=== PATIENT | male | born 1960 | race Caucasian/White ===

== ENCOUNTER 2017-10-20 13:05 | Emergency (ER) | payer OTHER, SELFPAY | END 2017-10-20 14:37 | disposition home or self-care (01) | PROVIDERS: Emergency Provider Nurse Practitioner; Visit Provider Nurse Practitioner | DX: J06.9 Acute upper respiratory infection, unspecified (principal); I10 Essential (primary) hypertension; J44.9 Chronic obstructive pulmonary disease, unspecified; Z87.891 Personal history of nicotine dependence | CPT/HCPCS: 87804; 87880; 99201 ==

== ENCOUNTER → 2017-11-13 15:33 | Outpatient (POV) | payer OTHER, SELFPAY | PROVIDERS: Visit Provider Internal Medicine | DX: Z00.00 Encounter for general adult medical examination without abnormal findings (principal) ==

== ENCOUNTER → 2018-03-08 09:34 | Outpatient (CLI) | payer OTHER, SELFPAY ==
--- NOTE | 2018-03-08 09:46 | XR_ITS ---
XR foot RT min 3V HISTORY: Atraumatic pain ITS.REASON: INJURY OF RT FOOT ORDERING PHYSICIAN: Evelia Jernigan PATIENT AGE: 57 years COMPARISON: None FINDINGS: Osteoarthritic changes are present at the first metatarsophalangeal joint with bony hypertrophic changes of the distal aspect of the first metatarsal. IMPRESSION: No acute fracture. Osteoarthritis first MTP joint
== END ==
PROVIDERS: PCP Nurse Practitioner Family; Visit Provider Nurse Practitioner Family
DX: S99.921A Unspecified injury of right foot, initial encounter (principal)
CPT/HCPCS: 73630

== ENCOUNTER → 2018-05-09 12:48 | Outpatient (CLI) | payer BC, SELFPAY ==
--- NOTE | 2018-05-09 12:50 | CT_ITS ---
EXAM: CT LUNG LOW DOSE WO CONTRAST COMPARISON Previous CT chest 04/09/2017 HISTORY: Smoking 5 years ago. former smoker history of asthma. 25-30 pack-year ===== TECHNIQUE: The exam was performed on a GE Light Speed [address] scanner using 3.0 mGy CTDI. A low dose helical CT CHEST was performed on a multi-detector scanner. All CT scans at this facility use one or more dose reduction techniques, viz.: automated exposure control; ma/kV adjustment per patient size (including targeted exams where dose is matched to indication; i.e. head) or iterative reconstruction technique. The LDCT was performed in a facility that meets the criteria for the screening program. Data regarding this exam was submitted to ACR which is an approved registry. The order for this exam indicates that it came as a result of a lung cancer screening counseling shard decision-making visit that included all the elements required of such a visit including smoking Cessation. The radiologist interpreting this exam meets the CMS criteria for the LDCT lung cancer screening program. The exam is reported using the Lung-RADS classification scale and reported to the ACR registry. NOTE: This study was performed for the specific purposes of lung cancer screening and is not an alternative to diagnostic chest CT. RADIATION DOSE: CTDI vol(CT dose Index-volume) = 2.9mGy DLP (Dose Length Product) = 115.03 mGy-cm FINDINGS: No suspicious lung nodules or masses.q Indeterminate/Non-actionable Nodules(Category2): Right lung axial slice 48 is a small 5.5 mm nodular density. It appears fairly stable since last year March 2017. Can be followed . Small density seen at the periphery of the left lung, some or left lower lobe is less evident today. Only questionable residual density here. On axial slice 46. No significant findings. Concern. Benign nodules(Category1)None 2.5 mm calcified granuloma anterior aspect R UL axial slice 40 LUNG PARENCHYMA Emphysema: Minimal centrilobular emphysematous changes No significant airway disease only slightly generous airway volume . Minimal scattered areas of scarring. No significant interstitial fibrotic changes OTHER ANATOMIC REGIONS Lymph Nodes: No hilar no mediastinal adenopathy. Malou Pleura: Unremarkable Cardiac: Unremarkable OTHER FINDINGS: No significant findings upper abdomen. Distended food filled stomach currently . Degenerative changes spine, most of the lower C-spine Generous volume thyroid bilaterally stable. IMPRESSION: 1. Lung RADS Category: 2 Indeterminate most likely tiny benign findings. No significant change since last year. Follow-up in one year on LD CT adequate 2. Other findings: No other pertinent findings evident RECOMMENDATIONS: 12 monthd LDCT follow-up
== END ==
PROVIDERS: PCP Nurse Practitioner Family; Visit Provider Internal Medicine
DX: Z87.891 Personal history of nicotine dependence (principal); Z12.2 Encounter for screening for malignant neoplasm of respiratory organs

== ENCOUNTER → 2018-05-21 10:04 | Outpatient (POV) | payer BC, SELFPAY | PROVIDERS: PCP Nurse Practitioner Family; Visit Provider Internal Medicine | DX: Z00.00 Encounter for general adult medical examination without abnormal findings (principal) ==

== ENCOUNTER 2018-11-19 09:30 | Outpatient (RCR) | payer BC, SELFPAY | END 2018-11-19 09:35 | disposition home or self-care (01) | LOC: PT 09:30 | PROVIDERS: Visit Provider Orthopaedic Surgery | DX: M51.36 Other intervertebral disc degeneration, lumbar region (principal) | CPT/HCPCS: 97010; 97012; 97014; 97035; 97110; 97163; 97164; G0283 ==

== ENCOUNTER → 2019-05-05 12:38 | Outpatient (CLI) | payer BC, SELFPAY ==
--- NOTE | 2019-05-05 13:12 | CT_ITS ---
CT lung screening EXAM: CT LUNG LOW DOSE WO CONTRAST HISTORY: 35 pack-year smoking history, asymptomatic for lung cancer ITS.REASON: H/O NICOTINE DEPENDENCE ORDERING PHYSICIAN: Frederikc Benitez MD PATIENT AGE: 59 years COMPARISON: 05/09/2018 TECHNIQUE: The exam was performed on a GE Light Speed [address] scanner using 2.90 mGy CTDI. A low dose helical CT CHEST was performed on a multi-detector scanner. All CT scans at the facility use one or more dose reduction, viz: automated exposure control, ma/kV adjustment per patient size (including targeted exams where dose is matched to indication, i.e. head), or iterative reconstruction technique. The LDCT was performed in a facility that meets the criteria for the screening program. Data regarding this exam was submitted to ACR which is an approved registry. The order for this exam indicates that it came as a result of a lung cancer screening counseling shard decision-making visit that included all the elements required of such a visit including smoking cessation. The radiologist interpreting this exam meets the CMS criteria for the LDCT lung cancer screening program. The exam is reported using the Lung-RADS classification scale and reported to the ACR registry. NOTE: This study was performed for the specific purposes of lung cancer screening and is not an alternative to diagnostic chest CT. RADIATION DOSE: CTDI vol(CT dose Index-volume) = 2.90mG DLP (Dose Length Product) = 104.20 mGcm FINDINGS: Mild coronary artery calcification. There is a stable 7 mm nodule in the right middle lobe. No new nodules are evident. Calcified granuloma right upper lobe. Incidental note made of right-sided gynecomastia. IMPRESSION: 1. Lung RADS Category: 2, benign 2. Other findings: Coronary artery calcifications RECOMMENDATIONS: 12 month LDCT follow-up
== END ==
PROVIDERS: PCP Family Medicine; Visit Provider Internal Medicine
DX: Z12.2 Encounter for screening for malignant neoplasm of respiratory organs (principal); Z87.891 Personal history of nicotine dependence

== ENCOUNTER → 2019-05-27 09:46 | Outpatient (POV) | payer BC, SELFPAY | PROVIDERS: Visit Provider Internal Medicine | DX: Z00.00 Encounter for general adult medical examination without abnormal findings (principal) ==

== ENCOUNTER → 2020-03-18 10:58 | Outpatient (CLI) | payer BC, SELFPAY ==
--- NOTE | 2020-03-18 11:06 | XR_ITS ---
PROCEDURE: XR SHOULDER RT MIN 2V CLINICAL INDICATION: RT SHOULDER INJURY,DECREASED ROM Pain with decreased range of motion COMPARISON: CXR CHEST(2 VIEWS-NOT PORTABLE) from 12/13/2015 FINDINGS: There is mild prominence of the acromioclavicular joint space which appears more prominent compared to 12/13/2015. Has the patient had an interval AC osteotomy? There is moderate subacromial stenosis which may be seen with rotator cuff disease/tears and may be confirmed with MRI. No acute fracture or dislocation is evident. Subchondral cystic changes are present along the greater tubercle of the humerus IMPRESSION: Subacromial stenosis which may be seen with rotator cuff disease/tear is. MRI may provide further evaluation. Suspect interval osteotomy at the AC joint. Subchondral cystic changes of the humeral head No acute fracture Dictated by: Onur Meade MD 03/18/2020 13:11 Electronically signed by Onur Meade MD in [place] 03/18/2020 13:11
== END ==
PROVIDERS: PCP Nurse Practitioner Family; Visit Provider Nurse Practitioner Family
DX: S49.91XA Unspecified injury of right shoulder and upper arm, initial encounter (principal); M25.611 Stiffness of right shoulder, not elsewhere classified
CPT/HCPCS: 73030

== ENCOUNTER → 2020-06-17 10:48 | Outpatient (CLI) | payer BC, SELFPAY ==
--- NOTE | 2020-06-17 10:53 | CT_ITS ---
PROCEDURE: CT LUNG SCREENING CLINICAL INDICATION: LDCT screening Former smoker Quit smoking 5 years ago 52.5 pack year smoking history COMPARISON: CT LUNGSCREEN CT lung screening from 05/05/2019 TECHNIQUE: The exam was performed on a GE Light Speed [address] scanner using 2.90 mGy CTDI. A low dose helical CT CHEST was performed on a multi-detector scanner. All CT scans at the facility use one or more dose reduction, viz: automated exposure control, ma/kV adjustment per patient size (including targeted exams where dose is matched to indication, i.e. head), or iterative reconstruction technique. The LDCT was performed in a facility that meets the criteria for the screening program. Data regarding this exam was submitted to ACR which is an approved registry. The order for this exam indicates that it came as a result of a lung cancer screening counseling shard decision-making visit that included all the elements required of such a visit including smoking cessation. The radiologist interpreting this exam meets the CMS criteria for the LDCT lung cancer screening program. The exam is reported using the Lung-RADS classification scale and reported to the ACR registry. NOTE: This study was performed for the specific purposes of lung cancer screening and is not an alternative to diagnostic chest CT. RADIATION DOSE: CTDI vol(CT dose Index-volume) = 2.90mG DLP (Dose Length Product) = 105.51 mGcm FINDINGS: Or changes of COPD. There is a stable 6 mm noncalcified nodule in the right middle lobe just inferior to the minor fissure. A new rounded soft tissue mass is present in the right lower lobe posteriorly measuring 15 mm by 17 mm. There are small satellite nodules around this nodule with some minimal perinodular consolidation. This has developed since the previous exam. A 5 mm noncalcified nodules present in the left lower lobe not significantly changed image 40. No effusions or infiltrates. There are degenerative changes in the thoracic spine. OTHER FINDINGS: Mild coronary artery calcifications. IMPRESSION: Lung-RADS Category 4A, suspicious regarding the new nodule with small satellite nodules in the right lower lobe. This could very well be inflammatory/infectious in nature. Neoplasm is also consideration. This is at the end of a terminal ductal bronchial unit and should be accessible for tissue sampling with bronchoscopy. Follow-up : Suggest diagnostic CT without and with contrast. If this persist and does not enhance as a vascular abnormality then, would recommend pulmonary consult with bronchoscopy with tissue sampling Dictated by: Onur Meade MD 06/28/2020 13:12 Onur Meade MD in [place] 06/28/2020 13:12
== END ==
PROVIDERS: PCP Nurse Practitioner Family; Visit Provider Internal Medicine Pulmonary Disease
DX: Z87.891 Personal history of nicotine dependence (principal)

== ENCOUNTER → 2020-08-30 18:49 | Outpatient (CLI) | payer BC, SELFPAY ==
[2020-08-30 19:41] LABS: Alanine Aminotransferase 37 U/L (12-78); Albumin Level 4.5 g/dl (3.5-5.0); Albumin/Globulin Ratio 1.7 (1.1-1.8); Alkaline Phosphatase 103 U/L (38-126); Anion Gap 16.3 mEq/L (5-15); Aspartate Amino Transferase 32 U/L (17-59); Bilirubin,Total 0.5 mg/dl (0.2-1.3); Blood Urea Nitrogen 18 mg/dl (9-20); Calcium 9.8 mg/dl (8.4-10.2); Carbon Dioxide 26 mmol/L (22.0-30.0); Chloride 103 mmol/L (98-107); Creatine Kinase 246 U/L (55-170); Estimated Glomerular Filt Rate 62 ml/min (>60); GFR (African American) 75 ML/MIN (>60); Globulin 2.7 g/dL (1.3-3.2); Glucose 96 mg/dl (74-100); Potassium 4.3 mmoL/L (3.5-5.1); Sodium 141 mmol/L (136-145); Total Protein,Serum 7.2 g/dl (6.3-8.2)
[2020-08-30 19:46] LABS: C-Reactive Protein 4.8 mg/L (0-4)
[2020-08-30 21:21] LABS: Basophils # 0.1 K/mm3 (0-0.2); Basophils % 0.6 % (0.1-2.0); Eosinophils # 0.1 K/mm3 (0.0-0.4); Eosinophils % 1.3 % (0.1-12.0); Hematocrit 46.5 % (42.0-52.0); Hemoglobin 15.6 g/dL (14.1-18.0); Lymphocytes # 2.2 K/mm3 (0.7-4.5); Lymphocytes % 23.5 % (10-50); Mean Corpuscular HGB Conc 33.6 g/dL (31.8-35.4); Mean Corpuscular Hemoglobin 31.5 pg (27.0-31.2); Mean Corpuscular Volume 93.8 fl (80-94); Mean Platelet Volume 8.1 fl (7.4-10.4); Monocytes # 0.6 K/mm3 (0.1-1.0); Monocytes % 6.3 % (1.7-9.3); Neutrophils # 6.5 K/mm3 (1.8-7.8); Neutrophils % 68.3 % (37.0-80.0); Platelet Count 235 K/mm3 (142-424); Red Blood Count 4.96 M/mm3 (4.60-6.20); Red Cell Distribution Width 13.5 % (11.5-17.5); White Blood Count 9.5 K/mm3 (4.8-10.8)
[2020-08-30 22:00] LABS: Erythrocyte Sedimentation Rate 10 mm/hr (0-20)
== END ==
PROVIDERS: Visit Provider Internal Medicine Infectious Disease
DX: M00.811 Arthritis due to other bacteria, right shoulder (principal); M86.9 Osteomyelitis, unspecified
CPT/HCPCS: 80053; 82550; 85025; 85651; 86140

== ENCOUNTER 2020-10-01 10:00 | Outpatient (RCR) | payer BC, MEDICAID, SELFPAY | END 2020-10-01 10:05 | disposition home or self-care (01) | LOC: PT 10:00 | PROVIDERS: Visit Provider Orthopaedic Surgery | DX: M25.511 Pain in right shoulder (principal) | CPT/HCPCS: 97010; 97014; 97016; 97033; 97035; 97110; 97140; 97163; 97164; G0283 ==

== ENCOUNTER 2020-10-04 09:45 | Emergency (ER) | payer MEDICAID, SELFPAY ==
[2020-10-04 09:54] VITALS: BP 167/100; PULSE 92; RESP 16; TEMP 36.8; O2SAT 94; BMI 26.4
--- NOTE | 2020-10-04 10:11 | XR_ITS ---
PROCEDURE: XR CHEST PORTABLE CLINICAL HISTORY: soa Shortness of air with COMPARISON: CR CXR CHEST(2 VIEWS-NOT PORTABLE) from 08/01/2015 CR CXR CHEST(2 VIEWS-NOT PORTABLE) from 10/27/2015 CR CXR CHEST(2 VIEWS-NOT PORTABLE) from 12/13/[address] [facility] [address] CHEST W/O CONTRAST from 04/09/2017 FINDINGS: The cardiomediastinal silhouette and pulmonary vascularity are within normal limits. The lungs are clear without infiltrates, suspicious nodules, or pleural effusions. No acute bony abnormalities. IMPRESSION: No acute findings. Dictated by: Onur Meade MD 10/04/2020 10:42 Onur Meade MD in [place] 10/04/2020 10:42
[2020-10-04 10:31] LABS: Chloride 102 mmol/L (98-107)
[2020-10-04 10:32] LABS: Potassium 4.4 mmoL/L (3.5-5.1); Sodium 139 mmol/L (136-145)
[2020-10-04 10:34] LABS: Blood Urea Nitrogen 15 mg/dl (9-20); Creatinine Clearance Estimated 89 mL/min (50-200); Estimated Glomerular Filt Rate 69 ml/min (>60); GFR (African American) 83 ML/MIN (>60)
[2020-10-04 10:35] LABS: Anion Gap 12.4 mEq/L (5-15); Calcium 9.9 mg/dl (8.4-10.2); Carbon Dioxide 29 mmol/L (22.0-30.0); Glucose 116 mg/dl (74-100)
--- NOTE | 2020-10-04 10:44 | ECG_ITS ---
APPROVED REPORT Exam: Resting ECG HR:93 bpm ECG Measurements Heart Rate 93 AXES OK 140 P 62 QRSd 76 QRS 45 QT 364 T 80 QTc 452 Conclusion Normal sinus rhythm Normal ECG Electronically signed by : Dev Crockett, 10/04/2020 19:08:42
--- NOTE | 2020-10-04 10:45 | HMH.EDGENADL ---
ED Disposition Clinical Impression: Bronchitis Disposition: Home, Self-Care Condition on Discharge: Good Instructions: DI for Chronic Bronchitis Prescriptions: predniSONE [Deltasone 20mg tablet] 40 mg PO DAILY 5 Days #10 tab Prescription Printed Fluticasone/Umeclidin/Vilanter [Trelegy Ellipta 100-62.5-25] 1 each IH DAILY #1 blst.w.dev Prescription Printed Azithromycin [Z-Mook 250mg Tab*] 250 mg PO UD DOSE PK #6 tab Prescription Printed Referrals: Dev Moseley MD [Primary Care Provider] - - Critical Care Critical Care Time: No Attestation: On 10/04/20, the high probability of a clinically significant, sudden or life threatening deterioration of the following system(s) required my full and direct attention, intervention and personal management. The time I documented below is in addition to time spent performing reported procedures but includes the following listed in this critical care notation. Medical Decision Making - Bruno Inquiry Pt receiving controlled substance: No Vital Signs: 10/04/20 09:54 10/04/20 11:16 10/04/20 12:25 Temperature 98.3 F 98.2 F Temperature Source Oral Oral Pulse Rate 91 H Pulse Rate [Right] 92 H 99 H Respiratory Rate 16 20 16 Blood Pressure 136/86 Blood Pressure [Right Arm] 167/100 H 146/102 H Blood Pressure Mean [Right Arm] 122 116 Blood Pressure Source Automatic Cuff Blood Pressure Source [Right Arm] Automatic Cuff Automatic Cuff Blood Pressure Position Sitting Blood Pressure Position [Right Arm] Sitting Sitting 02 Sat by Pulse Oximetry 94 L 93 L Oxygen Delivery Method Room Air Room Air - Lab Data Lab Results 10/04/20 09:59: WBC 10.2, RBC 5.21, Hgb 16.7, Hct 48.0, MCV 92.0, MCH 32.0 H, MCHC 34.8, RDW 13.7, Plt Count 209, MPV 7.3 L, Neut % (Auto) 70.7, Lymph % (Auto) 15.1, [place] % (Auto) 4.6, Eos % (Auto) 8.6, Baso % (Auto) 1.1, Neut # (Auto) 7.2, Lymph # (Auto) 1.5, [place] # (Auto) 0.5, Eos # (Auto) 0.9 H, Baso # (Auto) 0.1 12/14/20 09:59: Sodium 139, Potassium 4.4, Chloride 102, Carbon Dioxide 29, Anion Gap 12.4, BUN 15, Creatinine 1.10, Estimated Creat Clear 89, Estimated GFR 69, Est GFR ( Amer) 83, Glucose 116 H, Calcium 9.9, Troponin I < 0.01 Result diagrams: 10/04/20 09:59 10/04/20 09:59 Orders (Tests/Meds): ED MEDICATIONS Discontinued Medications Generic Name Dose Route Start Last Admin Trade Name Freq PRN Reason Stop Dose Admin Albuterol Sulfate 8 puffs 10/04/20 10:12 10/04/20 10:55 Albuterol-Hfa 90mcg/Puff Inhaler 8gm IH 10/04/20 10:13 8 puffs ONCE ONE Administration Methylprednisolone Sodium Succinate 125 mg 10/04/20 10:12 10/04/20 10:44 Methylprednisolone Sod Succ 125mg Vial IV 10/04/20 10:13 125 mg ONCE ONE Administration Miscellaneous 1 unit 10/04/20 10:12 10/04/20 10:55 Aerochamber/Optihaler MC 10/04/20 10:13 1 unit ONCE ONE Administration ORDERS Category Date Time Status ECG Request by /Iker Stat Y 10/04/20 10:11 Stop Req Medical Decision Narrative: The patient is a 60 year old male who presents with shortness of breath. On arrival he is hemodyanmically stable, tachycardic to the 110s and hypertensive to the 160s. Lungs are clear. Labs including CBC, BMP, troponins were obtained as well as CXR. EKG is nonischemic and intervals are WNL. Low risk for PE by Well's criteria. No concern for ACS. likely COPD exacerbation. Given albuterol MDI and solumedrol 125 mg IV. On reevaluation patient feels somewhat better. Will treat for bronchitis with prednsione, azithromycin and refill his inhalers. Will give return precautions. General Adult HPI - General Chief complaint: Shortness of Breath/Dyspnea Stated complaint: soa Time Seen by Provider: 10/04/20 09:55 Mode of Arrival: Ambulatory Limitations: No Limitations Description of Symptoms (Recalled from ER Triage Doc. by RN): Pt c/o SOA over the past couple of days with productive cough. Advises he has history of resp illness
[2020-10-04 10:49] LABS: Troponin I < 0.01 ng/ml (0.00-0.034)
[2020-10-04 10:57] LABS: Basophils # 0.1 K/mm3 (0-0.2); Basophils % 1.1 % (0.1-2.0); Eosinophils # 0.9 K/mm3 (0.0-0.4); Eosinophils % 8.6 % (0.1-12.0); Hemoglobin 16.7 g/dL (14.1-18.0); Lymphocytes # 1.5 K/mm3 (0.7-4.5); Lymphocytes % 15.1 % (10-50); Mean Corpuscular HGB Conc 34.8 g/dL (31.8-35.4); Mean Platelet Volume 7.3 fl (7.4-10.4); Monocytes # 0.5 K/mm3 (0.1-1.0); Monocytes % 4.6 % (1.7-9.3); Neutrophils # 7.2 K/mm3 (1.8-7.8); Neutrophils % 70.7 % (37.0-80.0); Platelet Count 209 K/mm3 (142-424); Red Blood Count 5.21 M/mm3 (4.60-6.20); Red Cell Distribution Width 13.7 % (11.5-17.5); White Blood Count 10.2 K/mm3 (4.8-10.8)
[2020-10-04 11:16] VITALS: BP 146/102; PULSE 99; RESP 20; O2SAT 93
[2020-10-04 12:25] VITALS: BP 136/86; PULSE 91; RESP 16; TEMP 36.8; O2SAT 94
== END 2020-10-04 12:28 | disposition home or self-care (01) ==
PROVIDERS: Emergency Provider Emergency Medicine; PCP Family Medicine
DX: J20.9 Acute bronchitis, unspecified (principal); J45.909 Unspecified asthma, uncomplicated; Z87.891 Personal history of nicotine dependence
CPT/HCPCS: 71045; 80048; 84484; 85025; 93005; 96374; 99283

== ENCOUNTER → 2020-10-29 10:41 | Outpatient (CLI) | payer OTHER, SELFPAY ==
--- NOTE | 2020-10-29 10:45 | US_ITS ---
PROCEDURE: US EXTREMITY RT LIMITED CLINICAL INDICATION: MASS OF RT AXILLA COMPARISON: No exams were available for comparison FINDINGS: No sonographic abnormalities evident. No cystic lesions or solid mass is apparent. Small nodes are present in the right axilla less than 2 cm. IMPRESSION: No cystic or solid mass is apparent Dictated by: Onur Meade MD 10/30/2020 07:38 Onur Meade MD in [place] 10/30/2020 07:38
== END ==
PROVIDERS: PCP Nurse Practitioner Family; Visit Provider Nurse Practitioner Family
DX: R22.31 Localized swelling, mass and lump, right upper limb (principal)
CPT/HCPCS: 76882

== ENCOUNTER → 2020-12-20 12:40 | Outpatient (CLI) | payer OTHER, SELFPAY ==
[2020-12-20 13:25] VITALS: PULSE 75; PULSE 82
--- NOTE | 2020-12-20 14:11 | CT_ITS ---
PROCEDURE: CT CHEST WO CON CLINICAL INDICATION: Nodule followup Asthma soa Right sided ln COMPARISON: CT LUNGSCREEN CT lung screening from 05/05/[address] LUNG SCREENING from 06/17/2020 TECHNIQUE: Axial images obtained with sagittal and coronal reformats. All CT scans at the facility use one or more dose reduction, viz: automated exposure control, ma/kV adjustment per patient size (including targeted exams where dose is matched to indication, i.e. head), or iterative reconstruction technique. FINDINGS: Coronary artery calcifications are present. There is normal heart size. There are few scattered small mediastinal lymph nodes. No mediastinal or hilar mass or adenopathy. There is a stable 6 mm nodular opacity along the right minor fissure anteriorly. There is a persistent lesion in the right lower lobe which appears slightly more prominent. The lesion measures 2 cm AP and 1.7 cm transverse with adjacent satellite nodules the largest of which is lateral and measures 6 mm . This lesion is contiguous with the posterior basilar segmental bronchus and could be infectious or neoplastic. No effusions are evident. No new nodules are apparent. Degenerative changes are present in the thoracic spine. IMPRESSION: Persistent right lower lobe mass macrolobular in nature with a few small satellite nodules. The lesion appears slightly more voluminous compared to the previous exam. Neoplasm is considered. Dictated by: Onur Meade MD 12/21/2020 13:20 Onur Meade MD in [place] 12/21/2020 13:20
== END ==
PROVIDERS: PCP Family Medicine; Visit Provider Internal Medicine Pulmonary Disease
DX: R91.8 Other nonspecific abnormal finding of lung field (principal)
CPT/HCPCS: 71250; 94060; 94618; 94640; 94726; 94729

== ENCOUNTER 2021-01-06 13:00 | Outpatient (RCR) | payer OTHER, SELFPAY | END 2021-01-06 13:05 | disposition home or self-care (01) | LOC: PT 13:00 | PROVIDERS: Visit Provider Orthopaedic Surgery | DX: M25.511 Pain in right shoulder (principal); M75.101 Unspecified rotator cuff tear or rupture of right shoulder, not specified as traumatic | CPT/HCPCS: 97010; 97014; 97033; 97110; 97163; G0283 ==

== ENCOUNTER → 2021-01-14 07:23 | Outpatient (CLI) | payer OTHER, SELFPAY | PROVIDERS: PCP Family Medicine; Visit Provider Obstetrics & Gynecology Gynecology | DX: Z01.818 Encounter for other preprocedural examination (principal); Z11.52 Encounter for screening for COVID-19 | CPT/HCPCS: U0003 ==

== ENCOUNTER → 2021-01-27 13:56 | Outpatient (CLI) | payer OTHER, SELFPAY ==
--- NOTE | 2021-01-27 14:05 | XR_ITS ---
PROCEDURE: XR KNEE LT 3V CLINICAL INDICATION: SWELLING OF LT KNEE JOINT, PRIMARY OSTEOARTHRITIS OF LT KNEE COMPARISON: No exams were available for comparison FINDINGS: No fracture or dislocation. No lytic or blastic change. There is normal mineralization. 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 There are minimal osteoarthritic changes of the medial compartment and patellofemoral joint with suspected small suprapatellar effusion. Minimal chondrocalcinosis noted of the lateral compartment. Other findings:None. IMPRESSION: 1. Minimal osteoarthritic change with chondrocalcinosis and bipartite patella with small knee joint effusion Dictated by: Onur Meade MD 01/27/2021 14:23 Onur Meade MD in [facility] 01/27/2021 14:23
== END ==
PROVIDERS: PCP Nurse Practitioner Family; Visit Provider Nurse Practitioner Family
DX: M25.462 Effusion, left knee (principal); M17.12 Unilateral primary osteoarthritis, left knee
CPT/HCPCS: 73562

== ENCOUNTER → 2021-06-07 12:01 | Outpatient (CLI) | payer OTHER, SELFPAY ==
--- NOTE | 2021-06-07 12:10 | XR_ITS ---
PROCEDURE: XR HIP RT 2-3V W/PELVIS CLINICAL INDICATION: LUMBAGO WITH SCIATICA, LEFT AND RIGHT HIP PAIN COMPARISON: CR XR HIP LT 2-3V W/PELVIS from 06/07/2021 FINDINGS: There are mild osteoarthritic changes of the both hips with concentric with slight loss of joint space and acetabular osteophyte formation. No fracture or dislocation. No lytic changes. There is a 12 mm sclerotic focus along the left ilium medially. This may represent a bone island. Follow-up may confirm stability. IMPRESSION: Mild osteoarthritic change of both hips. Sclerotic lesion of the left ilium medially which may be due to a bone island. Stability may be confirmed with follow-up Dictated by: Onur Meade MD 06/07/2021 13:36 Onur Meade MD in [facility] 06/07/2021 13:36
--- NOTE | 2021-06-07 12:10 | XR_ITS ---
PROCEDURE: XR LUMBAR SPINE MIN 4V CLINICAL INDICATION: LUMBAGO WITH SCIATICA, LEFT AND RIGHT HIP PAIN COMPARISON: CT SPLUMBWO CT lumbar spine wo con from 09/15/2018 FINDINGS: There is normal alignment. There has been prior posterior fusion at L4 and L5 with inter pedicular screws in place. Disc spacer device is present at that level. There is degenerative disc disease at L4-5 with decrease in the disc space and anterior osteophytes. Small anterior osteophytes are also present at L2 and L3. Degenerative disc disease is also present in the lower thoracic spine. No acute fracture. Other findings:None. IMPRESSION: Postsurgical and degenerative changes, no acute finding. Dictated by: Onur Meade MD 06/07/2021 13:31 Onur Meade MD in [facility] 06/07/2021 13:31
== END ==
PROVIDERS: PCP Family Medicine; Visit Provider Nurse Practitioner Family
DX: M25.552 Pain in left hip (principal); M25.551 Pain in right hip; M54.42 Lumbago with sciatica, left side; M54.41 Lumbago with sciatica, right side
CPT/HCPCS: 72110; 73502

== ENCOUNTER → 2021-06-30 14:42 | Outpatient (CLI) | payer OTHER, SELFPAY ==
--- NOTE | 2021-06-30 14:42 | CT_ITS ---
PROCEDURE INFORMATION: Exam: CT Chest Without Contrast; Diagnostic Exam date and time: 06/30/2021 2:42 PM Age: 61 years old Clinical indication: Abnormal findings; Abnormal radiologic exam of lung or chest; Patient HX: F/u from prior abnormal CT; Additional info: 6 month f/u TECHNIQUE: Imaging protocol: Diagnostic computed tomography of the chest without contrast. Radiation optimization: All CT scans at this facility use at least one of these dose optimization techniques: automated exposure control; mA and/or kV adjustment per patient size (includes targeted exams where dose is matched to clinical indication); or iterative reconstruction. COMPARISON: CT CHEST WO CON 12/20/2020 2:38 PM FINDINGS: Lungs: Attention is directed to the right lower lobe. There is a somewhat triangular macrolobular noncalcified mass present within the right lower lobe. Again, it measures 2.0 x 1.7 cm in size. It is stable. There is a small calcified granuloma noted within the anterior aspect of the right mid lung field. It measures 3 mm in diameter and is stable when compared with prior examination. Series number 3, image 36. Pleural spaces: Unremarkable. No pneumothorax. No pleural effusion. Heart: Unremarkable. No cardiomegaly. No pericardial effusion. Coronary arteries: There is minimal calcification noted along the course of the left coronary artery. Mediastinal space: No evidence of mediastinal or hilar mass. Aorta: Unremarkable. No aortic aneurysm. Lymph nodes: There are visible unenlarged station 4 and station 7 lymph nodes identified. Bones/joints: Unremarkable. No acute fracture. Mild degenerative changes of the thoracic spine. Soft tissues: Unremarkable. IMPRESSION: Taking into account differences in technique no real interval change in the appearance of the chest since prior examination of 12/20/2020. For both low risk and high risk patients, consider CT Chest at 3 months, PET/CT, or biopsy. (Reference: [place]) References: Samrahorivas Johnson, et al. Guidelines for Management of Incidental Pulmonary Nodules Detected on CT Images: From the Fleischner Society 2017. Radiology. 2017;284(1):228-243.
== END ==
PROVIDERS: PCP Family Medicine; Visit Provider Internal Medicine Pulmonary Disease
DX: R91.8 Other nonspecific abnormal finding of lung field (principal)
CPT/HCPCS: 71250

== ENCOUNTER 2021-07-04 09:24 | Emergency (ER) | payer OTHER, SELFPAY ==
[2021-07-04 09:24] VITALS: BP 126/79; PULSE 107; RESP 22; TEMP 37; O2SAT 96; BMI 26.4
--- NOTE | 2021-07-04 10:07 | HMH.EDUTC ---
[facility] [place] Clinical Impression: Exposure to COVID-19 virus URI (upper respiratory infection) Qualifiers: URI type: unspecified URI Qualified Code(s): J06.9 - Acute upper respiratory infection, unspecified Disposition: Home, Self-Care Condition on Discharge: Good Instructions: DI for COVID-19 (Suspected or Confirmed ), Coronavirus Disease 2019, Preventing the Spread of Coronavirus Discharge Instructions Additional Instructions: *Monitor Temp, Over the counter Motrin or Tylenol as directed/as needed Tylenol every 4 hours and Motrin every 6 hours (as long as your family doctor has told you that you can take it) for fever or pain. and straight to ER if unable to lower temp less than 101.0 after medication given *Warm salt water gargles may help to soothe the throat *Throat Lozenges *Warm fluids like tea with honey may help to soothe the throat *Sleep elevated *Humidifier/Vaporizer *Flonase 2 sprays in each nostril daily but be aware that it may take 2-3 days before you notice improvement *Bromfed may cause drowsiness. Know how it effects you (your child) before driving, caring for small child, or sending your child to school. Not other antihistamines/allergy medications while taking bromfed Your throat swab was sent for culture. Those results are typically sent to your primary care. Be sure to follow up in 2-3 days with your family doctor/primary care physician if no improvement so they can review those result and treat if necessary. If you don?t have a primary care doctor, I recommend you get one but in the mean time, you will have to return to a walk in clinic Follow up IMMEDIATELY for new or worsening symptoms or no Noticeable improvement over the next 48-72 hours. 911 for difficulty breathing or swallowing You were tested for today for COVID19 your test result should be back in the next 24-48 hours, you was given handout on how to check for your results on [facility] if you have issues or no internet access you may call the [facility] You was given a handout with instructions for Self Quarantine and Self isolation for while you wait on test results and what to do if they are positive If you are positive the Health Dept will be contacting you also Make sure to take your Vitamins Vit. C Vit D and Zinc if you can take them Prescriptions: methylPREDNISolone [Medrol 4mg tab] 4 mg PO DIRECTED #21 tab Transmission Status: Pending to [id number] Azithromycin [Z-Mook 250mg Tab] 250 mg PO DIRECTED #6 tab Transmission Status: Pending to [id number] Referrals: Dev Moseley MD [Primary Care Provider] - As needed Forms: Work/School Release Time of Disposition: 10:20 Medical Decision Making - Bruno Inquiry Pt receiving controlled substance: No Bruno was queried for this patient: No Vital Signs: 07/04/21 09:24 Temperature 98.6 F Temperature Source Oral Pulse Rate [Left Radial] 107 H Respiratory Rate 22 Blood Pressure [Left Arm] 126/79 Blood Pressure Mean [Left Arm] 94 Blood Pressure Source [Left Arm] Automatic Cuff Blood Pressure Position [Left Arm] Sitting 02 Sat by Pulse Oximetry 96 Oxygen Delivery Method Room Air Orders (Tests/Meds): ORDERS Category Date Time Status Covid-19 Nasal PCR ([facility]) Routine Lab 07/04/21 09:48 Ordered Medical Decision Narrative: Patient states that he has taken both azithromycin and Medrol in the past without complications or reactions [facility] [place] - General Stated complaint: covid exposure and symptoms Time Seen by Provider: 07/04/21 10:07 Mode of Arrival: Ambulatory Source of Information: Patient Limitations: No Limitations Description of Symptoms (Recalled from Triage Doc. by RN): Pt c/o COVID symptoms since Sunday HEENT Symptoms (Recalled from RN notes): No Resp Symptoms (Recalled from RN notes): No Skin Symptoms (Recalled from RN notes): No MS Symptoms (Recalled from RN notes): No Functional Status (Recalled from RN notes): n/a - His
[2021-07-04 10:23] VITALS: BP 126/79; PULSE 107; RESP 22; TEMP 37; O2SAT 96
== END 2021-07-04 10:26 | disposition home or self-care (01) ==
PROVIDERS: Emergency Provider Nurse Practitioner; PCP Family Medicine
DX: U07.1 COVID-19 (principal); J06.9 Acute upper respiratory infection, unspecified
CPT/HCPCS: 99202; C9803; G0463; U0003; U0005

== ENCOUNTER 2021-07-10 10:02 | Inpatient (IN) | payer OTHER, SELFPAY ==
[2021-07-10] VITALS (12 sets, daily range): BP systolic 124–149; BP diastolic 74–89; PULSE 84–97; RESP 16–32; TEMP 36.8–37.4; O2SAT 78–100; BMI 26.4; BMI 23.7
--- NOTE | 2021-07-10 10:10 | ECG_ITS ---
APPROVED REPORT Exam: Resting ECG HR:86 bpm ECG Measurements Heart Rate 86 AXES OR 124 P 41 QRSd 82 QRS 10 QT 368 T 86 QTc 440 Conclusion Normal sinus rhythm Nonspecific ST and T wave abnormality Abnormal ECG Electronically signed by : Dev Crockett MD 07/12/2021 17:40:06
--- NOTE | 2021-07-10 10:15 | XR_ITS ---
PROCEDURE INFORMATION: Exam: XR Chest Exam date and time: 07/10/2021 10:15 AM Age: 61 years old Clinical indication: Pain; On breathing; Additional info: Covid TECHNIQUE: Imaging protocol: XR of the chest. Views: 1 view. COMPARISON: CT CHEST WO CON 06/30/2021 2:57 PM FINDINGS: Tubes, catheters and devices: Overlying EKG wires Lungs: Patchy bilateral opacities may represent multifocal pneumonia including COVID-19.. Pleural spaces: Unremarkable. No pleural effusion. No pneumothorax. Heart/Mediastinum: Unremarkable. No cardiomegaly. Bones/joints: Unremarkable. IMPRESSION: Patchy bilateral opacities may represent multifocal pneumonia including COVID-19..
--- NOTE | 2021-07-10 10:27 | HMH.EDGENADL ---
ED Disposition Clinical Impression: COVID-19, Hypoxia COPD (chronic obstructive pulmonary disease) Qualifiers: COPD type: unspecified COPD Qualified Code(s): J44.9 - Chronic obstructive pulmonary disease, unspecified Disposition: Admitted As Inpatient Condition on Discharge: Fair Referrals: Dev Moseley MD [Primary Care Provider] - - Critical Care Critical Care Time: Yes Attestation: On 07/10/21, the high probability of a clinically significant, sudden or life threatening deterioration of the following system(s) required my full and direct attention, intervention and personal management. The time I documented below is in addition to time spent performing reported procedures but includes the following listed in this critical care notation. Total Critical Care Time: 30 (respiratory failure requiring HFNC after escalation and breahting treatments) Vital system(s) involved:: Respiratory Failure My critical care processes included: Assessment & monitoring of V/S, Initial and Re-exams, Data Review/Interpretation, Medication Orders and management, Documentation Medical Decision Making - Medical Records Medical records reviewed: Yes: I reviewed the patient's medical records. - Bruno Inquiry Pt receiving controlled substance: No Vital Signs: 07/10/21 10:03 07/10/21 10:30 Temperature 98.2 F Temperature Source Oral Pulse Rate 97 H Pulse Rate [Right Radial] 93 H Respiratory Rate 32 H 21 Blood Pressure 142/89 H Blood Pressure [Right Arm] 141/86 H Blood Pressure Mean [Right Arm] 104 Blood Pressure Source [Right Arm] Manual Cuff/ Doppler Blood Pressure Position [Right Arm] Sitting 02 Sat by Pulse Oximetry 78 L 89 L Oxygen Delivery Method Room Air Nasal Cannula Oxygen Flow Rate (LPM) 6 - Lab Data Lab Results 07/10/21 10:15: WBC 10.2, RBC 4.60, Hgb 14.5, Hct 42.9, MCV 93.2, MCH 31.5 H, MCHC 33.8, RDW 12.2, Plt Count 259, MPV 7.4, Neut % (Auto) 87.8 H, Lymph % (Auto) 7.2 L, Gulf % (Auto) 3.4, Eos % (Auto) 0.5, Baso % (Auto) 1.0, Neut # (Auto) 9.0 H, Lymph # (Auto) 0.7, [place] # (Auto) 0.4, Eos # (Auto) 0.1, Baso # (Auto) 0.1, Total Counted 100, Neutrophils % (Manual) 84 H, Lymphocytes % (Manual) 12, Monocytes % (Manual) 4, Platelet Estimate Normal, Macrocytosis 1+ 07/10/21 10:15: Sodium 130 L, Potassium 3.2 L, Chloride 87 L, Carbon Dioxide 31 H, Anion Gap 15.2 H, BUN 17, Creatinine 0.90, Estimated Creat Clear 108, Estimated GFR 86, Est GFR ( Amer) 105, Glucose 172 H, Calcium 9.0, Total Bilirubin 0.8, AST 217 H, ALT 190 H, Alkaline Phosphatase 87, Total Protein 7.3, Albumin 4.0, Globulin 3.3 H, Albumin/Globulin Ratio 1.2 07/10/21 10:15: Lactate 1.7 Result diagrams: 07/10/21 10:15 07/10/21 10:15 Orders (Tests/Meds): ED MEDICATIONS Generic Name Dose Route Start Last Admin Trade Name Freq PRN Reason Stop Dose Admin Lactated Ringer's 1,000 mls @ 999 mls/hr 07/10/21 10:45 07/10/21 10:47 Lactated Ringer's 1000 Ml Bag IV 07/10/21 11:45 999 mls/hr .Q1H1M [place] Administration Discontinued Medications Generic Name Dose Route Start Last Admin Trade Name Freq PRN Reason Stop Dose Admin Albuterol/Ipratropium 3 ml 07/10/21 10:36 Ipratropium/Albuterol 3 Ml Neb 07/10/21 10:37 ONCE ONE Albuterol/Ipratropium 6 puff 07/10/21 10:42 Combivent 20mcg/100mcg Respimat Inhaler 07/10/21 10:43 ONCE ONE Dexamethasone Sodium Phosphate 10 mg 07/10/21 10:36 07/10/21 10:46 Dexamethasone 4mg/Ml 5ml Mdv IV 07/10/21 10:37 10 mg ONCE ONE Administration Miscellaneous 1 unit 07/10/21 10:42 Aerochamber/Optihaler 07/10/21 10:43 ONCE ONE Ondansetron HCl 4 mg 07/10/21 10:36 07/10/21 10:46 Ondansetron 4mg/2ml Vial IV 07/10/21 10:37 4 mg ONCE ONE Administration Potassium Chloride 30 meq 07/10/21 10:59 Potassium Chloride 10meq Capsule.Er PO 07/10/21 11:00 ONCE ONE ORDERS Category Date Time Status XR chest portable Stat Exams
[2021-07-10 10:32] LABS: Basophils # 0.1 K/mm3 (0-0.2); Eosinophils # 0.1 K/mm3 (0.0-0.4); Eosinophils % 0.5 % (0.1-12.0); Hematocrit 42.9 % (42.0-52.0); Hemoglobin 14.5 g/dL (14.1-18.0); Lymphocytes # 0.7 K/mm3 (0.7-4.5); Lymphocytes % 7.2 % (10-50); Mean Corpuscular HGB Conc 33.8 g/dL (31.8-35.4); Mean Corpuscular Hemoglobin 31.5 pg (27.0-31.2); Mean Corpuscular Volume 93.2 fl (80-94); Mean Platelet Volume 7.4 fl (7.4-10.4); Monocytes # 0.4 K/mm3 (0.1-1.0); Monocytes % 3.4 % (1.7-9.3); Neutrophils % 87.8 % (37.0-80.0); Platelet Count 259 K/mm3 (142-424); Red Cell Distribution Width 12.2 % (11.5-17.5); White Blood Count 10.2 K/mm3 (4.8-10.8)
[2021-07-10 10:34] LABS: MANUAL DIFFERENTIAL MANUAL DIFFERENTIAL (MANUAL DIFF)
[2021-07-10 10:39] LABS: Alanine Aminotransferase 190 U/L (12-78); Albumin/Globulin Ratio 1.2 (1.1-1.8); Alkaline Phosphatase 87 U/L (38-126); Anion Gap 15.2 mEq/L (5-15); Aspartate Amino Transferase 217 U/L (17-59); Bilirubin,Total 0.8 mg/dl (0.2-1.3); Blood Urea Nitrogen 17 mg/dl (9-20); Carbon Dioxide 31 mmol/L (22.0-30.0); Chloride 87 mmol/L (98-107); Creatinine Clearance Estimated 108 mL/min (50-200); Estimated Glomerular Filt Rate 86 ml/min (>60); GFR (African American) 105 ML/MIN (>60); Globulin 3.3 g/dL (1.3-3.2); Glucose 172 mg/dl (74-100); Lactic Acid 1.7 mmol/L (0.7-2.1); Potassium 3.2 mmoL/L (3.5-5.1); Sodium 130 mmol/L (136-145); Total Protein,Serum 7.3 g/dl (6.3-8.2)
[2021-07-10 10:51] LABS: Lymphocytes % 12 % (10-50); Monocytes % 4 % (2-9); Neutrophils % 84 % (42-76); Platelet Estimate Normal; Total Cells Counted 100
[2021-07-10 10:52] LABS: Macrocytosis 1+
--- NOTE | 2021-07-10 11:02 | PC.NURSE ---
J LUIS MCCARTHY spoke with Dr. Dale is site acquisition manager for Dr. Moseley for admission
--- NOTE | 2021-07-10 11:04 | PC.NURSE ---
notified house mover of admission
--- NOTE | 2021-07-10 11:14 | PC.NURSE ---
RT at BS
--- NOTE | 2021-07-10 11:25 | PC.NURSE ---
1104 bed assignment requested room 204, all staff notified
[2021-07-10 11:35] LABS: ABG Base Excess 4.7 mmol/L (-2.4-2.3); ABG HCO3 26.2 mmhg (22.0-26.0); ABG Oxygen Saturation 86 % (90-100); ABG PCO2 26.9 mmhg (35.0-45.0)
[2021-07-10 11:47] LABS: Allen's Test Acceptable; Oxygen 6L NC %; Source Left Radial
[2021-07-10 11:48] LABS: ABG PH 7.61 mmol/L (7.35-7.45); ABG PO2 44.3 mmhg (80-100)
--- NOTE | 2021-07-10 11:50 | PC.NURSE ---
RT called with abg results results relayed to ER requesting RT place pt on vapotherm
--- NOTE | 2021-07-10 11:58 | PC.NURSE ---
RT at BS placing pt on vapotherm per ER request
--- NOTE | 2021-07-10 12:02 | PC.NURSE ---
pt on vaportherm at 30L and 70% SaO2 98% at this time notified ER MD and warehouseman of vapotherm settings.
--- NOTE | 2021-07-10 12:35 | PC.NURSE ---
attempted to call report to second floor, staff states receiving nurse in d/c another pt and will call back.
--- NOTE | 2021-07-10 13:00 | PC.NURSE ---
report called home ramirez on second floor, states she will send staff down to transport pt.
--- NOTE | 2021-07-10 16:06 | P.CONPHA_ITS ---
[facility] VTE Monitoring - Patient Demographics Admission date: 07/10/21 Report Date: 07/10/21 Time: 16:06 Allergies/Adverse Reactions: Patient Allergies No Known Allergies Allergy (Verified 02/01/21 13:36) Height: 1.8 m Weight: 77.111 kg Patient Problems: Current Active Problems COPD (chronic obstructive pulmonary disease) (Acute) COVID-19 (Acute) Hypoxia (Acute) Transaminitis (Acute) - VTE Risk Labs: VTE Related Lab Results Hgb 14.5 g/dL (14.1-18.0) 07/10/21 10:15 Hct 42.9 % (42.0-52.0) 07/10/21 10:15 Plt Count 259 K/mm3 (142-424) 07/10/21 10:15 BUN 17 mg/dl (9-20) 07/10/21 10:15 Creatinine 0.90 mg/dl (0.66-1.25) 07/10/21 10:15 Estimated Creat Clear 108 mL/min (50-200) 07/10/21 10:15 VTE Score: 5 VTE Risk Level: Low Risk - Prophylaxis VTE Prophylaxis Ordered?: Yes Types of VTE Prophylaxis: TEDS Knee High, Pharmacological Location of Applied Device: Bilateral Lower Extremeties Pharmacologic Type: Enoxaparin
[2021-07-11] VITALS (7 sets, daily range): BP systolic 112–140; BP diastolic 68–87; PULSE 68–74; RESP 18; TEMP 36.7–36.9; O2SAT 91–97
--- NOTE | 2021-07-11 05:16 | PC.NURSE ---
pt is AxOx4, has rested some t/o shift, vapotherm was increased this shift to 40L, 85%, sats 90-93%, has not complained of SOA or pain, states that he has tried to lay prone some
--- NOTE | 2021-07-11 07:16 | HMH.HP ---
*Admission Date: 07/10/21 *Chief complaint: Shortness of breath *History of present illness: 61-year-old male presented to the emergency department with dyspnea on exertion. Patient had a positive Covid test on July 04 and reports his initial symptoms began on July 01. Patient had been seen as an outpatient and prescribed azithromycin and steroids. He has underlying COPD and is already using both controller inhalers and rescue inhalers. Yesterday morning he became so short of breath with exertion he had difficulty fixing his breakfast. Patient came to the emergency department and was found to be hypoxic with O2 sat in the 70s on room air. Patient's work-up with consistent with viral pneumonia from COVID-19 with acute respiratory failure. Patient initially was able to sat in the low 90s on 6 L but had to be transitioned to high flow nasal cannula in the emergency department. Patient has been admitted and placed on dexamethasone, Remdesivir, nutritional supplements. This morning the patient reports feeling better and denies dyspnea with the high flow nasal cannula. [facility] History I have reviewed the patient's past medical history: Yes Medical History: Reports:: Chronic Obstructive Pulmonary Disease (COPD), Hyperlipidemia, Hypertension Denies:: Cancer, Diabetes Mellitus Type 1, Diabetes Mellitus Type 2, MRSA *Have you ever received a pneumonia vaccine?: Yes *Have you received a flu vaccine this season?: Yes Other Medical History: Reports: Cataracts, Sinus Problems, Other (Fungal infection of right lower lobe of lung, osteomyelitis of right should) Amputation: No - *Social History Smoking Status: Former smoker #Yrs smoked (if former smoker): 35 Alcohol Intake: never *Occupational Status:: disabled *Travel in the last 8 weeks: None Family Hx:: Cancer, Diabetes, Heart Attack Review of Systems - Constitutional Reports fatigue, Denies anorexia, Denies body ache(s), Denies chills - Eyes Denies blurry vision - ENT Denies bleeding gums, Denies dizziness - *Cardiovascular Denies chest pain at rest - *Respiratory Reports chest congestion, Reports cough, Reports shortness of breath, Reports shortness of breath with activity, Denies change in phlegm color, Denies coughing up blood - *Gastrointestinal Denies abdominal pain, Denies belching - *Genitourinary Denies difficulty urinating - *Musculoskeletal Denies joint pain, Denies joint swelling - Integumentary/Breasts Denies bleeding lesions, Denies changing lesions - *Neurologic Denies abnormal hearing Meds Home Medications Medication Instructions Recorded Confirmed Type Montelukast Sodium [Montelukast 10 mg PO HS 09/15/18 07/10/21 History 10mg Tab] hydrOXYzine pamoate [Hydroxyzine 25 mg PO DAILYP PRN 09/15/18 07/10/21 History Pamoate] ibuprofen 800 mg tablet 800 mg PO Q8H 06/10/20 07/10/21 History albuterol sulfate 90 mcg/actuation 1 inh INHALATION QID PRN #8.5 g 12/20/20 07/10/21 Rx aerosol inhaler duloxetine 30 mg capsule,delayed 30 mg PO DAILY 12/20/20 07/10/21 History release famotidine 20 mg tablet 20 mg PO NEEDED PRN 12/20/20 07/10/21 History losartan 50 mg-hydrochlorothiazide 1 tab PO DAILY tab 12/20/20 07/10/21 History 12.5 mg tablet azelastine 137 mcg (0.1 %) nasal 2 spray INTRANASAL BID PRN #30 ml 02/01/21 07/10/21 Rx spray aerosol ipratropium 0.5 mg-albuterol 3 mg 3 ml INHALATION QID PRN #90 ml 02/01/21 07/10/21 Rx (2.5 mg base)/3 mL nebulization soln Budesonide/Formoterol Fumarate 2 puff INHALATION BID 07/10/21 07/10/21 History [Budesonide-Formoterol 160-4.5] Glucosa Garza 2Kcl/Chondroitin Garza 1 each PO DAILY 07/10/21 07/10/21 History [Glucosamine & Chondroitin Cap] [place]-3 Fatty Acids/Fish Oil [Fish 1 each PO DAILY 07/10/21 07/10/21 History Oil 1,000 mg Capsule] Tiotropium [place] [Spiriva with 1 cap INHALATION DAILY 07/10/21 07/10/21 History HandiHaler] Allergies Allergy/AdvReac Type Severity
[2021-07-11 07:55] LABS: Basophils # 0.1 K/mm3 (0-0.2); Basophils % 0.9 % (0.1-2.0); Eosinophils % 0.1 % (0.1-12.0); Hematocrit 40.8 % (42.0-52.0); Hemoglobin 13.9 g/dL (14.1-18.0); Mean Corpuscular Hemoglobin 32.3 pg (27.0-31.2); Mean Corpuscular Volume 95.1 fl (80-94); Mean Platelet Volume 7.5 fl (7.4-10.4); Monocytes # 0.4 K/mm3 (0.1-1.0); Monocytes % 4.9 % (1.7-9.3); Neutrophils # 7.3 K/mm3 (1.8-7.8); Neutrophils % 83.1 % (37.0-80.0); Platelet Count 291 K/mm3 (142-424); Red Blood Count 4.29 M/mm3 (4.60-6.20); Red Cell Distribution Width 12.2 % (11.5-17.5); White Blood Count 8.7 K/mm3 (4.8-10.8)
[2021-07-11 08:05] LABS: Alanine Aminotransferase 132 U/L (12-78); Albumin Level 3.2 g/dl (3.5-5.0); Albumin/Globulin Ratio 1.1 (1.1-1.8); Alkaline Phosphatase 73 U/L (38-126); Anion Gap 9.2 mEq/L (5-15); Aspartate Amino Transferase 110 U/L (17-59); Bilirubin,Total 0.5 mg/dl (0.2-1.3); Blood Urea Nitrogen 18 mg/dl (9-20); Calcium 8.6 mg/dl (8.4-10.2); Carbon Dioxide 33 mmol/L (22.0-30.0); Chloride 94 mmol/L (98-107); Creatinine Clearance Estimated 108 mL/min (50-200); Estimated Glomerular Filt Rate 99 ml/min (>60); GFR (African American) 120 ML/MIN (>60); Globulin 2.9 g/dL (1.3-3.2); Glucose 149 mg/dl (74-100); Potassium 4.2 mmoL/L (3.5-5.1); Sodium 132 mmol/L (136-145); Total Protein,Serum 6.1 g/dl (6.3-8.2)
[2021-07-11 08:10] LABS: C-Reactive Protein 97.6 mg/L (0-4)
--- NOTE | 2021-07-11 09:50 | PC.NURSE ---
Sputum sample sent to lab.
--- NOTE | 2021-07-11 10:50 | HMH.PULMCON ---
*Admission Date: 07/10/21 *Reason for consult:: Acute hypoxic respiratory failure, COVID-19 pneumonia *History of present illness: Mr. Munroe is a 61-year-old female greater than 51-oeax-admp smoking history prior smoker patient in pulmonary clinic following for asthma COPD overlap syndrome and right lower lobe pulmonary nodule status post biopsy negative for malignancy and fungal infection admitted to the hospital worsening respiratory and found to be COVID-19 positive And hypoxic respiratory failure needing high flow oxygen requirements and pulmonary was called for further management. [facility] History Medical History: Reports:: Chronic Obstructive Pulmonary Disease (COPD), Hyperlipidemia, Hypertension Denies:: Cancer, Diabetes Mellitus Type 1, Diabetes Mellitus Type 2, MRSA *Have you ever received a pneumonia vaccine?: Yes *Have you received a flu vaccine this season?: Yes Other Medical History: Reports: Cataracts, Sinus Problems, Other (Fungal infection of right lower lobe of lung, osteomyelitis of right should) Amputation: No - *Social History Smoking Status: Former smoker #Yrs smoked (if former smoker): 35 Alcohol Intake: never *Occupational Status:: disabled *Travel in the last 8 weeks: None Family Hx:: Cancer, Diabetes, Heart Attack ROS - Cons Reports anorexia, Reports body ache(s) - ENT Denies abnormal hearing, Denies bleeding gums - Card Reports shortness of breath, Reports shortness of breath with activity - Resp Respiratory: Reports shortness of breath, Reports chest congestion, Reports cough, Reports dyspnea on exertion - GI Gastrointestingal: Denies: abdominal pain - Psych Reports abnormal sleep pattern Meds Home Medications Medication Instructions Recorded Confirmed Type Montelukast Sodium [Montelukast 10 mg PO HS 09/15/18 07/10/21 History 10mg Tab] hydrOXYzine pamoate [Hydroxyzine 25 mg PO DAILYP PRN 09/15/18 07/10/21 History Pamoate] ibuprofen 800 mg tablet 800 mg PO TIDP PRN 06/10/20 07/11/21 History albuterol sulfate 90 mcg/actuation 1 inh INHALATION QID PRN #8.5 g 12/20/20 07/10/21 Rx aerosol inhaler duloxetine 30 mg capsule,delayed 30 mg PO DAILY 12/20/20 07/10/21 History release famotidine 20 mg tablet 20 mg PO DAILYP PRN 12/20/20 07/11/21 History losartan 50 mg-hydrochlorothiazide 1 tab PO DAILY tab 12/20/20 07/10/21 History 12.5 mg tablet ipratropium 0.5 mg-albuterol 3 mg 3 ml INHALATION QID PRN #90 ml 02/01/21 07/10/21 Rx (2.5 mg base)/3 mL nebulization soln Budesonide/Formoterol Fumarate 2 puff IH BID 07/10/21 07/11/21 History [Budesonide-Formoterol 160-4.5] Glucosa Garza 2Kcl/Chondroitin Garza 1 each PO DAILY 07/10/21 07/10/21 History [Glucosamine & Chondroitin Cap] [place]-3 Fatty Acids/Fish Oil [Fish 1 each PO DAILY 07/10/21 07/10/21 History Oil 1,000 mg Capsule] Tiotropium [place] [Spiriva with 1 cap IH DAILY 07/10/21 07/11/21 History HandiHaler] Allergies Allergy/AdvReac Type Severity Reaction Status Date / Time No Known Allergies Allergy Verified 02/01/21 13:36 Exam - Constitutional Constitutional:: Present: comfortable. Absent: no acute distress - HENMT Exam HENMT: Present: normocephalic, atraumatic - Eye Exam Eyes:: Present: normal appearance both eyes and related structures - Neck Exam Neck:: Present: normal visual inspection - Respiratory Exam Respiratory:: Present: able to speak in complete sentences, respiratory distress, crackles - Cardiovascular Exam Cardiac:: Present: S1, S2 - GI Exam GI:: Present: soft, no tenderness - Skin Exam Skin: Present: warm, no rash - Neurological Exam Neurological: Present: alert, awake, normal cognition - Extremities Exam Extremities: Present: no cyanosis, no clubbing, no edema Internal Medicine - CN: Reslt - Labs CBC & Chem 7: 07/11/21 06:50 07/11/21 06:50 Labs: Short CBC 07/11/21 Range/Units 06:50 WBC 8.7 (4.8-10.8) K/mm3 Hgb 13.9 L (14.1-18.0) g/dL
--- NOTE | 2021-07-11 10:54 | CA_ITS ---
APPROVED REPORT Bilateral Lower Extremity Venous Study for DVT. [employer] Laborer: LANA Indications Hypoxia Vein Imaging CFV (R): compressive, spontaneous, phasic, augmentation SFJ (R): compressive, spontaneous, phasic, augmentation FEM (R): compressive, spontaneous, phasic, augmentation POP (R): compressive, spontaneous, phasic, augmentation DFV (R): compressive, spontaneous, phasic, augmentation PTV (R): compressive, spontaneous, phasic, augmentation GSV (R): compressive, spontaneous, phasic, augmentation SSV (R): compressive, spontaneous, phasic, augmentation Peroneals (R):compressive, spontaneous, phasic, augmentation GAS (R): compressive, spontaneous, phasic, augmentation CFV (L): compressive, spontaneous, phasic, augmentation SFJ (L): compressive, spontaneous, phasic, augmentation FEM (L): compressive, spontaneous, phasic, augmentation POP (L): compressive, spontaneous, phasic, augmentation DFV (L): compressive, spontaneous, phasic, augmentation PTV (L): compressive, spontaneous, phasic, augmentation GSV (L): compressive, spontaneous, phasic, augmentation SSV (L): compressive, spontaneous, phasic, augmentation Peroneals (L):compressive, spontaneous, phasic, augmentation GAS (L): compressive, spontaneous, phasic, augmentation Findings Color flow duplex demonstrates no evidence of DVT of the following bilateral lower extremity Veins:Common Femoral Vein, Femoral Vein, Popliteal Vein, Posterior Tibial Veins, Peroneal Veins, Deep Femoral Vein. Negative for DVT at this time. Conclusion Negative for DVT at this time. Electronically signed by : Onur Meade MD 07/11/2021 16:28:45
--- NOTE | 2021-07-11 10:54 | HMH.PHAINT ---
MEDICATION RECONCILIATION COMPLETED ON PATIENT USING EXTERNAL FILL HISTORY FROM PHARMACY. -JARROD VICTOR, OSVALDOD
[2021-07-11 12:08] LABS: D-Dimer 0.85 ug/mL (0.0-0.5)
[2021-07-11 14:15] LABS: Ferritin 1790 ng/ml (17.9-464)
--- NOTE | 2021-07-11 19:43 | PC.NURSE ---
aox4, no acute changes this shift, vapotherm remains in place.
[2021-07-12] VITALS (7 sets, daily range): BP systolic 105–130; BP diastolic 67–75; PULSE 64–92; RESP 17–22; TEMP 36.8–37; O2SAT 87–98; BMI 25.7
--- NOTE | 2021-07-12 03:35 | PC.NURSE ---
No acute changes t/o shift. Pt remains on vapotherm 40L/min 85%. Pt has tolerated well and O2 stat have remained >90%. Pt denies pain. Pt uses the urinal to void independently. VSS, call light within reach will continue to monitor.
[2021-07-12 07:05] LABS: Basophils # 0.1 K/mm3 (0-0.2); Eosinophils % 0.2 % (0.1-12.0); Hematocrit 38.8 % (42.0-52.0); Hemoglobin 13.3 g/dL (14.1-18.0); Lymphocytes # 2.1 K/mm3 (0.7-4.5); Mean Corpuscular HGB Conc 34.4 g/dL (31.8-35.4); Mean Corpuscular Hemoglobin 32.5 pg (27.0-31.2); Mean Corpuscular Volume 94.5 fl (80-94); Mean Platelet Volume 8.4 fl (7.4-10.4); Monocytes # 0.3 K/mm3 (0.1-1.0); Monocytes % 2.7 % (1.7-9.3); Neutrophils # 9.7 K/mm3 (1.8-7.8); Neutrophils % 79.2 % (37.0-80.0); Platelet Count 357 K/mm3 (142-424); Red Cell Distribution Width 12.9 % (11.5-17.5); White Blood Count 12.2 K/mm3 (4.8-10.8)
[2021-07-12 07:07] LABS: Alanine Aminotransferase 95 U/L (12-78); Albumin/Globulin Ratio 1.1 (1.1-1.8); Alkaline Phosphatase 72 U/L (38-126); Anion Gap 10.2 mEq/L (5-15); Aspartate Amino Transferase 72 U/L (17-59); Bilirubin,Total 0.5 mg/dl (0.2-1.3); Blood Urea Nitrogen 21 mg/dl (9-20); Calcium 8.5 mg/dl (8.4-10.2); Carbon Dioxide 32 mmol/L (22.0-30.0); Chloride 96 mmol/L (98-107); Creatinine Clearance Estimated 104 mL/min (50-200); Estimated Glomerular Filt Rate 86 ml/min (>60); GFR (African American) 105 ML/MIN (>60); Globulin 2.8 g/dL (1.3-3.2); Glucose 94 mg/dl (74-100); Potassium 4.2 mmoL/L (3.5-5.1); Sodium 134 mmol/L (136-145); Total Protein,Serum 5.8 g/dl (6.3-8.2)
--- NOTE | 2021-07-12 07:24 | HMH.ACPN2 ---
Internal Medicine - PN: Subj *Date: 07/12/21 *Time: 07:24 Interval history: Patient has no complaints this morning. No acute events over the last 24 hours. He does note his cough seems to have increased Exam Vital signs and Labs for Last 24 Hours: Temp Pulse Resp BP Pulse Ox 98.2 F 72 17 125/68 96 07/12/21 04:00 07/12/21 04:00 07/12/21 04:00 07/12/21 04:00 07/12/21 06:11 Laboratory Results - last 24 hr 07/11/21 06:50: WBC 8.7, RBC 4.29 L, Hgb 13.9 L, Hct 40.8 L, MCV 95.1 H, MCH 32.3 H, MCHC 34.0, RDW 12.2, Plt Count 291, MPV 7.5, Neut % (Auto) 83.1 H, Lymph % (Auto) 11.0, [place] % (Auto) 4.9, Eos % (Auto) 0.1, Baso % (Auto) 0.9, Neut # (Auto) 7.3, Lymph # (Auto) 1.0, [place] # (Auto) 0.4, Eos # (Auto) 0.0, Baso # (Auto) 0.1 07/11/21 06:50: Sodium 132 L, Potassium 4.2 D, Chloride 94 L, Carbon Dioxide 33 H, Anion Gap 9.2, BUN 18, Creatinine 0.80, Estimated Creat Clear 108, Estimated GFR 99, Est GFR ( Amer) 120, Glucose 149 H, Calcium 8.6, Total Bilirubin 0.5, AST 110 H D, ALT 132 H D, Alkaline Phosphatase 73, C-Reactive Protein 97.6 H, Total Protein 6.1 L, Albumin 3.2 L D, Globulin 2.9, Albumin/Globulin Ratio 1.1 07/11/21 11:19: D-Dimer 0.85 H 07/11/21 11:19: Ferritin 1790 H 07/12/21 06:38: WBC 12.2 H D, RBC 4.10 L, Hgb 13.3 L, Hct 38.8 L, MCV 94.5 H, MCH 32.5 H, MCHC 34.4, RDW 12.9, Plt Count 357, MPV 8.4, Neut % (Auto) 79.2, Lymph % (Auto) 17.0, [place] % (Auto) 2.7, Eos % (Auto) 0.2, Baso % (Auto) 1.0, Neut # (Auto) 9.7 H, Lymph # (Auto) 2.1, [place] # (Auto) 0.3, Eos # (Auto) 0.0, Baso # (Auto) 0.1 07/12/21 06:38: Sodium 134 L, Potassium 4.2, Chloride 96 L, Carbon Dioxide 32 H, Anion Gap 10.2, BUN 21 H, Creatinine 0.90, Estimated Creat Clear 104, Estimated GFR 86, Est GFR ( Amer) 105, Glucose 94 D, Calcium 8.5, Total Bilirubin 0.5, AST 72 H D, ALT 95 H D, Alkaline Phosphatase 72, Total Protein 5.8 L, Albumin 3.0 L, Globulin 2.8, Albumin/Globulin Ratio 1.1 I & O for Last 24 hours: Intake & Output 07/09/21 07/10/21 07/11/21 07/12/21 11:59 11:59 11:59 11:59 Intake Total 720 / 720 600 / 600 Output Total 1050 / 1050 1550 / 1550 Balance -330 / -330 -950 / -950 Weight 190 lb 170 lb 184 lb Microbiology Reports for the Last 24 Hours: Microbiology 07/11/21 09:40 Sputum - Expectorated Sputum Gram Stain - Final - Constitutional no acute distress - *Routine Respiratory Exam Present: rales (Bilateral) - *Routine Cardiovascular Exam Present: RRR Assessment and Plan (1) Acute respiratory failure Status: Acute Category: Medical Code(s): J96.00 - Acute respiratory failure, unspecified whether with hypoxia or hypercapnia (2) Viral pneumonia Status: Acute Category: Medical Code(s): J12.9 - Viral pneumonia, unspecified (3) Severe chronic obstructive pulmonary disease Status: Acute Category: Medical Code(s): J44.9 - Chronic obstructive pulmonary disease, unspecified (4) COVID-19 Status: Acute Category: Medical Code(s): U07.1 - COVID-19 (5) Transaminitis Status: Acute Category: Medical Code(s): R74.01 - Elevation of levels of liver transaminase levels - Assessment and plan all Dx Assessment and Plan for all problems:: 1. Continue Remdesivir, dexamethasone, nutritional supplementation for COVID-19 viral pneumonia 2. Continue Vapotherm. Wean to keep sats greater than 90%
--- NOTE | 2021-07-12 09:26 | HMH.PULMPN ---
Internal Medicine - PN: Subj *Date: 07/12/21 *Time: 11:42 Interval history: No acute respiratory events overnight. Continue to remain on high flow. Much improvement in his symptoms. Exam - Constitutional Constitutional:: Present: no acute distress, comfortable - HENMT Exam HENMT: Present: normocephalic, atraumatic - Eye Exam Eyes:: Present: normal appearance both eyes and related structures - Neck Exam Neck:: Present: normal visual inspection - Respiratory Exam Respiratory:: Present: able to speak in complete sentences, respiratory distress. Absent: crackles, wheezing - Cardiovascular Exam Cardiac:: Present: S1, S2 - GI Exam GI:: Present: soft - Skin Exam Skin: Present: warm, no rash - Neurological Exam Neurological: Present: alert, awake, normal cognition - Extremities Exam Extremities: Present: no cyanosis, no clubbing, no edema Assessment and Plan (1) Acute respiratory failure Status: Acute Category: Medical Code(s): J96.00 - Acute respiratory failure, unspecified whether with hypoxia or hypercapnia (2) Viral pneumonia Status: Acute Category: Medical Code(s): J12.9 - Viral pneumonia, unspecified (3) Severe chronic obstructive pulmonary disease Status: Acute Category: Medical Code(s): J44.9 - Chronic obstructive pulmonary disease, unspecified (4) COVID-19 Status: Acute Category: Medical Code(s): U07.1 - COVID-19 (5) Transaminitis Status: Acute Category: Medical Code(s): R74.01 - Elevation of levels of liver transaminase levels - Assessment and plan all Dx Assessment and Plan for all problems:: #Acute hypoxic respiratory failure: #COVID-19 pneumonia: 61-year-old prior smoker following in pulmonary clinic for asthma COPD overlap syndrome with symptoms started on July 01 with a positive COVID-19 PCR testing on July 04 present with progressively worsening respiratory distress. CRP elevated at 97.6 ferritin elevated at 1790. D-dimer at 0.84. Chest x-ray admission showed bilateral pulmonary lower lobe patchy airspace disease with no effusion. Lower extremity Doppler negative for DVT. No CTA performed. We will closely monitor. Overall this patient's respiratory status continued to improve with decreasing oxygen requirements. We will continue current therapy and will closely monitor. Plan: -Collect Nasal MRSA PCR -Continue high flow nasal cannula and supplementation to maintain O2 saturation goal of 88 to 92%, respiratory status improved from yesterday. Oxygen equipments weaned to 35 L 65%. Will wean aggressively as tolerated. --Ceftriaxone azithromycin for community-acquired pneumonia. Follow with blood and sputum cultures, sputum mixed anupama with gram-negative rods gram-positive cocci in pairs and clusters. Blood cultures pending. -Continue Advair 250 and Spiriva inhalers along with DuoNebs every 6 hours as needed -Remdesivir abd dexamethasone r COVID-19 pneumonia. Transaminases improving .Initiate Barcitinib
[2021-07-13] VITALS (10 sets, daily range): BP systolic 119–132; BP diastolic 72–85; PULSE 65–81; RESP 18–21; TEMP 36.5–36.9; O2SAT 86–94; BMI 25.4
--- NOTE | 2021-07-13 03:57 | PC.NURSE ---
No acute changes, VSS, will continue to monitor. Patient remains on Vapotherm at 35L/65%
--- NOTE | 2021-07-13 07:12 | P.PN_ITS ---
Internal Medicine - PN: Subj *Date: 07/13/21 *Time: 07:12 Interval history: No acute events. HFNC had been weaned during the day but overnight patient sats dropped down to 84% and FiO2 was increased back to 80%. Patient states he is feeling well. He has been laying prone early this morning. Exam Vital signs and Labs for Last 24 Hours: Temp Pulse Resp BP Pulse Ox 98.0 F 65 20 132/78 94 L 07/13/21 04:00 07/13/21 04:00 07/13/21 04:00 07/13/21 04:00 07/13/21 06:39 Laboratory Results - last 24 hr 07/12/21 06:38: Sodium 134 L, Potassium 4.2, Chloride 96 L, Carbon Dioxide 32 H, Anion Gap 10.2, BUN 21 H, Creatinine 0.90, Estimated Creat Clear 104, Estimated GFR 86, Est GFR ( Amer) 105, Glucose 94 D, Calcium 8.5, Total Bilirubin 0.5, AST 72 H D, ALT 95 H D, Alkaline Phosphatase 72, Total Protein 5.8 L, Albumin 3.0 L, Globulin 2.8, Albumin/Globulin Ratio 1.1 I & O for Last 24 hours: Intake & Output 07/10/21 07/11/21 07/12/21 07/13/21 11:59 11:59 11:59 11:59 Intake Total 720 / 720 840 / 840 360 / 360 Output Total 1050 / 1050 1550 / 1550 1500 / 1500 Balance -330 / -330 -710 / -710 -1140 / -1140 Weight 190 lb 170 lb 184 lb 181 lb 9 oz Microbiology Reports for the Last 24 Hours: Microbiology 07/11/21 09:40 Sputum - Expectorated Sputum Gram Stain - Final 07/11/21 09:40 Sputum - Expectorated Sputum Sputum Culture - Preliminary 07/10/21 10:15 Blood Blood Culture - Preliminary NO GROWTH AFTER 48 HOURS 07/10/21 10:15 Blood Blood Culture - Preliminary NO GROWTH AFTER 48 HOURS Narrative: Patient looks comfortable and shows no increased work of breathing or re spiratory distress. Lungs have some faint rhonchi but good aeration. Heart has a regular rate and rhythm. Extremities have no edema Assessment and Plan (1) Acute respiratory failure Status: Acute Category: Medical Code(s): J96.00 - Acute respiratory failure, unspecified whether with hypoxia or hypercapnia (2) Viral pneumonia Status: Acute Category: Medical Code(s): J12.9 - Viral pneumonia, unsp ecified (3) Severe chronic obstructive pulmonary disease Status: Acute Category: Medical Code(s): J44.9 - Chronic obstructive pulmonary disease, unspecified (4) COVID-19 Status: Acute Category: Medical Code(s): U07.1 - COVID-19 (5) Transaminitis Status: Acute Category: Medical Code(s): R74.01 - Elevation of levels of liver transaminase levels - Assessment and plan all Dx Assessment and Plan for all problems:: 1. Continue Remdesivir and dexamethasone 2. Continue HFNC with goal to wean to keep O2 sats above 90% 3. Patient to continue prone breathing as tolerated
--- NOTE | 2021-07-13 07:17 | PC.NURSE ---
Assignment was taken under duress at 7pm. Roma Melgoza RN manager was aware.
[2021-07-13 08:14] LABS: Basophils # 0.1 K/mm3 (0-0.2); Basophils % 0.7 % (0.1-2.0); Eosinophils % 0.2 % (0.1-12.0); Hematocrit 39.2 % (42.0-52.0); Hemoglobin 13.2 g/dL (14.1-18.0); Lymphocytes # 1.4 K/mm3 (0.7-4.5); Lymphocytes % 9.9 % (10-50); Mean Corpuscular HGB Conc 33.7 g/dL (31.8-35.4); Mean Corpuscular Volume 94.8 fl (80-94); Mean Platelet Volume 8.4 fl (7.4-10.4); Monocytes # 0.3 K/mm3 (0.1-1.0); Monocytes % 2.3 % (1.7-9.3); Neutrophils # 12.1 K/mm3 (1.8-7.8); Neutrophils % 86.9 % (37.0-80.0); Platelet Count 383 K/mm3 (142-424); Red Blood Count 4.14 M/mm3 (4.60-6.20); Red Cell Distribution Width 12.8 % (11.5-17.5)
[2021-07-13 08:24] LABS: MANUAL DIFFERENTIAL MANUAL DIFFERENTIAL (MANUAL DIFF)
[2021-07-13 08:37] LABS: Alanine Aminotransferase 82 U/L (12-78); Albumin Level 3.2 g/dl (3.5-5.0); Albumin/Globulin Ratio 1.1 (1.1-1.8); Alkaline Phosphatase 74 U/L (38-126); Anion Gap 11.6 mEq/L (5-15); Aspartate Amino Transferase 52 U/L (17-59); Bilirubin,Total 0.6 mg/dl (0.2-1.3); Blood Urea Nitrogen 20 mg/dl (9-20); Calcium 8.4 mg/dl (8.4-10.2); Carbon Dioxide 30 mmol/L (22.0-30.0); Chloride 94 mmol/L (98-107); Creatinine Clearance Estimated 116 mL/min (50-200); Estimated Glomerular Filt Rate 99 ml/min (>60); GFR (African American) 120 ML/MIN (>60); Globulin 2.9 g/dL (1.3-3.2); Glucose 134 mg/dl (74-100); Potassium 3.6 mmoL/L (3.5-5.1); Sodium 132 mmol/L (136-145); Total Protein,Serum 6.1 g/dl (6.3-8.2)
[2021-07-13 08:55] LABS: Lymphocytes % 6 % (10-50); Monocytes % 6 % (2-9); Neutrophils % 88 % (42-76); Nucleated Red Blood Cells 2; Total Cells Counted 100
[2021-07-13 08:56] LABS: Hypochromasia 3+; Platelet Estimate Normal
--- NOTE | 2021-07-13 09:20 | P.PN_ITS ---
Internal Medicine - PN: Subj *Date: 07/13/21 *Time: 13:13 Interval history: No acute respiratory vents overnight. Exam - Constitutional Constitutional:: Present: no acute distress, comfortable - HENMT Exam HENMT: Present: normocephalic, atraumatic - Eye Exam Eyes:: Present: normal appearance both eyes and related structures - Neck Exam Neck:: Present: normal visual inspection - Respiratory Exam Respiratory:: Present: able to speak in complete sentences, respiratory dis tress, rales. Absent: wheezing - Cardiovascular Exam Cardiac:: Present: S1, S2 - GI Exam GI:: Present: soft - Skin Exam Skin: Present: warm, no rash, dry - Neurological Exam Neurological: Present: alert, normal cognition - Extremities Exam Extremities: Present: no cyanosis, no clubbing, no edema Assessment and Plan (1) Acute respiratory failure Status: Acute Category: Medical Code(s): J96.00 - Acute respiratory failure, unspecified whether with hypoxia or hypercapnia (2) Viral pneumonia Status: Acute Category: Medical Code(s): J12.9 - Viral pneumonia, unspecified (3) Severe chronic obstructive pulmonary disease Status: Acute Category: Medical Code(s): J44.9 - Chronic obstructive pulmonary disease, unspecified (4) COVID-19 Status: Acute Category: Medical Code(s): U07.1 - COVID-19 (5) Transaminitis Status: Acute Category: Medical Code(s): R74.01 - Elevation of levels of liver transaminase levels - Assessment and plan all Dx Assessment and Plan for all problems:: #Acute hypoxic respiratory failure: #COVID-19 pneumonia: 61-year-old prior smoker following in pulmonary clinic for asthma COPD overlap syndrome with symptoms started on July 01 with a positive COVID-19 PCR testing on July 04 present with progressively worsening respiratory distress. CRP elevated at 97.6 ferritin elevated at 1790. D-dimer at 0.84. Chest x-ray admission showed bilateral pulmonary lower lobe patchy airspace disease with no effusion. Lower extremity Doppler negative for DVT. No CTA performed. We will closely monitor. Patient respiratory status remained stable since yesterday. He this morning and 35 L 65% saturating 90 to 91% while supine. Plan: -Continue awake proning protocol -Collect Nasal MRSA PCR -Continue high flow nasal cannula and supplementation to maintain O2 saturation goal of 88 to 92%-currently on 35 L 60%. Wean as tolerated. --Ceftriaxone azithromycin for community-acquired pneumonia. Follow with blood and sputum cultures, sputum mixed anupama with gram-negative rods gram-positive cocci in pairs and clusters. Blood cultures pending. -Continue Advair 250 and Spiriva inhalers along with DuoNebs every 6 hours as needed -Remdesivir abd dexamethasone r COVID-19 pneumonia. Transaminases improving. Continue baricitinib
--- NOTE | 2021-07-13 11:56 | HMH.ACPN2 ---
Internal Medicine - PN: Subj *Date: 07/13/21 *Time: 11:56 Exam Vital signs and Labs for Last 24 Hours: Temp Pulse Resp BP Pulse Ox 98.3 F 79 18 127/85 91 L 07/13/21 10:50 07/13/21 11:30 07/13/21 10:50 07/13/21 10:50 07/13/21 10:50 Laboratory Results - last 24 hr 07/13/21 07:44: WBC 14.0 H, RBC 4.14 L, Hgb 13.2 L, Hct 39.2 L, MCV 94.8 H, MCH 32.0 H, MCHC 33.7, RDW 12.8, Plt Count 383, MPV 8.4, Neut % (Auto) 86.9 H, Lymph % (Auto) 9.9 L, [place] % (Auto) 2.3, Eos % (Auto) 0.2, Baso % (Auto) 0.7, Neut # (Auto) 12.1 H, Lymph # (Auto) 1.4, [place] # (Auto) 0.3, Eos # (Auto) 0.0, Baso # (Auto) 0.1, Total Counted 100, Neutrophils % (Manual) 88 H, Lymphocytes % (Manual) 6 L, Monocytes % (Manual) 6, Nucleated RBCs 2, Platelet Estimate Normal, Hypochromasia 3+ 07/13/21 07:44: Sodium 132 L, Potassium 3.6, Chloride 94 L, Carbon Dioxide 30, Anion Gap 11.6, BUN 20, Creatinine 0.80, Estimated Creat Clear 116, Estimated GFR 99, Est GFR ( Amer) 120, Glucose 134 H, Calcium 8.4, Total Bilirubin 0.6, AST 52 D, ALT 82 H, Alkaline Phosphatase 74, Total Protein 6.1 L, Albumin 3.2 L, Globulin 2.9, Albumin/Globulin Ratio 1.1 I & O for Last 24 hours: Intake & Output 07/10/21 07/11/21 07/12/21 07/13/21 23:59 23:59 23:59 23:59 Intake Total 480 / 480 840 / 840 600 / 600 240 / 240 Output Total 800 / 1050 1000 / 1800 2300 / 2300 Balance -320 / -570 -160 / -960 -1700 / -1700 240 / 240 Weight 77.111 kg 83.461 kg 82.355 kg Microbiology Reports for the Last 24 Hours: Microbiology 07/11/21 09:40 Sputum - Expectorated Sputum Gram Stain - Final 07/11/21 09:40 Sputum - Expectorated Sputum Sputum Culture - Preliminary 07/10/21 10:15 Blood Blood Culture - Preliminary NO GROWTH AFTER 48 HOURS 07/10/21 10:15 Blood Blood Culture - Preliminary NO GROWTH AFTER 48 HOURS Assessment and Plan (1) Acute respiratory failure Status: Acute Category: Medical Code(s): J96.00 - Acute respiratory failure, unspecified whether with hypoxia or hypercapnia (2) Viral pneumonia Status: Acute Category: Medical Code(s): J12.9 - Viral pneumonia, unspecified (3) Severe chronic obstructive pulmonary disease Status: Acute Category: Medical Code(s): J44.9 - Chronic obstructive pulmonary disease, unspecified (4) COVID-19 Status: Acute Category: Medical Code(s): U07.1 - COVID-19 (5) Transaminitis Status: Acute Category: Medical Code(s): R74.01 - Elevation of levels of liver transaminase levels The patient's infection will respond to the chosen ABx?: Yes (CAP) Is the patient receiving the right drug, dose, and route?: Yes Could a more targeted ABx be ordered?: No
--- NOTE | 2021-07-13 19:00 | PC.NURSE ---
attempted to titrate down on fio2 for high flow nasal cannula; patient experienced decrease in spo2; titrated percentage to original amount. will continue to monitor
[2021-07-14] VITALS (8 sets, daily range): BP systolic 109–141; BP diastolic 72–86; PULSE 66–92; RESP 18–28; TEMP 36.6–37; O2SAT 90–95; BMI 25.7
--- NOTE | 2021-07-14 04:20 | PC.NURSE ---
Patient is alert and oriented x4. Patient has remained on vapotherm at 35L/80%. Patient had complaints of nerve pruritus and states that he gets it from time to time. Rhonchi noted throughout bilateral lungs. Vital signs are stable, call light within reach, will continue to monitor.
[2021-07-14 07:08] LABS: Basophils # 0.1 K/mm3 (0-0.2); Basophils % 0.5 % (0.1-2.0); Eosinophils % 0.1 % (0.1-12.0); Hematocrit 40.6 % (42.0-52.0); Hemoglobin 13.7 g/dL (14.1-18.0); Lymphocytes # 1.3 K/mm3 (0.7-4.5); Lymphocytes % 8.4 % (10-50); Mean Corpuscular HGB Conc 33.8 g/dL (31.8-35.4); Mean Corpuscular Hemoglobin 32.2 pg (27.0-31.2); Mean Corpuscular Volume 95.3 fl (80-94); Mean Platelet Volume 8.4 fl (7.4-10.4); Monocytes # 0.5 K/mm3 (0.1-1.0); Monocytes % 3.2 % (1.7-9.3); Neutrophils # 13.3 K/mm3 (1.8-7.8); Neutrophils % 87.7 % (37.0-80.0); Platelet Count 413 K/mm3 (142-424); Red Blood Count 4.26 M/mm3 (4.60-6.20); White Blood Count 15.1 K/mm3 (4.8-10.8)
[2021-07-14 07:17] LABS: Alanine Aminotransferase 97 U/L (12-78); Albumin Level 3.3 g/dl (3.5-5.0); Albumin/Globulin Ratio 1.1 (1.1-1.8); Alkaline Phosphatase 85 U/L (38-126); Anion Gap 14.8 mEq/L (5-15); Aspartate Amino Transferase 62 U/L (17-59); Bilirubin,Total 0.7 mg/dl (0.2-1.3); Blood Urea Nitrogen 17 mg/dl (9-20); Calcium 8.8 mg/dl (8.4-10.2); Carbon Dioxide 27 mmol/L (22.0-30.0); Chloride 95 mmol/L (98-107); Creatinine Clearance Estimated 117 mL/min (50-200); Estimated Glomerular Filt Rate 99 ml/min (>60); GFR (African American) 120 ML/MIN (>60); Glucose 116 mg/dl (74-100); Potassium 3.8 mmoL/L (3.5-5.1); Sodium 133 mmol/L (136-145); Total Protein,Serum 6.3 g/dl (6.3-8.2)
[2021-07-14 07:26] LABS: MANUAL DIFFERENTIAL MANUAL DIFFERENTIAL (MANUAL DIFF)
--- NOTE | 2021-07-14 07:32 | HMH.ACPN2 ---
Internal Medicine - PN: Subj *Date: 07/14/21 *Time: 07:32 Interval history: Patient had minimal change in respiratory status over the last 24 hours. He complains of bilateral sciatica causing a pruritic sensation in the thighs as well as inability to have a bowel movement since admission. Exam Vital signs and Labs for Last 24 Hours: Temp Pulse Resp BP Pulse Ox 97.9 F 66 20 111/77 93 L 07/14/21 04:00 07/14/21 06:47 07/14/21 04:00 07/14/21 04:00 07/14/21 06:47 Laboratory Results - last 24 hr 07/13/21 07:44: WBC 14.0 H, RBC 4.14 L, Hgb 13.2 L, Hct 39.2 L, MCV 94.8 H, MCH 32.0 H, MCHC 33.7, RDW 12.8, Plt Count 383, MPV 8.4, Neut % (Auto) 86.9 H, Lymph % (Auto) 9.9 L, [place] % (Auto) 2.3, Eos % (Auto) 0.2, Baso % (Auto) 0.7, Neut # (Auto) 12.1 H, Lymph # (Auto) 1.4, [place] # (Auto) 0.3, Eos # (Auto) 0.0, Baso # (Auto) 0.1, Total Counted 100, Neutrophils % (Manual) 88 H, Lymphocytes % (Manual) 6 L, Monocytes % (Manual) 6, Nucleated RBCs 2, Platelet Estimate Normal, Hypochromasia 3+ 07/13/21 07:44: Sodium 132 L, Potassium 3.6, Chloride 94 L, Carbon Dioxide 30, Anion Gap 11.6, BUN 20, Creatinine 0.80, Estimated Creat Clear 116, Estimated GFR 99, Est GFR ( Amer) 120, Glucose 134 H, Calcium 8.4, Total Bilirubin 0.6, AST 52 D, ALT 82 H, Alkaline Phosphatase 74, Total Protein 6.1 L, Albumin 3.2 L, Globulin 2.9, Albumin/Globulin Ratio 1.1 07/14/21 06:49: WBC 15.1 H, RBC 4.26 L, Hgb 13.7 L, Hct 40.6 L, MCV 95.3 H, MCH 32.2 H, MCHC 33.8, RDW 13.0, Plt Count 413, MPV 8.4, Neut % (Auto) 87.7 H, Lymph % (Auto) 8.4 L, [place] % (Auto) 3.2, Eos % (Auto) 0.1, Baso % (Auto) 0.5, Neut # (Auto) 13.3 H, Lymph # (Auto) 1.3, [place] # (Auto) 0.5, Eos # (Auto) 0.0, Baso # (Auto) 0.1 I & O for Last 24 hours: Intake & Output 07/11/21 07/12/21 07/13/21 07/14/21 11:59 11:59 11:59 11:59 Intake Total 720 / 720 840 / 840 600 / 600 600 / 600 Output Total 1050 / 1050 1550 / 1550 1500 / 1500 1850 / 1850 Balance -330 / -330 -710 / -710 -900 / -900 -1250 / -1250 Weight 170 lb 184 lb 181 lb 9 oz 183 lb 8 oz Microbiology Reports for the Last 24 Hours: Microbiology 07/11/21 09:40 Sputum - Expectorated Sputum Gram Stain - Final 07/11/21 09:40 Sputum - Expectorated Sputum Sputum Culture - Preliminary Gram Negative Rods - Constitutional no acute distress - *Routine Respiratory Exam Present: rhonchi - *Routine Cardiovascular Exam Present: RRR - *Routine Abdominal Exam Present: soft, normoactive bowel sounds. Absent: tenderness Assessment and Plan (1) Acute respiratory failure Status: Acute Category: Medical Code(s): J96.00 - Acute respiratory failure, unspecified whether with hypoxia or hypercapnia (2) Viral pneumonia Status: Acute Category: Medical Code(s): J12.9 - Viral pneumonia, unspecified (3) Severe chronic obstructive pulmonary disease Status: Acute Category: Medical Code(s): J44.9 - Chronic obstructive pulmonary disease, unspecified (4) COVID-19 Status: Acute Category: Medical Code(s): U07.1 - COVID-19 (5) Transaminitis Status: Acute Category: Medical Code(s): R74.01 - Elevation of levels of liver transaminase levels - Assessment and plan all Dx Assessment and Plan for all problems:: 1. Continue attempts to wean Vapotherm 2. Patient will get out of bed to chair today 3. Restart patient's duloxetine 30 mg 4. Start MiraLAX daily with milk of magnesia as needed for constipation
[2021-07-14 08:02] LABS: Lymphocytes % 9 % (10-50); Monocytes % 5 % (2-9); Neutrophils % 86 % (42-76); Total Cells Counted 100
[2021-07-14 08:03] LABS: Platelet Estimate Normal
--- NOTE | 2021-07-14 09:31 | P.PN_ITS ---
Internal Medicine - PN: Subj *Date: 07/14/21 *Time: 14:16 Interval history: No acute respiratory events overnight. Exam - Constitutional Constitutional:: Present: no acute distress, comfortable - HENMT Exam HENMT: Present: normocephalic, atraumatic - Eye Exam Eyes:: Present: normal appearance both eyes and related structures - Neck Exam Neck:: Present: normal visual inspection - Respiratory Exam Respiratory:: Present: able to speak in complete sentences, respiratory di stress. Absent: wheezing - Cardiovascular Exam Cardiac:: Present: S1, S2 - GI Exam GI:: Present: soft - Skin Exam Skin: Present: warm, no rash - Neurological Exam Neurological: Present: alert, awake, normal cognition - Extremities Exam Extremities: Present: no cyanosis, no clubbing, no edema Assessment and Plan (1) Acute respiratory failure Status: Acute Category: Medical Code(s): J96.00 - Acute respiratory failure, unspecified whether with hypoxia or hypercapnia (2) Viral pneumonia Status: Acute Category: Medical Code(s): J12.9 - Viral pneumonia, unspecified (3) Severe chronic obstructive pulmonary disease Status: Acute Category: Medical Code(s): J44.9 - Chronic obstructive pulmonary disease, unspecified (4) COVID-19 Status: Acute Category: Medical Code(s): U07.1 - COVID-19 (5) Transaminitis Status: Acute Category: Medical Code(s): R74.01 - Elevation of levels of liver transaminase levels - Assessment and plan all Dx Assessment and Plan for all problems:: #Acute hypoxic respiratory failure: #COVID-19 pneumonia: 61-year-old prior smoker following in pulmonary clinic for asthma COPD overlap syndrome with symptoms started on July 01 with a positive COVID-19 PCR testing on July 04 present with progressively worsening respiratory distress. CRP elevated at 97.6 ferritin elevated at 1790. D-dimer at 0.84. Chest x-ray admission showed bilateral pulmonary lower lobe patchy airspace disease with no effusion. Lower extremity Doppler negative for DVT. No CTA performed. We will closely monitor. Patient respiratory status remained stable since yesterday he admits improvement in his breathing with nebulization therapies. Patient complains of constipation and primary team ordered MiraLAX today. He denies any other new complaints. Plan: -Adequate oral intake, recommend discontinuing maintenance fluids. -Change antibiotics to levofloxacin 750 IV daily -Continue awake proning protocol -F/U Nasal MRSA PCR -Continue high flow nasal cannula and supplementation to maintain O2 saturation goal of 88 to 92% -Continue Advair 250 and Spiriva inhalers along with DuoNebs every 6 hours as needed -Remdesivir abd dexamethasone r COVID-19 pneumonia. Transaminases improving. Continue baricitinib
--- NOTE | 2021-07-14 09:32 | XR_ITS ---
PROCEDURE: XR CHEST PORTABLE CLINICAL HISTORY: PNM Follow-up pneumonia COMPARISON: CR CXR CHEST(2 VIEWS-NOT PORTABLE) from 12/13/2015 CR XR CHEST PORTABLE from 10/04/[address] CHEST WO CON from 06/30/2021 CR XR CHEST PORTABLE from 07/10/2021 FINDINGS: The cardiomediastinal silhouette and pulmonary vascularity are within normal limits. Bilateral lower lobe pneumonia once again noted slightly improved in the right lung base. No evidence of pneumothorax or significant effusion. No acute bony abnormalities. IMPRESSION: Bilateral pneumonia slightly improved on the right Dictated by: Onur Meade MD 07/14/2021 10:16 Onur Meade MD in [facility] 07/14/2021 10:16
--- NOTE | 2021-07-14 17:38 | PC.NURSE ---
unable to wean patient's fio2 levels throughout day. patient experienced desaturation upon ambulation. This will continue to be assessed every shift. patient was able to have bowel movement. ABD distention decreased. Patient was able to ambulate throughout the day in room, and sit up for each meal in chair. Use of I/S with encouragement. No further orders at this time will continue to monitor
[2021-07-15] VITALS (10 sets, daily range): BP systolic 102–132; BP diastolic 60–82; PULSE 77–91; RESP 18–25; TEMP 36.3–36.8; O2SAT 92–98; BMI 25.7
--- NOTE | 2021-07-15 03:33 | PC.NURSE ---
No acute changes t/o shift. pt remains on vapotherm with O2 stats 92%-94%. Pt denies any pain t/o shift. Pt uses urinal independently. Call light within reach, will continue to monitor.
[2021-07-15 06:49] LABS: Basophils # 0.1 K/mm3 (0-0.2); Basophils % 0.3 % (0.1-2.0); Eosinophils # 0.1 K/mm3 (0.0-0.4); Eosinophils % 0.5 % (0.1-12.0); Hematocrit 39.4 % (42.0-52.0); Hemoglobin 13.3 g/dL (14.1-18.0); Lymphocytes # 1.3 K/mm3 (0.7-4.5); Lymphocytes % 7.4 % (10-50); Mean Corpuscular HGB Conc 33.9 g/dL (31.8-35.4); Mean Corpuscular Hemoglobin 32.1 pg (27.0-31.2); Mean Corpuscular Volume 94.7 fl (80-94); Mean Platelet Volume 8.4 fl (7.4-10.4); Monocytes # 0.4 K/mm3 (0.1-1.0); Monocytes % 2.6 % (1.7-9.3); Neutrophils # 15.2 K/mm3 (1.8-7.8); Neutrophils % 89.3 % (37.0-80.0); Platelet Count 406 K/mm3 (142-424); Red Blood Count 4.16 M/mm3 (4.60-6.20); Red Cell Distribution Width 13.1 % (11.5-17.5)
[2021-07-15 07:01] LABS: MANUAL DIFFERENTIAL MANUAL DIFFERENTIAL (MANUAL DIFF)
[2021-07-15 07:03] LABS: Alanine Aminotransferase 77 U/L (12-78); Albumin Level 3.3 g/dl (3.5-5.0); Albumin/Globulin Ratio 1.2 (1.1-1.8); Alkaline Phosphatase 77 U/L (38-126); Anion Gap 12.4 mEq/L (5-15); Aspartate Amino Transferase 42 U/L (17-59); Bilirubin,Total 0.8 mg/dl (0.2-1.3); Blood Urea Nitrogen 16 mg/dl (9-20); Calcium 8.7 mg/dl (8.4-10.2); Carbon Dioxide 28 mmol/L (22.0-30.0); Chloride 94 mmol/L (98-107); Creatinine Clearance Estimated 134 mL/min (50-200); Estimated Glomerular Filt Rate 115 ml/min (>60); GFR (African American) 140 ML/MIN (>60); Globulin 2.7 g/dL (1.3-3.2); Glucose 100 mg/dl (74-100); Potassium 4.4 mmoL/L (3.5-5.1); Sodium 130 mmol/L (136-145)
--- NOTE | 2021-07-15 07:14 | HMH.ACPN2 ---
Internal Medicine - PN: Subj *Date: 07/15/21 *Time: 07:14 Interval history: Patient feels better. He has persistent sensation of upper airway congestion Exam Vital signs and Labs for Last 24 Hours: Temp Pulse Resp BP Pulse Ox 98.2 F 77 18 128/82 92 L 07/15/21 04:00 07/15/21 06:19 07/15/21 04:00 07/15/21 04:00 07/15/21 06:19 Laboratory Results - last 24 hr 07/14/21 06:49: WBC 15.1 H, RBC 4.26 L, Hgb 13.7 L, Hct 40.6 L, MCV 95.3 H, MCH 32.2 H, MCHC 33.8, RDW 13.0, Plt Count 413, MPV 8.4, Neut % (Auto) 87.7 H, Lymph % (Auto) 8.4 L, [place] % (Auto) 3.2, Eos % (Auto) 0.1, Baso % (Auto) 0.5, Neut # (Auto) 13.3 H, Lymph # (Auto) 1.3, [place] # (Auto) 0.5, Eos # (Auto) 0.0, Baso # (Auto) 0.1, Total Counted 100, Neutrophils % (Manual) 86 H, Lymphocytes % (Manual) 9 L, Monocytes % (Manual) 5, Platelet Estimate Normal 07/14/21 06:49: Sodium 133 L, Potassium 3.8, Chloride 95 L, Carbon Dioxide 27, Anion Gap 14.8, BUN 17, Creatinine 0.80, Estimated Creat Clear 117, Estimated GFR 99, Est GFR ( Amer) 120, Glucose 116 H, Calcium 8.8, Total Bilirubin 0.7, AST 62 H, ALT 97 H, Alkaline Phosphatase 85, Total Protein 6.3, Albumin 3.3 L, Globulin 3.0, Albumin/Globulin Ratio 1.1 07/15/21 06:23: WBC 17.0 H, RBC 4.16 L, Hgb 13.3 L, Hct 39.4 L, MCV 94.7 H, MCH 32.1 H, MCHC 33.9, RDW 13.1, Plt Count 406, MPV 8.4, Neut % (Auto) 89.3 H, Lymph % (Auto) 7.4 L, [place] % (Auto) 2.6, Eos % (Auto) 0.5, Baso % (Auto) 0.3, Neut # (Auto) 15.2 H, Lymph # (Auto) 1.3, [place] # (Auto) 0.4, Eos # (Auto) 0.1, Baso # (Auto) 0.1 07/15/21 06:23: Sodium 130 L, Potassium 4.4, Chloride 94 L, Carbon Dioxide 28, Anion Gap 12.4, BUN 16, Creatinine 0.70, Estimated Creat Clear 134, Estimated GFR 115, Est GFR ( Amer) 140, Glucose 100, Calcium 8.7, Total Bilirubin 0.8, AST 42 D, ALT 77, Alkaline Phosphatase 77, Total Protein 6.0 L, Albumin 3.3 L, Globulin 2.7, Albumin/Globulin Ratio 1.2 I & O for Last 24 hours: Intake & Output 07/12/21 07/13/21 07/14/21 07/15/21 11:59 11:59 11:59 11:59 Intake Total 840 / 840 600 / 600 840 / 840 600 / 600 Output Total 1550 / 1550 1500 / 1500 1850 / 1850 1350 / 1350 Balance -710 / -710 -900 / -900 -1010 / -1010 -750 / -750 Weight 184 lb 181 lb 9 oz 183 lb 8 oz 184 lb 4 oz Microbiology Reports for the Last 24 Hours: Microbiology 07/11/21 09:40 Sputum - Expectorated Sputum Gram Stain - Final 07/11/21 09:40 Sputum - Expectorated Sputum Sputum Culture - Preliminary Enterobacter aerogenes 07/11/21 18:42 Nose - Nasal MRSA Culture - Final Negative - Constitutional no acute distress - *Routine Respiratory Exam Present: rales - *Routine Cardiovascular Exam Present: RRR, Normal S1, Normal S2 Assessment and Plan (1) Acute respiratory failure Status: Acute Category: Medical Code(s): J96.00 - Acute respiratory failure, unspecified whether with hypoxia or hypercapnia (2) Viral pneumonia Status: Acute Category: Medical Code(s): J12.9 - Viral pneumonia, unspecified (3) Severe chronic obstructive pulmonary disease Status: Acute Category: Medical Code(s): J44.9 - Chronic obstructive pulmonary disease, unspecified (4) COVID-19 Status: Acute Category: Medical Code(s): U07.1 - COVID-19 (5) Transaminitis Status: Acute Category: Medical Code(s): R74.01 - Elevation of levels of liver transaminase levels - Assessment and plan all Dx Assessment and Plan for all problems:: No change in plan of care. Continue to wean oxygen to keep sats greater than 90%
[2021-07-15 07:22] LABS: Eosinophils % 1 % (0-3); Lymphocytes % 9 % (10-50); Monocytes % 5 % (2-9); Neutrophils % 85 % (42-76); Total Cells Counted 100
[2021-07-15 07:23] LABS: Platelet Estimate Normal
--- NOTE | 2021-07-15 09:02 | P.PN_ITS ---
Internal Medicine - PN: Subj *Date: 07/15/21 *Time: 11:52 Interval history: No acute respiratory events overnight. Patient admits slight improvement in his symptoms. Exam - Constitutional Constitutional:: Present: no acute distress, comfortable - HENMT Exam HENMT: Present: normocephalic, atraumatic - Eye Exam Eyes:: Present: normal appearance both eyes and related structures - Neck Exam Neck:: Present: normal visual inspection - Respiratory Exam Respiratory:: Present: able to speak in complete sentences, crackles - Cardiovascular Exam Cardiac:: Present: S1, S2 - GI Exam GI:: Present: soft - Skin Exam Skin: Present: warm, no rash - Neurological Exam Neurological: Present: alert, awake, normal cognition - Extremities Exam Extremities: Present: no cyanosis, no clubbing, no edema Assessment and Plan (1) Acute respiratory failure Status: Acute Category: Medical Code(s): J96.00 - Acute respiratory failure, unspecified whether with hypoxia or hypercapnia (2) Viral pneumonia Status: Acute Category: Medical Code(s): J12.9 - Viral pneumonia, unspecified (3) Severe chronic obstructive pulmonary disease Status: Acute Category: Medical Code(s): J44.9 - Chronic obstructive pulmonary disease, unspecified (4) COVID-19 Status: Acute Category: Medical Code(s): U07.1 - COVID-19 (5) Transaminitis Status: Acute Category: Medical Code(s): R74.01 - Elevation of levels of liver transaminase levels - Assessment and plan all Dx Assessment and Plan for all problems:: #Acute hypoxic respiratory failure: #COVID-19 pneumonia: 61-year-old prior smoker following in pulmonary clinic for asthma COPD overlap syndrome with symptoms started on July 01 with a positive COVID-19 PCR testing on July 04 present with progressively worsening respiratory distress. CRP elevated at 97.6 ferritin elevated at 1790. D-dimer at 0.84. Chest x-ray admission showed bilateral pulmonary lower lobe patchy airspace disease with no effusion. Lower extremity Doppler negative for DVT. No CTA performed. Patient respiratory status remained stable since yesterday he admits improvement in his breathing with nebulization therapies. Patient has a bowel movement yesterday. He admits cough with productive phlegm. Will initiate flutter valve Plan: -Flutter valve every 6 hours -Levofloxacin 750 IV daily, sputum cultures growing Enterobacter aerogenes sens itive to levofloxacin. Nasal MRSA PCR negative leukocytosis slightly worsening antibiotics changed levofloxacin yesterday. We will closely monitor. Chest x- ray from yesterday improving. -Continue awake proning protocol -Continue high flow nasal cannula and supplementation to maintain O2 saturation goal of 88 to 92% -Continue Advair 250 and Spiriva inhalers along with DuoNebs every 6 hours as ne eded -Remdesivir abd dexamethasone r COVID-19 pneumonia. Transaminases improving. Continue baricitinib
--- NOTE | 2021-07-15 13:55 | PC.NURSE ---
pt asleep. Placed flutter value on bedside table.
--- NOTE | 2021-07-15 17:26 | PC.NURSE ---
pt has been up to the chair some this shift and has laid prone this shift, remains on vapotherm with O2 sats 93-98%, has not had any complaints of SOA or pain, has had a bowel movement this shift,
[2021-07-16] VITALS (10 sets, daily range): BP systolic 108–126; BP diastolic 64–74; PULSE 58–88; RESP 16–20; TEMP 36.6–36.9; O2SAT 93–100; BMI 25.2
--- NOTE | 2021-07-16 03:53 | PC.NURSE ---
Shift summary. pt has been pleasant and cooperative t/o shift. Up to chair at beginning of shift for 2h. Rested in bed majority of shift prone and on sides. Pt has not voiced any complaints to staff t/o shift. O2 continues to be administered via vapotherm 35 L 70% tolerating well with sats in mid 90s. Able to ambulate in room independently. 20 g IV in left hand patent and SL. VSS. Call light within reach. Will continue to monitor.
[2021-07-16 06:49] LABS: Basophils # 0.1 K/mm3 (0-0.2); Basophils % 0.4 % (0.1-2.0); Eosinophils # 0.1 K/mm3 (0.0-0.4); Eosinophils % 0.5 % (0.1-12.0); Hematocrit 38.9 % (42.0-52.0); Hemoglobin 13.1 g/dL (14.1-18.0); Lymphocytes # 1.2 K/mm3 (0.7-4.5); Lymphocytes % 10.1 % (10-50); Mean Corpuscular HGB Conc 33.7 g/dL (31.8-35.4); Mean Corpuscular Hemoglobin 31.8 pg (27.0-31.2); Mean Corpuscular Volume 94.4 fl (80-94); Mean Platelet Volume 8.1 fl (7.4-10.4); Monocytes # 0.5 K/mm3 (0.1-1.0); Monocytes % 3.8 % (1.7-9.3); Neutrophils # 10.4 K/mm3 (1.8-7.8); Neutrophils % 85.1 % (37.0-80.0); Platelet Count 417 K/mm3 (142-424); Red Blood Count 4.12 M/mm3 (4.60-6.20); Red Cell Distribution Width 12.9 % (11.5-17.5); White Blood Count 12.2 K/mm3 (4.8-10.8)
[2021-07-16 06:50] LABS: MANUAL DIFFERENTIAL MANUAL DIFFERENTIAL (MANUAL DIFF)
[2021-07-16 07:07] LABS: Alanine Aminotransferase 62 U/L (12-78); Albumin Level 3.3 g/dl (3.5-5.0); Albumin/Globulin Ratio 1.1 (1.1-1.8); Alkaline Phosphatase 77 U/L (38-126); Aspartate Amino Transferase 33 U/L (17-59); Bilirubin,Total 0.7 mg/dl (0.2-1.3); Blood Urea Nitrogen 18 mg/dl (9-20); Calcium 8.9 mg/dl (8.4-10.2); Carbon Dioxide 27 mmol/L (22.0-30.0); Chloride 91 mmol/L (98-107); Creatinine Clearance Estimated 115 mL/min (50-200); Estimated Glomerular Filt Rate 99 ml/min (>60); GFR (African American) 120 ML/MIN (>60); Globulin 2.9 g/dL (1.3-3.2); Glucose 124 mg/dl (74-100); Sodium 128 mmol/L (136-145); Total Protein,Serum 6.2 g/dl (6.3-8.2)
--- NOTE | 2021-07-16 08:18 | P.PN_ITS ---
Internal Medicine - PN: Subj *Date: 07/16/21 *Time: 08:18 Interval history: Patient has no new complaints. Cough is productive of brown sputum that he reports amount of sputum is decreasing. He continues to complain of a congested sensation in his throat. O2 sats have remained in the mid to high 90s over the last 24 hours on high flow nasal cannula Exam Vital signs and Labs for Last 24 Hours: Temp Pulse Resp BP Pulse Ox 97.9 F 58 L 20 122/74 93 L 07/16/21 04:00 07/16/21 04:00 07/16/21 04:00 07/16/21 04:00 07/16/21 07:15 Laboratory Results - last 24 hr 07/16/21 06:15: WBC 12.2 H D, RBC 4.12 L, Hgb 13.1 L, Hct 38.9 L, MCV 94.4 H, MCH 31.8 H, MCHC 33.7, RDW 12.9, Plt Count 417, MPV 8.1, Neut % (Auto) 85.1 H, Lymph % (Auto) 10.1, [place] % (Auto) 3.8, Eos % (Auto) 0.5, Baso % (Auto) 0.4, Neut # (Auto) 10.4 H, Lymph # (Auto) 1.2, [place] # (Auto) 0.5, Eos # (Auto) 0.1, Baso # (Auto) 0.1 07/16/21 06:15: Sodium 128 L, Potassium 4.0, Chloride 91 L, Carbon Dioxide 27, Anion Gap 14.0, BUN 18, Creatinine 0.80, Estimated Creat Clear 115, Estimated GFR 99, Est GFR ( Amer) 120, Glucose 124 H D, Calcium 8.9, Total Bilirubin 0.7, AST 33, ALT 62, Alkaline Phosphatase 77, Total Protein 6.2 L, Albumin 3.3 L, Globulin 2.9, Albumin/Globulin Ratio 1.1 I & O for Last 24 hours: Intake & Output 07/13/21 07/14/21 07/15/21 07/16/21 11:59 11:59 11:59 11:59 Intake Total 600 / 600 840 / 840 1080 / 1080 360 / 360 Output Total 1500 / 1500 1850 / 1850 2049 / 2050 1900 / 1900 Balance -900 / -900 -1010 / -1010 -970 / -970 -1540 / -1540 Weight 181 lb 9 oz 183 lb 8 oz 184 lb 4 oz 180 lb 2 oz Microbiology Reports for the Last 24 Hours: Microbiology 07/10/21 10:15 Blood Blood Culture - Final NO GROWTH AFTER 5 DAYS 07/10/21 10:15 Blood Blood Culture - Final NO GROWTH AFTER 5 DAYS 07/11/21 09:40 Sputum - Expectorated Sputum Gram Stain - Final 07/11/21 09:40 Sputum - Expectorated Sputum Sputum Culture - Final Enterobacter aerogenes 07/11/21 18:42 Nose - Nasal MRSA Culture - Final Negative - Constitutional no acute distress - *Routine Respiratory Exam Present: rales - *Routine Cardiovascular Exam Present: RRR - *Routine Abdominal Exam Present: soft, normoactive bowel sounds. Absent: tenderness Assessment and Plan (1) Acute respiratory failure Status: Acute Category: Medical Code(s): J96.00 - Acute respiratory failure, unspecified whether with hypoxia or hypercapnia (2) Viral pneumonia Status: Acute Category: Medical Code(s): J12.9 - Viral pneumonia, unspecified (3) Severe chronic obstructive pulmonary disease Status: Acute Category: Medical Code(s): J44.9 - Chronic obstructive pulmonary disease, unspecified (4) COVID-19 Status: Acute Category: Medical Code(s): U07.1 - COVID-19 (5) Transaminitis Status: Acute Category: Medical Code(s): R74.01 - Elevation of levels of liver transaminase levels - Assessment and plan all Dx Assessment and Plan for all problems:: 1. Wean HFNC 2. Continue Levaquin for Enterobacter Aerogenes infection 3. Continue remdesivir, dexamethasone, baricitinib for patient's COVID-19 infection
[2021-07-16 08:22] LABS: Eosinophils % 1 % (0-3); Lymphocytes % 12 % (10-50); Monocytes % 7 % (2-9); Neutrophils % 76 % (42-76); Total Cells Counted 100
[2021-07-16 08:23] LABS: Platelet Estimate Normal; RBC Morphology Normal
--- NOTE | 2021-07-16 11:30 | PC.NURSE ---
RESP CARE NOTE: Pt decreased to 30lpm/60% FIO2. SPO2 at 99%.
--- NOTE | 2021-07-16 18:18 | PC.NURSE ---
Patient A&O x3, lungs: wheezing heard throughout, pulses are equal. Patient slept prone this am. Patient up to chair for most of this RN shift. Tolerated meals well, ambulated from bed to chair.
[2021-07-17] VITALS (12 sets, daily range): BP systolic 110–134; BP diastolic 55–91; PULSE 74–90; RESP 16–22; TEMP 36.6–36.8; O2SAT 94–98; BMI 25.2
--- NOTE | 2021-07-17 08:59 | HMH.ACPN2 ---
Internal Medicine - PN: Subj *Date: 07/17/21 *Time: 08:59 Interval history: Patient remained stable on high flow nasal cannula. No acute events in the last 24 hours Exam Vital signs and Labs for Last 24 Hours: Temp Pulse Resp BP Pulse Ox 98 F 90 18 125/91 H 94 L 07/17/21 04:00 07/17/21 04:00 07/17/21 04:00 07/17/21 04:00 07/17/21 04:00 I & O for Last 24 hours: Intake & Output 07/14/21 07/15/21 07/16/21 07/17/21 11:59 11:59 11:59 11:59 Intake Total 840 / 840 1080 / 1080 600 / 600 480 / 480 Output Total 1850 / 1850 2050 / 2050 2300 / 3100 1775 / 1775 Balance -1010 / -1010 -970 / -970 -1700 / -2500 -1295 / -1295 Weight 183 lb 8 oz 184 lb 4 oz 180 lb 2 oz 180 lb Narrative: Patient is ambulating within the room with his high flow nasal cannula. He shows no signs of respiratory distress. Lungs have some scattered faint rhonchi but overall good aeration. Heart has a regular rate and rhythm. Assessment and Plan (1) Acute respiratory failure Status: Acute Category: Medical Code(s): J96.00 - Acute respiratory failure, unspecified whether with hypoxia or hypercapnia (2) Viral pneumonia Status: Acute Category: Medical Code(s): J12.9 - Viral pneumonia, unspecified (3) Severe chronic obstructive pulmonary disease Status: Acute Category: Medical Code(s): J44.9 - Chronic obstructive pulmonary disease, unspecified (4) COVID-19 Status: Acute Category: Medical Code(s): U07.1 - COVID-19 (5) Transaminitis Status: Acute Category: Medical Code(s): R74.01 - Elevation of levels of liver transaminase levels - Assessment and plan all Dx Assessment and Plan for all problems:: Continue attempts to wean high flow nasal cannula to simple nasal cannula. Patient remains on Remdesivir, dexamethasone, baricitinib, Levaquin
[2021-07-17 10:37] LABS: Chloride 91 mmol/L (98-107); Sodium 127 mmol/L (136-145)
[2021-07-17 10:40] LABS: Alanine Aminotransferase 57 U/L (12-78); Albumin Level 3.3 g/dl (3.5-5.0); Albumin/Globulin Ratio 1.1 (1.1-1.8); Alkaline Phosphatase 83 U/L (38-126); Aspartate Amino Transferase 34 U/L (17-59); Bilirubin,Total 0.5 mg/dl (0.2-1.3); Blood Urea Nitrogen 21 mg/dl (9-20); Carbon Dioxide 28 mmol/L (22.0-30.0); Creatinine Clearance Estimated 102 mL/min (50-200); Estimated Glomerular Filt Rate 86 ml/min (>60); GFR (African American) 105 ML/MIN (>60); Globulin 2.9 g/dL (1.3-3.2); Total Protein,Serum 6.2 g/dl (6.3-8.2)
[2021-07-17 10:41] LABS: Glucose 143 mg/dl (74-100)
--- NOTE | 2021-07-17 15:04 | PC.NURSE ---
NO ACUTE CHANGES THIS SHIFT, AOX4, HAS BEEN UP TO CHAIR FOR MOST OF SHIFT, VAPOTHERM HAS BEEN TITRATED DOWN MULTIPLE TIMES, PT PRONE THIS AM AND TOLERATED WELL, DENIES N/V/D, STATES THAT HE FEELS BETTER.
[2021-07-18] VITALS (8 sets, daily range): BP systolic 105–135; BP diastolic 71–78; PULSE 67–84; RESP 18–20; TEMP 36.4–36.8; O2SAT 93–98; BMI 25.0
--- NOTE | 2021-07-18 03:38 | PC.NURSE ---
No acute changes noted t/o shift. Pt has remained on vapotherm 25L at 40% and tolerated well. Pt denies pain or SOA. No reports of N/V/D. Call light in reach. Will continue to monitor.
--- NOTE | 2021-07-18 07:00 | P.PN_ITS ---
Internal Medicine - PN: Subj *Date: 07/18/21 *Time: 07:00 Interval history: No acute events. Patient is stable and has been weaned down on high flow nasal cannula. He is in good spirits Exam Vital signs and Labs for Last 24 Hours: Temp Pulse Resp BP Pulse Ox 98.2 F 67 18 118/78 93 L 07/18/21 04:00 07/18/21 06:25 07/18/21 04:00 07/18/21 04:00 07/18/21 06:25 Laboratory Results - last 24 hr 07/17/21 10:15: Sodium 127 L, Potassium 4.0, Chloride 91 L, Carbon Dioxide 28, Anion Gap 12.0, BUN 21 H, Creatinine 0.90, Estimated Creat Clear 102, Estimated GFR 86, Est GFR ( Amer) 105, Glucose 143 H, Calcium 9.0, Total Bilirubin 0.5, AST 34, ALT 57, Alkaline Phosphatase 83, Total Protein 6.2 L, Albumin 3.3 L , Globulin 2.9, Albumin/Globulin Ratio 1.1 I & O for Last 24 hours: Intake & Output 07/15/21 07/16/21 07/17/21 07/18/21 11:59 11:59 11:59 11:59 Intake Total 1080 / 1080 600 / 600 720 / 720 720 / 720 Output Total 2050 / 2050 2300 / 3100 2075 / 2400 1850 / 1850 Balance -970 / -970 -1700 / -2500 -1355 / -1680 -1130 / -1130 Weight 184 lb 4 oz 180 lb 2 oz 180 lb 179 lb 1.6 oz - Constitutional no acute distress - *Routine Neck Exam Present: supple. Absent: lymphadenopathy - *Routine Respiratory Exam Present: CTA bilaterally - *Routine Cardiovascular Exam Present: RRR Assessment and Plan (1) Acute respiratory failure Status: Acute Category: Medical Code(s): J96.00 - Acute respiratory failure, unspecified whether with hypoxia or hypercapnia (2) Viral pneumonia Status: Acute Category: Medical Code(s): J12.9 - Viral pneumonia, unspecified (3) Severe chronic obstructive pulmonary disease Status: Acute Category: Medical Code(s): J44.9 - Chronic obstructive pulmonary disease, unspecified (4) COVID-19 Status: Acute Category: Medical Code(s): U07.1 - COVID-19 (5) Transaminitis Status: Acute Category: Medical Code(s): R74.01 - Elevation of levels of liver transaminase levels - Assessment and plan all Dx Assessment and Plan for all problems:: Continue to wean high flow nasal cannula back to simple nasal cannula. Once patient shows stable O2 sats on simple nasal cannula patient will be discharged to home. At present continue Remdesivir, dexamethasone, baricitinib, Levaquin
--- NOTE | 2021-07-18 11:59 | P.PN_ITS ---
Internal Medicine - PN: Subj *Date: 07/18/21 *Time: 11:59 Interval history: No acute respiratory events overnight. Patient admits continued improvement in symptoms. Exam - Constitutional Constitutional:: Present: no acute distress, comfortable - HENMT Exam HENMT: Present: normocephalic, atraumatic - Eye Exam Eyes:: Present: normal appearance both eyes and related structures - Neck Exam Neck:: Present: normal visual inspection - Respiratory Exam Respiratory:: Present: able to speak in complete sentences, normal respiratory effort - Cardiovascular Exam Cardiac:: Present: S1, S2 - GI Exam GI:: Present: soft - Skin Exam Skin: Present: warm, no rash - Neurological Exam Neurological: Present: alert, awake - Extremities Exam Extremities: Present: no cyanosis, no clubbing, no edema Assessment and Plan (1) Acute respiratory failure Status: Acute Category: Medical Code(s): J96.00 - Acute respiratory failure, unspecified whether with hypoxia or hypercapnia (2) Viral pneumonia Status: Acute Category: Medical Code(s): J12.9 - Viral pneumonia, unspecified (3) Severe chronic obstructive pulmonary disease Status: Acute Category: Medical Code(s): J44.9 - Chronic obstructive pu lmonary disease, unspecified (4) COVID-19 Status: Acute Category: Medical Code(s): U07.1 - COVID-19 (5) Transaminitis Status: Acute Category: Medical Code(s): R74.01 - Elevation of levels of liver transaminase levels - Assessment and plan all Dx Assessment and Plan for all problems:: #Acute hypoxic respiratory failure: #COVID-19 pneumonia: 61-year-old prior smoker following in pulmonary clinic for asthma COPD overlap syndrome with symptoms started on July 01 with a positive COVID-19 PCR testing on July 04 present with progressively worsening respiratory distress. CRP elevated at 97.6 ferritin elevated at 1790. D-dimer at 0.84. Chest x-ray admission showed bilateral pulmonary lower lobe patchy airspace disease with no effusion. Lower extremity Doppler negative for DVT. No CTA performed. Patient respiratory status continued to improve. Plan: -Wean high flow nasal cannula to 6 L nasal cannula and further wean as tolerated with O2 saturation goal of 90% and above -Continue flutter valve and incentive spirometry. -We will discontinue nebs every 6 hours as needed. We will continue home inhaler therapy ( Advair 250 and Spiriva inhalers ) along with Combivent every 6 hours as needed -We will continue levofloxacin for total of 5 days.. Nasal MRSA PCR negative leukocytosis slightly worsening antibiotics changed levofloxacin yesterday. We will closely monitor. Chest x-ray from yesterday improving. -Remdesivir and dexamethasone x 10 days. Continue baricitinib x 14 days Thank you for involving pulmonary in this patient care. We will continue to follow.
[2021-07-18 14:44] LABS: Alanine Aminotransferase 52 U/L (12-78); Albumin Level 3.3 g/dl (3.5-5.0); Albumin/Globulin Ratio 1.1 (1.1-1.8); Alkaline Phosphatase 77 U/L (38-126); Anion Gap 10.7 mEq/L (5-15); Aspartate Amino Transferase 29 U/L (17-59); Bilirubin,Total 0.7 mg/dl (0.2-1.3); Blood Urea Nitrogen 20 mg/dl (9-20); Calcium 8.7 mg/dl (8.4-10.2); Carbon Dioxide 28 mmol/L (22.0-30.0); Chloride 93 mmol/L (98-107); Creatinine Clearance Estimated 114 mL/min (50-200); Estimated Glomerular Filt Rate 99 ml/min (>60); GFR (African American) 120 ML/MIN (>60); Globulin 2.9 g/dL (1.3-3.2); Glucose 98 mg/dl (74-100); Potassium 3.7 mmoL/L (3.5-5.1); Sodium 128 mmol/L (136-145); Total Protein,Serum 6.2 g/dl (6.3-8.2)
--- NOTE | 2021-07-18 18:03 | PC.NURSE ---
Pt has been pleasant and cooperative this shift. A&O X4. Pt is currently receiving O2 via NC @ 3 LPM with sats. >90%. Lungs CTA. No edema noted. Skin is C/D/I. Pt ambulates independently to/from the bathroom and throughout the room. Urine is clear and yellow. No BM thus far today. Pt has sat up in the recliner for the majority of the day and has proned himself as tolerated. Appetite is good and pt eats the majority of all meals. 20 G peripheral IV in the LT hand is patent and SL. VSS. Call light within reach. Will continue to monitor.
[2021-07-19] VITALS: BP 116/73; PULSE 81; RESP 16; TEMP 36.6; O2SAT 96
--- NOTE | 2021-07-19 03:44 | PC.NURSE ---
Shift summary. No acute changes. Continues to receive O2 via nc at 3 L. Tolerating well with sats in upper 90s. No c/o SOA, pain voiced to staff t/o shift. Able to ambulate in room and to bathroom independently. Pt currently resting in bed. VSS. CB in reach. Will continue to monitor.
[2021-07-19 04:00] VITALS: BP 132/82; PULSE 81; RESP 18; TEMP 36.8; O2SAT 96
[2021-07-19 04:56] VITALS: BMI 25.2
[2021-07-19 06:37] VITALS: O2SAT 93
--- NOTE | 2021-07-19 06:56 | HMH.DCSUM ---
General - General Admission date:: 07/10/21 Discharge date: 07/19/21 HPI HPI: 61-year-old male presented to the emergency department with dyspnea on exertion. Patient had a positive Covid test on July 04 and reports his initial symptoms began on July 01. Patient had been seen as an outpatient and prescribed azithromycin and steroids. He has underlying COPD and is already using both controller inhalers and rescue inhalers. Yesterday morning he became so short of breath with exertion he had difficulty fixing his breakfast. Patient came to the emergency department and was found to be hypoxic with O2 sat in the 70s on room air. Patient's work-up with consistent with viral pneumonia from COVID-19 with acute respiratory failure. Patient initially was able to sat in the low 90s on 6 L but had to be transitioned to high flow nasal cannula in the emergency department. Patient has been admitted and placed on dexamethasone, Remdesivir, nutritional supplements. This morning the patient reports feeling better and denies dyspnea with the high flow nasal cannula. Hospital Course Hospital Course: Patient was admitted to the hospital with diagnosis of viral pneumonia from COVID-19 infection with acute respiratory failure requiring high flow nasal cannula to maintain O2 sats above 90%. Patient was started on dexamethasone, Remdesivir, baricitinib along with Rocephin and azithromycin to cover possibility of superimposed bacterial infection. Patient required high flow nasal cannula to maintain oxygenation and was not able to be weaned until July 18. During the middle of the hospitalization patient sputum culture did return Enterobacter aerogenes and patient was placed on Levaquin. On July 18 patient was weaned from high flow nasal cannula to simple nasal cannula and was able to maintain O2 sats above 90% on 3 L/min. After 24 hours of additional monitoring to ensure stability of O2 saturations patient was discharged home. He will need home oxygen at discharge to continue use of nasal cannula at 3 L/min. Patient has COPD and was continued on his home medications or their equivalents during hospitalization. Patient was given duo nebs 4 times daily. Patient also received chest physiotherapy. Patient had elevated transaminases on admission that trended down during hospitalization Objective Vital signs: Temp Pulse Resp BP Pulse Ox 98.3 F 81 18 132/82 93 L 07/19/21 04:00 07/19/21 04:00 07/19/21 04:00 07/19/21 04:00 07/19/21 06:37 no acute distress - *Routine Respiratory Exam Present: rales, distant breath sounds - *Routine Cardiovascular Exam Present: RRR - *Routine Abdominal Exam Present: soft, normoactive bowel sounds. Absent: tenderness Results Labs on day of discharge: Labs from last 24 hours 07/18/21 06:47 Sodium 128 L Potassium 3.7 Chloride 93 L Carbon Dioxide 28 Anion Gap 10.7 BUN 20 Creatinine 0.80 Estimated Creat Clear 114 Estimated GFR 99 Est GFR ( Amer) 120 Glucose 98 D Calcium 8.7 Total Bilirubin 0.7 AST 29 ALT 52 Alkaline Phosphatase 77 Total Protein 6.2 L Albumin 3.3 L Globulin 2.9 Albumin/Globulin Ratio 1.1 DS: Diagnosis - Discharge Diagnosis (1) Acute respiratory failure Status: Resolved (2) Viral pneumonia Status: Acute (3) Severe chronic obstructive pulmonary disease Status: Acute (4) COVID-19 Status: Acute (5) Transaminitis Status: Acute (6) Infection due to Enterobacter aerogenes Status: Acute (7) Pneumonia due to enterobacter aerogenes Status: Acute Discharge Plan - Patient Discharge Instructions ACTIVITY: Continue current activity DIET: continue same diet Patient Instructions: Nutrition and Hydration: [employer] Against COVID-19 - Follow up Plan Follow up with: Helga Mario MD [Physician] - Dev Moseley MD [Primary Care Provider] - 1 week Dis
[2021-07-19 07:38] LABS: Alanine Aminotransferase 50 U/L (12-78); Albumin Level 3.3 g/dl (3.5-5.0); Albumin/Globulin Ratio 1.2 (1.1-1.8); Alkaline Phosphatase 79 U/L (38-126); Aspartate Amino Transferase 30 U/L (17-59); Bilirubin,Total 0.7 mg/dl (0.2-1.3); Blood Urea Nitrogen 19 mg/dl (9-20); Calcium 8.6 mg/dl (8.4-10.2); Carbon Dioxide 30 mmol/L (22.0-30.0); Chloride 92 mmol/L (98-107); Creatinine Clearance Estimated 131 mL/min (50-200); Estimated Glomerular Filt Rate 115 ml/min (>60); GFR (African American) 140 ML/MIN (>60); Globulin 2.8 g/dL (1.3-3.2); Glucose 95 mg/dl (74-100); Sodium 127 mmol/L (136-145); Total Protein,Serum 6.1 g/dl (6.3-8.2)
[2021-07-19 08:00] VITALS: BP 103/62; PULSE 88; RESP 18; TEMP 36.4; O2SAT 94
[2021-07-19 09:24] VITALS: O2SAT 88
--- NOTE | 2021-07-19 09:37 | SW/DCPLANNER ---
SENT AN ORDER FOR HOME 02 FOR THIS PATIENT WHO IS DISCHARGING HOME TODAY... ORDER WAS SENT TO THE LOCAL [facility] AND A PORTABLE TANK TO BE DELIVERED TO THE HOSPITAL PRIOR TO DISCHARGE HOME..
== END 2021-07-19 11:19 | disposition home or self-care (01) | DRG 177 ==
LOC: ER 11:16 → 2ND 14:34
PROVIDERS: Internal Medicine Pulmonary Disease; Admitting Provider Emergency Medicine; Emergency Provider Emergency Medicine; PCP Family Medicine; Visit Provider Family Medicine
DX: U07.1 COVID-19 (principal); J12.82 Pneumonia due to coronavirus disease 2019; J96.01 Acute respiratory failure with hypoxia; J15.6 Pneumonia due to other Gram-negative bacteria; J44.0 Chronic obstructive pulmonary disease with (acute) lower respiratory infection; E78.5 Hyperlipidemia, unspecified; I10 Essential (primary) hypertension; Z87.891 Personal history of nicotine dependence; M19.90 Unspecified osteoarthritis, unspecified site; R74.01 Elevation of levels of liver transaminase levels
CPT/HCPCS: 36415; 71045; 80053; 82728; 82803; 83605; 85007; 85025; 85378; 86140; 87040; 87070; 87077; 87081; 87186; 87205; 93005; 93970; 94640; 94761; 96365; 96375; 99285; J1956; J2405

== ENCOUNTER 2021-08-12 15:47 | Emergency (ER) | payer OTHER, SELFPAY ==
[2021-08-12 16:13] VITALS: BP 120/77; PULSE 107; RESP 20; TEMP 36.8; O2SAT 99; BMI 25.7
--- NOTE | 2021-08-12 16:36 | CT_ITS ---
PROCEDURE INFORMATION: Exam: CTA Chest With Contrast Exam date and time: 08/12/2021 4:36 PM Age: 61 years old Clinical indication: Shortness of breath; Additional info: Episodes of tachycardia, post covid, SOA TECHNIQUE: Imaging protocol: Computed tomographic angiography of the chest with contrast. 3D rendering (Not supervised by radiologist): MIP and/or 3D reconstructed images were created by the technologist. Total images: 631 Radiation optimization: All CT scans at this facility use at least one of these dose optimization techniques: automated exposure control; mA and/or kV adjustment per patient size (includes targeted exams where dose is matched to clinical indication); or iterative reconstruction. Contrast material: ISOVUE 370; Contrast volume: 60 ml; Contrast route: INTRAVENOUS (IV); COMPARISON: CT CHEST WO CON 06/30/2021 2:57 PM FINDINGS: Pulmonary arteries: The pulmonary arteries enhance appropriately with no evidence of pulmonary embolism. Aorta: The aorta enhances appropriately without evidence of dissection or aneurysm. No mediastinal hematoma. Thyroid: The visualized thyroid gland demonstrates no gross abnormality. Lungs: Mild bilateral bronchial wall thickening suggesting an element of bronchitis or bronchial edema with mild central bronchiectasis bilaterally which is slightly increased. Multifocal bilateral peripheral and central alveolar opacities, greater in the periphery and predominantly involving the mid and basilar lung wilkerson. This is consistent with multifocal pneumonia or changes of recent prior pneumonia. Multilobular/multifocal solid nodule or conglomeration of nodules in the posterior right lower lobe measuring up to 2.7 cm AP x 2.4 cm transverse by 1.2 cm craniocaudal, which is unchanged in size and distribution since 06/30/2021. For both low risk and high risk patients, consider CT at 3 months, PET/CT or biopsy. (Gerson et al., Fleischner Society, 2017). Pleural spaces: No pleural effusion. No pneumothorax. Heart: Heart size normal. No pericardial effusion. Mediastinal space: The esophagus is largely contracted but demonstrates no gross abnormality. Lymph nodes: No supraclavicular or axillary adenopathy. Mildly enlarged mediastinal nodes in the subcarinal distribution. Mildly enlarged bilateral hilar nodes. These are nonspecific. Spleen: 5 mm probable cyst in the anterior spleen is unchanged and does not require further evaluation. Bones/joints: No acute osseous abnormalities are identified. Soft tissues: The soft tissues of the chest wall demonstrate no acute abnormality. IMPRESSION: 1. No evidence of pulmonary embolism or aortic dissection. 2. Multifocal bilateral alveolar opacities which are new since 06/30/2021, consistent with multifocal pneumonia or changes of recent prior pneumonia. 3. Mild bronchial wall thickening suggesting an element of bronchitis or bronchial edema, with mild central bronchiectasis which appears slightly increased 4. Multifocal/multilobular solid nodule or conglomeration of nodules in the posterior right lower lobe is unchanged from 06/30/2021. Please see recommendations above. 5. Additional nonemergent findings detailed above.
--- NOTE | 2021-08-12 16:45 | ECG_ITS ---
APPROVED REPORT Exam: Resting ECG HR:98 bpm ECG Measurements Heart Rate 98 AXES FL 146 P 69 QRSd 84 QRS 11 QT 358 T 28 QTc 457 Conclusion Normal sinus rhythm Normal ECG Electronically signed by : Dev Crockett MD 08/13/2021 09:11:46
[2021-08-12 16:46] LABS: Basophils # 0.1 K/mm3 (0-0.2); Basophils % 1.5 % (0.1-2.0); Eosinophils # 0.1 K/mm3 (0.0-0.4); Eosinophils % 2.4 % (0.1-12.0); Hematocrit 43.6 % (42.0-52.0); Hemoglobin 14.7 g/dL (14.1-18.0); Lymphocytes # 1.3 K/mm3 (0.7-4.5); Lymphocytes % 39.1 % (10-50); Mean Corpuscular HGB Conc 33.7 g/dL (31.8-35.4); Mean Corpuscular Hemoglobin 32.3 pg (27.0-31.2); Mean Corpuscular Volume 95.7 fl (80-94); Mean Platelet Volume 7.9 fl (7.4-10.4); Monocytes # 0.6 K/mm3 (0.1-1.0); Monocytes % 16.8 % (1.7-9.3); Neutrophils # 1.3 K/mm3 (1.8-7.8); Neutrophils % 40.2 % (37.0-80.0); Platelet Count 307 K/mm3 (142-424); Red Blood Count 4.55 M/mm3 (4.60-6.20); Red Cell Distribution Width 14.2 % (11.5-17.5); White Blood Count 3.3 K/mm3 (4.8-10.8)
[2021-08-12 16:47] LABS: Chloride 98 mmol/L (98-107); Potassium 3.8 mmoL/L (3.5-5.1); Sodium 136 mmol/L (136-145)
[2021-08-12 16:50] LABS: Alanine Aminotransferase 25 U/L (12-78); Albumin Level 4.3 g/dl (3.5-5.0); Albumin/Globulin Ratio 1.4 (1.1-1.8); Alkaline Phosphatase 91 U/L (38-126); Aspartate Amino Transferase 27 U/L (17-59); Bilirubin,Total 0.5 mg/dl (0.2-1.3); Blood Urea Nitrogen 8 mg/dl (9-20); Calcium 9.4 mg/dl (8.4-10.2); Carbon Dioxide 27 mmol/L (22.0-30.0); Creatinine Clearance Estimated 130 mL/min (50-200); Estimated Glomerular Filt Rate 115 ml/min (>60); GFR (African American) 140 ML/MIN (>60); Glucose 121 mg/dl (74-100); Total Protein,Serum 7.3 g/dl (6.3-8.2)
[2021-08-12 17:15] LABS: Troponin I < 0.01 ng/ml (0.00-0.034)
[2021-08-12 17:58] LABS: Anion Gap 14.8 mEq/L (5-15)
--- NOTE | 2021-08-12 20:07 | HMH.EDGENADL ---
ED Disposition Clinical Impression: Post-acute sequelae of SARS-CoV-2 infection Disposition: Home, Self-Care Condition on Discharge: Stable Additional Instructions: If your condition worsens or any other concerns arise, please return to the emergency department. Otherwise, follow-up with your primary care doctor. Referrals: Dev Moseley MD [Primary Care Provider] - - Critical Care Critical Care Time: No Attestation: On 08/12/21, the high probability of a clinically significant, sudden or life threatening deterioration of the following system(s) required my full and direct attention, intervention and personal management. The time I documented below is in addition to time spent performing reported procedures but includes the following listed in this critical care notation. Medical Decision Making - Bruno Inquiry Pt receiving controlled substance: No Vital Signs: 08/12/21 16:13 08/12/21 20:50 Temperature 98.3 F 98.3 F Temperature Source Oral Pulse Rate 65 Pulse Rate [Right Radial] 107 H Respiratory Rate 20 16 Blood Pressure 119/75 Blood Pressure [Right Arm] 120/77 Blood Pressure Mean [Right Arm] 91 Blood Pressure Source [Right Arm] Automatic Cuff Blood Pressure Position [Right Arm] Sitting 02 Sat by Pulse Oximetry 99 Oxygen Delivery Method Nasal Cannula Room Air Oxygen Flow Rate (LPM) 2 - Lab Data Lab Results 08/12/21 16:28: WBC 3.3 L, RBC 4.55 L, Hgb 14.7, Hct 43.6, MCV 95.7 H, MCH 32.3 H, MCHC 33.7, RDW 14.2, Plt Count 307, MPV 7.9, Neut % (Auto) 40.2, Lymph % (Auto) 39.1, [place] % (Auto) 16.8 H, Eos % (Auto) 2.4, Baso % (Auto) 1.5, Neut # (Auto) 1.3 L, Lymph # (Auto) 1.3, [place] # (Auto) 0.6, Eos # (Auto) 0.1, Baso # (Auto) 0.1 08/12/21 16:28: Sodium 136, Potassium 3.8, Chloride 98, Carbon Dioxide 27, Anion Gap 14.8, BUN 8 L, Creatinine 0.70, Estimated Creat Clear 130, Estimated GFR 115, Est GFR ( Amer) 140, Glucose 121 H, Calcium 9.4, Total Bilirubin 0.5, AST 27, ALT 25, Alkaline Phosphatase 91, Total Protein 7.3, Albumin 4.3, Globulin 3.0, Albumin/Globulin Ratio 1.4 08/12/21 16:28: Troponin I < 0.01 08/12/21 20:06: Troponin I < 0.01 Result diagrams: 08/12/21 16:28 08/12/21 16:28 Orders (Tests/Meds): ED MEDICATIONS Discontinued Medications Generic Name Dose Route Start Last Admin Trade Name Argelia PRN Reason Stop Dose Admin Iopamidol 60 ml 08/12/21 17:50 08/12/21 17:51 Iopamidol-370 (76%);100ml Bottle IV 08/12/21 17:51 60 ml ONCE ONE Administration Sodium Chloride 50 ml 08/12/21 17:50 08/12/21 17:51 0.9 % Sodium Chloride 50 Ml Vial IV 08/12/21 17:51 50 ml ONCE ONE Administration Medical Decision Narrative: Patient is a 61-year-old male presenting with concern for pulmonary embolus in the setting of a COVID-19 infection and persistent tachycardia. On initial evaluation, patient is hemodynamically stable and not in any acute distress. Patient has mild tachycardia with heart rate of 107, improved on reassessment. Patient was evaluated CBC, CMP, troponin, EKG and CT PE, which is negative for pulmonary embolus. Patient's scan shows bilateral opacities which are consistent with a recent COVID-19 infection. On reassessment, patient denies worsening symptoms and requests to be discharged. Given that he is remained stable, has had improving oxygen requirement in the last week or 2 and there is no acute or actionable pathology, patient is deemed for discharge at this time. Patient was counseled regarding return precautions and discharged in stable condition. General Adult HPI - General Chief complaint: Shortness of Breath/Dyspnea Stated complaint: [place] Bloos clot Time Seen by Provider: 08/12/21 16:35 Mode of Arrival: Ambulatory Limitations: No Limitations Description of Symptoms (Recalled from ER Triage Doc. by RN): Pt sent to ER for evaluation for PE per PCP, r/t 2 day hx of episodes of tachycardia. Pt is approx 1 month post covid, pt has been wea
[2021-08-12 20:42] LABS: Troponin I < 0.01 ng/ml (0.00-0.034)
[2021-08-12 20:50] VITALS: BP 119/75; PULSE 65; RESP 16; TEMP 36.8; O2SAT 98
== END 2021-08-12 20:57 | disposition home or self-care (01) ==
PROVIDERS: Emergency Provider Emergency Medicine; PCP Family Medicine
DX: U09.9 Post COVID-19 condition, unspecified (principal); R06.02 Shortness of breath; Z99.81 Dependence on supplemental oxygen; I10 Essential (primary) hypertension; J44.9 Chronic obstructive pulmonary disease, unspecified; Z87.891 Personal history of nicotine dependence; E78.5 Hyperlipidemia, unspecified; Z79.899 Other long term (current) drug therapy
CPT/HCPCS: 71275; 80053; 84484; 85025; 93005; 96366; 96375; 99284; Q9967

== ENCOUNTER → 2021-08-26 08:09 | Outpatient (CLI) | payer OTHER, SELFPAY | PROVIDERS: PCP Family Medicine; Visit Provider Internal Medicine Pulmonary Disease | DX: R06.09 Other forms of dyspnea (principal) | CPT/HCPCS: 94762 ==

== ENCOUNTER → 2021-10-24 09:39 | Outpatient (CLI) | payer OTHER, SELFPAY ==
[2021-10-24 10:30] VITALS: PULSE 102; PULSE 99
== END ==
PROVIDERS: PCP Family Medicine; Visit Provider Internal Medicine Pulmonary Disease
DX: R06.00 Dyspnea, unspecified (principal)
CPT/HCPCS: 94060; 94618; 94640; 94727; 94729

== ENCOUNTER → 2021-11-23 09:27 | Outpatient (CLI) | payer OTHER, SELFPAY | PROVIDERS: PCP Family Medicine; Visit Provider Nurse Practitioner Family | DX: R06.00 Dyspnea, unspecified (principal); R07.89 Other chest pain; R00.2 Palpitations; R00.0 Tachycardia, unspecified; R94.31 Abnormal electrocardiogram [ECG] [EKG]; U09.9 Post COVID-19 condition, unspecified | CPT/HCPCS: 93270 ==

== ENCOUNTER → 2021-11-30 11:51 | Outpatient (CLI) | payer OTHER, SELFPAY ==
--- NOTE | 2021-11-30 | CA_ITS ---
APPROVED REPORT Exam: Pharmacologic Technologist: Blanca Simmons, HR: 73 bpm BP: 131/85 mmHg Rhythm: NSR Medical History Medical History: HTN, Hyperlipidemia Medications: Spiriva,,,,, Aspirin,,,,, Losartan,,,,, Duoneb,,,,, Albuterol,,,,, Montelukast,,,,, Ibuprofen,,,,, DulOXETINE,,,,, GlUCOsamine,,,,, AZelastine,,,,, DOxycycline,,,,, Budesonide,,,,, Allergies: No known drug allergies Cardiac Risk Factors: HTN, Hyperlipidemia, FHX of CAD, , Smoking Stress Test Details Test: LEXISCAN HR Resting HR: 74 bpm Max Heart Rate (APMHR): 161.693386 bpm Max HR Achieved: 117 bpm Target HR (85% APMHR): 136.095038 bpm % of APMHR: 72.67 Recovery HR: 87 bpm BP Resting BP: 131/85 mmHg Max BP: 132/87 mmHg Recovery BP: 129.0/89.0 mmHg ECG Resting ECG: NSR Medications Administered Albuterol ( mg at ) Clinical Reason for Termination: Completed Protocol Exercise duration: 04:01 min Highest Stage Achieved: Exercise capacity: 1.0 METs Stress ECG Conclusion NO CP. <1.[address] SEGMENT CHANGES NON DIAGNOSTIC Electronically signed by : Arnaud Schulte MD 11/30/2021 20:42:46
--- NOTE | 2021-11-30 12:15 | NM_ITS ---
APPROVED REPORT Exam: Nuclear Stress Test Indication: HTN, FORMER TOB USER, C.P., SOB, PALPITATIONS, SYNCOPE, FATIGUE Patient Location: Outpatient Stress Tech: [facility] Tech:Marianna Suggs DERICK RT (R)(N)(M) Ht: 5 ft 10 in Wt: 190 lbs HR: 73 bpm BP: 131/85 mmHg BSA: 2.04 m2 BMI: 27.2 History: HTN, FORMER TOB USER, C.P., SOB, PALPITATIONS, SYNCOPE, FATIGUE Procedure: Patient received a 0.4 mg of intravenous Lexiscan, resting heart rate 73 bpm, resting blood pressure 131/85 mmHg, with Lexiscan maximum heart rate achived was 106 bpm which is Less than 85 % of the maximum predicted heart rate and blood pressure was 132/87 mmHg. With Lexiscan, patient denied any complaint of chest pain. Electrocardiogram Resting electrocardiogram shows sinus rhythm, with Lexiscan there is less than 1.[address] segment depression noted from the baseline EKG. The EKG portion of the Lexiscan is nondiagnostic. Cardiac Stress and Resting SPECT Images: Cardiac Stress and Resting SPECT images were obtained using technetium 99m Myoview 30.0 mCi stress and 10.73 mCi at rest. Gated SPECT for analysis of segmental wall motion and calculation of the ejection fraction also done. Prone images were also obtained. Cardiac stress and resting SPECT images show reversible ischemia involving the inferior apical wall, computer derived ejection fraction is 47%, with no regional wall motion abnormality, there is transient ischemic dilatation of the left ventricle seen. Conclusion: 1. The EKG portion of the Lexiscan is nondiagnostic. 2. Scintigraphic evidence of reversible ischemia involving the inferior apical wall, computer derived ejection fraction is 47% with no regional wall motion abnormality, right ventricle is normal size and contractility, there is transient ischemic dilatation of the left ventricle seen. 3. Abnormal Lexiscan Myoview study. Electronically signed by : Arnaud Schulte MD 11/30/2021 20:55:20
--- NOTE | 2021-11-30 14:10 | CA_ITS ---
APPROVED REPORT EXAM: Comprehensive 2D, Doppler, and color-flow Echocardiogram Make Up Arranger: Joyce Pittman CRT Ht: 5 ft 10 in Wt: 190lbs BSA: 2.04 BP: 128/72 mmHg Indications: Chest Pain, COPD, Shortness of Breath, Atrial Fibrillation, Palpitations, Peripheral Edema, Hyperlipidemia, Hypertension/HDD 2D Dimensions Left Atrium 3.38 cm LA Volume 44.30 mL LVOT 2.06 cm (M/F) 1.5-2.5 LA Volume Index 21.70 mL/m2 (M/F) 16-34 M-Mode Dimensions RVDd 3.77 cm (0.9-2.6) LA Diam 3.55 cm (1.9-4.0) LVDd 4.94 cm (3.5-5.7) Ao Diam 3.11 cm (2.0-3.7) LVDs 3.61 cm (3.5-5.7) IVSd 1.08 cm (0.6-1.1) PWd 1.00 cm (0.6-1.1) EF (Teich) 52.30% EPSs 0.48 cm FS 26.90% EDV (Teich) 115.00 mL TAPSE 2.66 (<1.7) ESV (Teich) 54.80 mL LV Diastology E Decel Time 317.00 (160-240 msec) E/A Ratio 1.02 MED E' 5.70 (< 7 cm/sec) MED A' 9.10 cm/s E'/MED E' Ratio 8.37 (>14) LAT E' 10.20 (<10 cm/sec) LAT A' 9.80 cm/s E/LAT E' Ratio 4.68 (>14) Aortic Valve LVOT Max 80.00 (70-110 cm/s) LVOT VTI 16.55 cm AoV Peak Emerson. 121.00 (50-130 cm/s) AO Peak GR. 5.80 mmHg AO Mean GR. 2.90 (<5 mmHg) AO VTI 21.00 (18-25 cm) JUAN F (VTI) 2.63 (2.5-4.5 cm2) Mitral Valve MV A Velocity 47.00 (40-130 cm/s) E/A Ratio 1.02 MV Decel. Time 317.00 (160-240 ms) MV Mean Gr. 0.80 (<2mmHg) Pulmonary Valve PV Peak Velocity 92.00 (50-150 cm/s) Tricuspid Valve TR P. Velocity 158.00 cm/s RAP Estimate 10.00 mmHg RVSP 20.00 mmHg Left Ventricle Left atrium is mildly enlarged, left ventricle is normal size, mild concentric left ventricular hypertrophy, visually estimated ejection fraction 55% with no obvious regional wall motion abnormality, grade 1 diastolic dysfunction seen without tissue Doppler evidence of raise left atrial pressure. Right Ventricle Right atrium and right ventricle are mildly enlarged with normal contractility. Aortic Valve Aortic valve is minimally thickened and fibrosed, there is no aortic stenosis or aortic insufficiency. Mitral Valve Mitral valve is grossly normal, there is trace mitral regurgitation. Tricuspid Valve Tricuspid valve grossly normal, there is trace tricuspid regurgitation, tricuspid regurgitation jet velocity is inadequate for calculation of the right ventricular systolic pressure. Pulmonic Valve Pulmonic valve is poorly visualized. Great Vessels Aortic root is normal size. Inferior vena cava normal size with normal inspiratory collapse. Pericardium No significant pericardial effusion noted. Conclusion 1. Mild biatrial enlargement, normal left ventricular size, mild concentric left ventricular hypertrophy, visually estimated ejection fraction 55% with no regional wall motion abnormality, grade 1 diastolic dysfunction seen without tissue Doppler evidence of raise left atrial pressure. 2. Mildly enlarged right ventricle with normal contractility. 3. Trace mitral and tricuspid regurgitation. 4. No significant pericardial effusion. 5. Inferior vena cava normal size with normal inspiratory collapse. Electronically signed by : Arnaud Schulte MD 11/30/2021 21:18:14
== END ==
PROVIDERS: PCP Family Medicine; Visit Provider Nurse Practitioner Family
DX: R06.00 Dyspnea, unspecified (principal); R07.89 Other chest pain; R00.0 Tachycardia, unspecified; R00.2 Palpitations; R94.31 Abnormal electrocardiogram [ECG] [EKG]; U09.9 Post COVID-19 condition, unspecified
CPT/HCPCS: 78452; 93017; 93306; A9502; J2785

== ENCOUNTER 2021-12-09 08:00 | Outpatient (RCR) | payer OTHER, SELFPAY | END 2021-12-09 08:05 | disposition home or self-care (01) | LOC: OT 08:00 | PROVIDERS: Visit Provider Orthopaedic Surgery | DX: M25.512 Pain in left shoulder (principal); M25.511 Pain in right shoulder; G89.29 Other chronic pain | CPT/HCPCS: 97010; 97014; 97110; 97140; 97164; 97165; 97530; G0283 ==

== ENCOUNTER → 2021-12-12 10:55 | Outpatient (CLI) | payer OTHER, SELFPAY ==
[2021-12-12 11:30] LABS: Basophils # 0.1 K/mm3 (0-0.2); Basophils % 0.8 % (0.1-2.0); Eosinophils # 0.1 K/mm3 (0.0-0.4); Hemoglobin 15.4 g/dL (14.1-18.0); Lymphocytes # 1.6 K/mm3 (0.7-4.5); Mean Corpuscular HGB Conc 34.2 g/dL (31.8-35.4); Mean Corpuscular Hemoglobin 31.9 pg (27.0-31.2); Mean Corpuscular Volume 93.2 fl (80-94); Mean Platelet Volume 7.5 fl (7.4-10.4); Monocytes # 0.4 K/mm3 (0.1-1.0); Monocytes % 5.6 % (1.7-9.3); Neutrophils # 5.2 K/mm3 (1.8-7.8); Neutrophils % 70.6 % (37.0-80.0); Platelet Count 209 K/mm3 (142-424); Red Blood Count 4.83 M/mm3 (4.60-6.20); Red Cell Distribution Width 12.8 % (11.5-17.5); White Blood Count 7.4 K/mm3 (4.8-10.8)
[2021-12-12 12:07] LABS: Blood Urea Nitrogen 16 mg/dl (9-20); Calcium 9.1 mg/dl (8.4-10.2); Carbon Dioxide 27 mmol/L (22.0-30.0); Chloride 101 mmol/L (98-107); Estimated Glomerular Filt Rate 99 ml/min (>60); GFR (African American) 120 ML/MIN (>60); Glucose 126 mg/dl (74-100); Sodium 136 mmol/L (136-145)
== END ==
PROVIDERS: Visit Provider Urology
DX: Z01.812 Encounter for preprocedural laboratory examination (principal); Z11.52 Encounter for screening for COVID-19; R06.00 Dyspnea, unspecified; I20.8 Other forms of angina pectoris; R00.2 Palpitations; R00.0 Tachycardia, unspecified; I10 Essential (primary) hypertension; R94.31 Abnormal electrocardiogram [ECG] [EKG]; R94.39 Abnormal result of other cardiovascular function study; I63.9 Cerebral infarction, unspecified
CPT/HCPCS: 36415; 80048; 85025; C9803; U0003; U0005

== ENCOUNTER 2021-12-14 08:49 | Day surgery (SDC) | payer OTHER, SELFPAY ==
[2021-12-14] VITALS (11 sets, daily range): BP systolic 101–141; BP diastolic 65–95; PULSE 70–89; RESP 18–19; TEMP 36.7; O2SAT 95–98; BMI 27.9
--- NOTE | 2021-12-14 07:02 | IR_ITS ---
APPROVED REPORT Patient Location: Outpatient Corridor Redevelopment Manager: DERICK Funes RT (R) PROCEDURES Left heart catheterization Left ventriculogram Selective coronary angiogram INDICATION Abnormal Myoview, Angina pectoris, Risk factors for coronary disease Informed consent was obtained prior to the procedure. COMPLICATIONS None Estimated Blood Loss: Less than 10 mls TECHNIQUE One percent lidocaine used to anesthetize the right anterior aspect of the wrist. The right radial artery was accessed via the Seldinger technique. A 6 Arabic sheath was placed in the right radial artery. 2.5 mg of verapamil, 800 mcg of nitroglycerin, 1mg Lidocaine and 5000 U Heparin were given through the arterial sheath. The papa catheter was also used to perform left heart catheterization, left ventriculogram and selective coronary angiogram. At the end of the procedure the sheath was removed good hemostasis was achieved using Traclet band, patient was transferred to the postop holding area in stable condition. ANGIOGRAPHIC RESULTS The left main artery Normal The left anterior descending artery Has proximal 10% luminal irregularities. The entire LAD is widely patent however abnormally small in caliber with no focal stenosis The circumflex artery Nondominant normal The right coronary artery Dominant normal The REEVES ventriculogram reveals Normal 65% The left ventricular end-diastolic pressure 20 mmHg IMPRESSION Mild nonflow limiting coronary disease Normal ejection fraction Mild elevated LVEDP PLAN 1. Treat noncardiac chest pain or possibly treat for endothelial dysfunction 2. Risk factor modification Electronically signed by : Kevin Garza MD 12/14/2021 12:37:25
== END 2021-12-14 15:31 | disposition home or self-care (01) ==
LOC: CATHLAB 08:50
PROVIDERS: PCP Family Medicine; Visit Provider Internal Medicine
DX: I25.118 Atherosclerotic heart disease of native coronary artery with other forms of angina pectoris (principal); R94.39 Abnormal result of other cardiovascular function study; R94.31 Abnormal electrocardiogram [ECG] [EKG]; Z86.16 Personal history of COVID-19; I10 Essential (primary) hypertension; J44.9 Chronic obstructive pulmonary disease, unspecified; Z79.899 Other long term (current) drug therapy
CPT/HCPCS: 93458; 99152; C1725; C1769; J1644; Q9967

== ENCOUNTER → 2022-03-15 14:36 | Outpatient (CLI) | payer OTHER, SELFPAY ==
--- NOTE | 2022-03-15 14:41 | XR_ITS ---
FINAL REPORT CLINICAL HISTORY: . foot pain FINDINGS: AP, oblique and lateral views of the left foot were obtained. There is no prior exam for comparison. There is no acute fracture or dislocation. There is mild degenerative disease at the 1st MTP joint. Soft tissues are normal. IMPRESSION: There is mild degenerative disease at the 1st MTP joint. Reviewed, Interpreted and Dictated by Emma Couch MD Transcribed by Susannah Johns Authenticated by Emma Couch MD on 03/15/2022 04:07:19 PM [facility]
--- NOTE | 2022-03-15 14:41 | XR_ITS ---
FINAL REPORT CLINICAL HISTORY: . foot pain FINDINGS: AP, oblique and lateral views of the right foot were obtained. There is no prior exam for comparison. There is no acute fracture or dislocation. There is mild degenerative disease at the 1st MTP joint. Soft tissues are normal. IMPRESSION: Mild degenerative disease at the 1st MTP joint. Reviewed, Interpreted and Dictated by Emma Couch MD Transcribed by Susannah Johns Authenticated by Emma Couch MD on 03/15/2022 04:08:30 PM [facility]
== END ==
PROVIDERS: PCP Podiatrist; Visit Provider Podiatrist
DX: M79.672 Pain in left foot (principal); M79.671 Pain in right foot
CPT/HCPCS: 73630

== ENCOUNTER → 2022-04-03 14:41 | Outpatient (CLI) | payer OTHER, SELFPAY ==
--- NOTE | 2022-04-03 14:41 | CT_ITS ---
FINAL REPORT TECHNIQUE: Axial images were obtained from the lung apex to the mid abdomen by computed tomography. Coronal reformatted images were obtained. This study was performed with techniques to keep radiation doses as low as reasonably achievable, (ALARA). Individualized dose reduction techniques using automated exposure control or adjustment of mA and/or kV according to the patient's size were employed. CLINICAL HISTORY: Pulmonary nodule f/u COMPARISON: August 12, 2021 and June 30, 2021 FINDINGS: There is no axillary adenopathy. There is no hilar or mediastinal adenopathy. Heart size is normal. There is no pericardial or pleural effusion. Limited images of the upper abdomen are unremarkable. On the lung window images there is a lobular soft tissue nodular opacity in the posterior right lower lobe measuring 23 x 21 mm with a dominant central component which is visually stable since the prior examination. This is nonspecific but favors an infectious/inflammatory etiology over neoplasm. There are several calcified granulomas. There is overall improvement in the bilateral pulmonary opacities with persistent mild peripheral ground-glass opacities. No new mass or nodule is identified. IMPRESSION: Stable lobulated nodule opacity in the right lower lobe, favoring infectious/ inflammatory process over neoplasm. Consider additional follow-up in 12 months. Improved other pulmonary opacities. No new mass or nodule identified. Reviewed, Interpreted and Dictated by Haroon Scott III, MD Transcribed by Susannah Johns Authenticated and [facility]
== END ==
PROVIDERS: PCP Family Medicine; Visit Provider Internal Medicine Pulmonary Disease
DX: R91.8 Other nonspecific abnormal finding of lung field (principal)
CPT/HCPCS: 71250

== ENCOUNTER → 2022-06-03 11:42 | Outpatient (CLI) | payer OTHER, SELFPAY | PROVIDERS: PCP Nurse Practitioner Family; Visit Provider Surgery | DX: Z01.812 Encounter for preprocedural laboratory examination (principal); Z20.822 Contact with and (suspected) exposure to COVID-19; Z12.11 Encounter for screening for malignant neoplasm of colon | CPT/HCPCS: C9803; U0003; U0005 ==

== ENCOUNTER 2022-06-06 09:30 | Day surgery (SDC) | payer OTHER, SELFPAY ==
[2022-06-02 09:56] VITALS: BMI 25.9
[2022-06-06] VITALS (10 sets, daily range): BP systolic 109–153; BP diastolic 71–98; PULSE 59–80; RESP 15–18; TEMP 36.4–36.9; O2SAT 98–100
--- NOTE | 2022-06-06 10:00 | HMH.ANESCL ---
[facility] Anesthesia Checklist - Patient Identification Patient Identification: Arm Band - Structural Data Admitted From: Home Planned Operative Procedure/s: colonoscopy Consent for Planned Operative Procedure(s) Verified: Yes Verified Documents: Surgical Consent, History and Physical - NPO Status Verified Time NPO: 00:00 - Additional verifications Anesthesia Reactions: No - Airway Assessment C-Spine Mobility Assessed: Yes (mp2) TMJ Mobility Assessed: Yes Dentition: Good Dentition - Neurological Assessment Level of Consciousness: Awake, Alert - Anesthesia Plan Anesthesia Risk discussed: Yes Anesthesia Plan: Verified ASA Class: III Anesthesia Type: MAC [facility] History I have reviewed the patient's past medical history: Yes Medical History: Reports:: Chronic Obstructive Pulmonary Disease (COPD), Hyperlipidemia, Hypertension Denies:: Cancer, Diabetes Mellitus Type 1, Diabetes Mellitus Type 2, Internal Pacemaker, MRSA, Seizures *Have you ever received a pneumonia vaccine?: Yes *Have you received a flu vaccine this season?: Yes Other Medical History: Reports: Cataracts, Sinus Problems, Other Anesthesia experience/problems:: nac Other Surgeries: Yes: Cardiac Catheterization, Other. No: Pacemaker Amputation: No Fractures: No - *Social History Last grade of school completed: High school graduate Smoking Status: Current every day smoker Tobacco Type: smokeless tobacco # Packs/Day (cigarettes): 1 #Yrs smoked (if former smoker): 35 Alcohol Intake: never Substance Use Type: denies use *Occupational Status:: unemployed, disabled Housing: house Household Members: spouse *Travel in the last 8 weeks: None Family Hx:: Cancer, Diabetes, Heart Attack
--- NOTE | 2022-06-06 10:38 | HMH.SCOPE ---
- Procedure: Date: 06/06/22 Patient Date of :: 1960 Procedure Performed:: Colonoscopy with polypectomy Indications:: History of colon polyps. Colon polyps noted in September 2014 and again in October 2016. Performing Provider:: Silvio Norwood MD Referring Provider:: . Sedation:: Monitored anesthesia care Procedure:: After informed consent was obtained the patient was taken to the endoscopy suite. Sedation ensued after the patient was transferred to the left lateral decubitus position. Pulse, blood pressure, and oxygen saturation were monitored throughout the procedure. Digital rectal exam revealed no significant abnormality. The colonoscope was placed in position. The entire colon was evaluated. The colonoscope was carefully removed and the patient was transferred to recovery in stable condition. Please see findings and specimens below for detail. Findings:: Bowel preparation relatively fair Fairly significant tortuosity Polyps (see specimens) Specimens:: Large complex sessile lobulated right colon polyp (cold snare and cold biopsy forceps) Polyp at 20 cm (cold biopsy forceps) Recommendations:: Timing of repeat colonoscopy is pending pathology but likely be around 2-3 years secondary to size/nature of right colon polyp and tortuosity. Complications:: No immediate. Delayed flat/upright films ordered secondary to difficult polyp excision. Estimated blood obtained (mL): 1
--- NOTE | 2022-06-06 12:30 | XR_ITS ---
FINAL REPORT CLINICAL HISTORY: post-colonoscopy pain.. FINDINGS: ABDOMEN COMPLETE INCL CHEST The heart size is normal. The mediastinum is normal. There is mild right base atelectasis or scar. There is no pneumothorax. There is a nonspecific bowel gas pattern with scattered fluid levels. No abnormal calcification is seen. There are postoperative changes from fusion at L4-5. IMPRESSION: Right base atelectasis or scar. Reviewed, Interpreted and Dictated by Haroon Scott III, MD Transcribed by Ivanna Palafox Authenticated and [facility]
--- NOTE | 2022-06-06 14:31 | SUR.PHASEII ---
XR results relayed to MD Norwood. Pt is free to be d/c home. PIV removed and pt is getting dressed at this time.
== END 2022-06-06 14:30 | disposition home or self-care (01) ==
LOC: OUTP 09:31
PROVIDERS: PCP Nurse Practitioner Family; Visit Provider Surgery
PROC: 0DJD8ZZ Inspection of Lower Intestinal Tract, Via Natural or Artificial Opening Endoscopic (ICD-10-PCS; CPT 45380; principal; 2022-06-06 10:30)
DX: Z12.11 Encounter for screening for malignant neoplasm of colon (principal); K63.5 Polyp of colon; Z86.010 Personal history of colon polyps; I10 Essential (primary) hypertension; E78.5 Hyperlipidemia, unspecified; Z72.0 Tobacco use
CPT/HCPCS: 45380; 45385; 74021

== ENCOUNTER 2022-08-04 13:37 | Emergency (ER) | payer OTHER, SELFPAY ==
[2022-08-04 14:20] LABS: Adenovirus,PCR Not Detected (NotDetected); Bordetella Pertussis Not Detected (NotDetected); Chlamydophila Pneumoniae, PCR Not Detected (NotDetected); Coronavirus 19, PCR Not Detected (NotDetected); Coronavirus 229E Not Detected (NotDetected); Coronavirus NL63 Not Detected (NotDetected); Coronavirus OC43 Not Detected (NotDetected); Coronovirus HKU1,PCR Not Detected (NotDetected); Human Metapneumovirus Not Detected (NotDetected); Influenza A, PCR Not Detected (NotDetected); Influenza AH1, 2009 Not Detected (NotDetected); Influenza AH1, PCR Not Detected (NotDetected); Influenza AH3,PCR Not Detected (NotDetected); Influenza B, PCR Not Detected (NotDetected); Mycoplasma Pneumoniae, PCR Not Detected (NotDetected); Parainfluenza 1, PCR Not Detected (NotDetected); Parainfluenza 2, PCR Not Detected (NotDetected); Parainfluenza 3, PCR Not Detected (NotDetected); Parainfluenza 4, PCR Not Detected (NotDetected); Respiratory Syncytial Virus Not Detected (NotDetected)
[2022-08-04 14:25] VITALS: BP 133/88; PULSE 108; RESP 16; TEMP 36.8; O2SAT 97; BMI 26.4
[2022-08-04 14:33] LABS: UTC Strep Screen (Rapid) Negative (Negative)
--- NOTE | 2022-08-04 14:35 | EXP.UTC ---
Discharge Plan Disposition Patient Disposition: Home, Self-Care Condition: Good Prescriptions Prescriptions: New amoxicillin-pot clavulanate 875-125 mg Tablet 1 tab PO Q12H Qty: 20 0RF prednisone 20 mg tablet 20 mg PO BID 5 Days Qty: 10 0RF No Action famotidine [Acid Hot Strip Mill Inspector (famotidine)] 20 mg tablet 20 mg PO DAILYP PRN (Reason: Heartburn) duloxetine 30 mg capsule,delayed release(DR/EC) 60 mg PO DAILY hydroxyzine pamoate 25 mg capsule 25 mg PO DAILY gabapentin 100 mg capsule 100 mg PO TID Label Comments: TAKE 1 CAPSULE BY MOUTH THREE TIMES DAILY albuterol sulfate 90 mcg/actuation HFA aerosol inhaler 1 inh inhalation QID PRN (Reason: shortness of breath or wheezing) Qty: 8.5 12RF ipratropium-albuterol 0.5 mg-3 mg(2.5 mg base)/3 mL solution for nebulization 3 ml inhalation QID PRN (Reason: shortness of breath or wheezing) Qty: 90 6RF budesonide-formoterol [Symbicort] 160-4.5 mcg/actuation HFA aerosol inhaler 2 puff IH BID losartan 50 mg tablet 50 mg PO DAILY Qty: 30 2RF rosuvastatin 5 mg tablet 5 mg PO DAILY Qty: 30 2RF metoprolol succinate 25 mg tablet extended release 24 hr 25 mg PO DAILY Qty: 30 2RF furosemide 20 mg tablet 20 mg PO DAILY Qty: 30 2RF aspirin 81 MG tablet,delayed release (DR/EC) 81 mg PO DAILY omega-3 fatty acids-fish oil 1 EACH capsule 1 each PO DAILY montelukast 10 MG tablet 10 mg PO DAILY azelastine 137 MCG/0.137 ML bottle 2 spray intranasal BID Rx Instructions: administer into each nostril tiotropium bromide 5 CAP capsule, w/inhalation device 1 cap inhalation DAILY Rx Instructions: puncture 1 cap using device; one dose = 2 inhalations Referrals Follow up/Referrals: Evelia Jernigan APRN [Primary Care Provider] - See instructions Activity Restrictions/Add. Instructions Additional Instructions/Restrictions: Start antibiotic today. Be sure to complete entire prescription even if feeling better Monitor temp. Tylenol every 4 hours as needed and / or ibuprofen every 6 hours as needed ( As long as your primary care physician has told you that it ok to take both. For fever/aches/pains ER if no less than 101 despite Tylenol or Motrin Humidifier/vaporizer or hot steamy shower Inhaler every 4-6 hours as needed like we discussed. If unsure how to use it, ask pharmacist to demonstrate how. Should help open airways and improve cough, wheezing, and shortness of breath Mucinex during the day for your cough and cough suppressant only at night. Be sure to drink lots of water. *Tessalon Perles will not cause drowsiness but use at bedtime to help stop cough so that you may get some rest. *Start steroid today. Helps with inflammation therefore, cough and wheezing. Follow directions on the package. Reviewed side effects. Patient reports taking them before. Follow up IMMEDIATELY for new or worsening of symptoms OR no noticeable improvement over the next 48-72 hours. 911 immediately for any life threatening symptoms such as chest pain or difficulty breathing Clinical Impressions Clinical Impression: Bronchitis Sinusitis Qualifiers: Sinusitis location: unspecified location Chronicity: unspecified Qualified Code(s): J32.9 - Chronic sinusitis, unspecified Discharge ED Provider: Susanne So [facility] [place] HPI General Stated complaint: fever/chills, sore throat, cough, congestion Mode of Arrival: Ambulatory Source of Information: Patient Limitations: No Limitations Time Seen by Provider: 08/04/22 14:35 Description of Symptoms (Recalled from Triage Doc. by RN): pt comes in with c/o headache, sinus infection, nasal drainage, left ear pain and pressure, productive cough. HEENT Symptoms (Recalled from RN notes): Yes Resp Symptoms (Recalled from RN notes): Yes Skin Symptoms (Recalled from RN notes): No MS Symptoms (Recalled
[2022-08-04 14:53] VITALS: BP 133/88; PULSE 108; RESP 16; TEMP 36.8
[2022-08-04 17:29] LABS: Rhinovirus/Enterovirus Detected (NotDetected)
== END 2022-08-04 14:53 | disposition home or self-care (01) ==
PROVIDERS: Emergency Provider Nurse Practitioner; PCP Nurse Practitioner Family
DX: J32.9 Chronic sinusitis, unspecified (principal); J40 Bronchitis, not specified as acute or chronic
CPT/HCPCS: 87581; 87632; 87798; 87880; 99212; C9803; G0463; U0003; U0005

== ENCOUNTER 2022-09-10 10:08 | Emergency (ER) | payer MEDICARE, OTHER, SELFPAY ==
--- NOTE | 2022-09-10 12:07 | EXP.UTC ---
Discharge Plan Disposition Patient Disposition: Home, Self-Care Condition: Good Prescriptions Prescriptions: New azithromycin [Zithromax] 250 mg tablet 250 mg PO UD DOSE PK Qty: 6 0RF Rx Instructions: Take two (2) tablets today, then one (1) tablet days #2 thru #5 benzonatate [benzonatate] 100 mg capsule 100 mg PO TIDP PRN (Reason: Cough) Qty: 30 0RF prednisone 10 mg tablet 10 mg PO DIRECTED 9 Days Qty: 21 0RF Rx Instructions: Take 4 tablets daily for 3 days, then take 2 tablets daily for 3 days, then take 1 tablet daily for 3 days, then stop. oseltamivir [Tamiflu] 75 mg capsule 75 mg PO BID Qty: 10 0RF No Action famotidine [Acid Energy Audit Advisor (famotidine)] 20 mg tablet 20 mg PO DAILYP PRN (Reason: Heartburn) duloxetine 30 mg capsule,delayed release(DR/EC) 60 mg PO DAILY hydroxyzine pamoate 25 mg capsule 25 mg PO DAILY gabapentin 100 mg capsule 100 mg PO TID Label Comments: TAKE 1 CAPSULE BY MOUTH THREE TIMES DAILY albuterol sulfate 90 mcg/actuation HFA aerosol inhaler 1 inh inhalation QID PRN (Reason: shortness of breath or wheezing) Qty: 8.5 12RF ipratropium-albuterol 0.5 mg-3 mg(2.5 mg base)/3 mL solution for nebulization 3 ml inhalation QID PRN (Reason: shortness of breath or wheezing) Qty: 90 6RF budesonide-formoterol [Symbicort] 160-4.5 mcg/actuation HFA aerosol inhaler 2 puff IH BID losartan 50 mg tablet 50 mg PO DAILY Qty: 30 2RF rosuvastatin 5 mg tablet 5 mg PO DAILY Qty: 30 2RF metoprolol succinate 25 mg tablet extended release 24 hr 25 mg PO DAILY Qty: 30 2RF furosemide 20 mg tablet 20 mg PO DAILY Qty: 30 2RF aspirin 81 MG tablet,delayed release (DR/EC) 81 mg PO DAILY omega-3 fatty acids-fish oil 1 EACH capsule 1 each PO DAILY montelukast 10 MG tablet 10 mg PO DAILY azelastine 137 MCG/0.137 ML bottle 2 spray intranasal BID Rx Instructions: administer into each nostril tiotropium bromide 5 CAP capsule, w/inhalation device 1 cap inhalation DAILY Rx Instructions: puncture 1 cap using device; one dose = 2 inhalations amoxicillin-pot clavulanate 875-125 mg Tablet 1 tab PO Q12H Qty: 20 0RF prednisone 20 mg tablet 20 mg PO BID 5 Days Qty: 10 0RF Referrals Follow up/Referrals: Yony Andrews MD [Primary Care Provider] - See instructions Activity Restrictions/Add. Instructions Additional Instructions/Restrictions: Drink plenty of fluids. Take tylenol or ibuprofen for pain or fever. Take the medications as directed. Follow up with your regular doctor. GO TO THE ER FOR ANY WORSENING SYMPTOMS Clinical Impressions Clinical Impression: COPD (chronic obstructive pulmonary disease), Influenza A Instructions Patient Instructions: Influenza, DI for Chronic Obstructive Pulmonary Disease, Oseltamivir Discharge ED Provider: Frederick Delaney [facility] General Stated complaint: Congestion, (wants tested for flu, his has it Time Seen by Provider: 09/10/22 12:07 History of Present Illness Provider Complaint: He states that for the past 2 days he has ran a fever, had body aches, chills, and a cough. His has influenza a at this time. Related Data Home Medications Medication Instructions Recorded Confirmed famotidine 20 mg tablet (Acid 20 mg PO DAILYP PRN Heartburn 12/20/20 08/04/22 Energy Audit Advisor (famotidine)) omega-3 fatty acids-fish oil 340 1 each PO DAILY Supplement 07/10/21 08/04/22 mg-1,000 mg capsule hydroxyzine pamoate 25 mg capsule 25 mg PO DAILY NERVES 08/18/21 08/04/22 azelastine 137 mcg (0.1 %) nasal 2 spray intranasal BID Breathing 12/14/21 08/04/22 spray aerosol problems montelukast 10 mg tablet 10 mg PO DAILY ALLERGIES 12/14/21 08/04/22 tiotropium bromide 18 mcg capsule 1 cap inhalation DAILY Breathing 12/14/21 08/04/22 with inhalation device problems duloxetine 30 mg capsule,delayed 60 mg PO DAILY mood 01/30/22 1
[2022-09-10 12:08] VITALS: BP 139/86; PULSE 107; RESP 18; TEMP 37.6; O2SAT 97; BMI 25.7
[2022-09-10 12:18] LABS: UTC Influenza A Antigen Positive (Negative); UTC Influenza B Antigen Negative (Negative)
[2022-09-10 12:32] VITALS: BP 139/86; PULSE 107; RESP 18; TEMP 37.6
== END 2022-09-10 12:35 | disposition home or self-care (01) ==
PROVIDERS: Emergency Provider Nurse Practitioner Family; PCP Family Medicine
DX: J10.1 Influenza due to other identified influenza virus with other respiratory manifestations (principal); R07.9 Chest pain, unspecified; R00.2 Palpitations; R94.31 Abnormal electrocardiogram [ECG] [EKG]; R94.39 Abnormal result of other cardiovascular function study; R50.9 Fever, unspecified; R05.9 Cough, unspecified; R11.0 Nausea; I50.30 Unspecified diastolic (congestive) heart failure; I25.119 Atherosclerotic heart disease of native coronary artery with unspecified angina pectoris; R12 Heartburn; J44.9 Chronic obstructive pulmonary disease, unspecified; F17.290 Nicotine dependence, other tobacco product, uncomplicated; Z79.51 Long term (current) use of inhaled steroids; Z79.52 Long term (current) use of systemic steroids; Z79.82 Long term (current) use of aspirin; Z79.899 Other long term (current) drug therapy; Z88.6 Allergy status to analgesic agent; Z88.8 Allergy status to other drugs, medicaments and biological substances
CPT/HCPCS: 87804; 99213; G0463

== ENCOUNTER → 2022-10-11 12:51 | Outpatient (CLI) | payer MEDICARE, OTHER, SELFPAY ==
[2022-10-11 13:30] VITALS: PULSE 75; PULSE 80
== END ==
PROVIDERS: PCP Family Medicine; Visit Provider Internal Medicine Pulmonary Disease
DX: J44.9 Chronic obstructive pulmonary disease, unspecified (principal)
CPT/HCPCS: 94060; 94640

== ENCOUNTER → 2023-02-28 10:11 | Outpatient (CLI) | payer MEDICARE, OTHER, SELFPAY ==
--- NOTE | 2023-02-28 10:14 | CT_ITS ---
FINAL REPORT TECHNIQUE: Oral and IV contrast enhanced exam. This study was performed with techniques to keep radiation doses as low as reasonably achievable (ALARA). Individualized dose reduction techniques using automated exposure control or adjustment of mA and/or kV according to the patient's size were employed. CLINICAL HISTORY: ABN WALL LUMP FINDINGS: Abdomen: Lung bases are clear. The gallbladder is unremarkable. Liver has an unremarkable CT appearance. The spleen, pancreas and adrenal glands are unremarkable. Kidneys show no mass or obstruction. No abdominal wall mass or hernia is identified. No bowel obstruction or fluid collection is seen. Pelvis: The appendix is normal. The prostate is mildly enlarged. There are tiny bilateral inguinal hernias containing fat. Pelvic bowel loops are unremarkable. No fluid collection or adenopathy is seen. IMPRESSION: No abdominal wall mass or hernia. Tiny bilateral inguinal hernias. Reviewed, Interpreted and Dictated by Irwin Baker MD Transcribed by Ivanna Palafox Authenticated and [facility]
== END ==
LOC: RAD 10:11
PROVIDERS: PCP Family Medicine; Visit Provider Nurse Practitioner Family
DX: R22.2 Localized swelling, mass and lump, trunk (principal)
CPT/HCPCS: 74177; Q9967

== ENCOUNTER → 2023-04-18 15:07 | Outpatient (CLI) | payer MEDICARE, OTHER, SELFPAY ==
--- NOTE | 2023-04-18 15:07 | CT_ITS ---
FINAL REPORT TECHNIQUE: Axial images were obtained from the lung apex to the mid abdomen by computed tomography. This study was performed with techniques to keep radiation doses as low as reasonably achievable (ALARA). Individualized dose reduction techniques using automated exposure control or adjustment of mA and/or kV according to the patient's size were employed. CLINICAL HISTORY: lung cancer screening, former smoker, quit 10 yrs ago, smoked 1 1/2 pks per day x 35 yrs empysema family hx of lung ca COMPARISON: 04/03/2022 and 08/12/2021 FINDINGS: CHEST CT LOW DOSE CTDI vol (mGy): 2.90 DLP (mGy-cm): 109.68 There is mild left coronary artery calcification. There is no axillary adenopathy. There is no hilar or mediastinal adenopathy. The heart is normal in size. There is no pericardial or pleural effusion. There are nodular opacities in the posterior right lower lobe measuring up to 12 mm which are stable, most likely represent prior granulomatous disease. No new mass or suspicious nodule is identified. There is mild scarring and mild emphysema. Limited images of the upper abdomen are unremarkable. IMPRESSION: Stable right lower lobe nodular opacities, most likely represent prior granulomatous disease. Lung RADS category 2. Recommend 12 month follow-up low-dose chest CT. Reviewed, Interpreted and Dictated by Haroon Scott III, MD Transcribed by Ivanna Palafox Authenticated and [facility]
== END ==
PROVIDERS: PCP Family Medicine; Visit Provider Internal Medicine Pulmonary Disease
DX: Z87.891 Personal history of nicotine dependence (principal); Z12.2 Encounter for screening for malignant neoplasm of respiratory organs
CPT/HCPCS: 71271

== ENCOUNTER 2024-04-09 14:04 | Emergency (ER) | payer MEDICARE, SELFPAY ==
[2024-04-09 14:40] VITALS: BP 129/85; PULSE 89; RESP 20; TEMP 36.8; O2SAT 96; BMI 26.4
[2024-04-09 14:53] LABS: UTC Strep Screen (Rapid) Negative (Negative)
--- NOTE | 2024-04-09 15:01 | ED_ITS ---
Discharge Plan Disposition Patient Disposition: Home, Self-Care Condition: Good Prescriptions Prescriptions: New azithromycin [Zithromax] 250 mg tablet 250 mg PO UD DOSE PK Qty: 6 0RF Rx Instructions: Take two (2) tablets today, then one (1) tablet days #2 thru #5 benzonatate 100 mg capsule 100 mg PO TIDP PRN (Reason: Cough) Qty: 30 0RF prednisone 10 mg tablet 10 mg PO DIRECTED 9 Days Qty: 21 0RF Rx Instructions: Take 4 tablets daily for 3 days, then take 2 tablets daily for 3 days, then take 1 tablet daily for 3 days, then stop. No Action famotidine [Acid Parking Meter Servicer (famotidine)] 20 mg tablet 20 mg PO DAILYP PRN (Reason: Heartburn) duloxetine 30 mg capsule,delayed release(DR/EC) 60 mg PO DAILY hydroxyzine pamoate 25 mg capsule 25 mg PO DAILY ipratropium-albuterol 0.5 mg-3 mg(2.5 mg base)/3 mL solution for nebulization 3 ml inhalation QID PRN (Reason: shortness of breath or wheezing) Qty: 90 6RF clindamycin phosphate 1 % gel 1 applic topical .prn glucosamine-chondroitin 750-600 mg tablet PO .gigi metoprolol succinate 50 mg tablet extended release 24 hr 50 mg PO BID Qty: 180 3RF albuterol sulfate 90 mcg/actuation HFA aerosol inhaler 1 inh inhalation QID PRN (Reason: shortness of breath or wheezing) Qty: 8.5 12RF azelastine 137 mcg (0.1 %) aerosol,spray 1 spray intranasal .q6 PRN (Reason: allergy symptoms) 90 Days Qty: 30 3RF Rx Instructions: administer into each nostril montelukast 10 mg tablet 10 mg PO QPM 90 Days Qty: 90 2RF furosemide 40 mg tablet See Rx Instructions .ROUTE .COMPLEX Qty: 90 3RF Dose Instruction: TAKE 1 TABLET BY MOUTH DAILY FOR CHF Rx Instructions: TAKE 1 TABLET BY MOUTH DAILY FOR CHF rosuvastatin 5 mg tablet 5 mg PO DAILY Qty: 30 5RF losartan 50 mg tablet 50 mg PO DAILY Qty: 30 5RF budesonide-formoterol [Symbicort] 160-4.5 mcg/actuation HFA aerosol inhaler See Rx Instructions .ROUTE .COMPLEX Qty: 33 0RF Dose Instruction: Inhale 2 puffs by mouth twice daily Rx Instructions: Inhale 2 puffs by mouth twice daily aspirin 81 MG tablet,delayed release (DR/EC) 81 mg PO DAILY omega-3 fatty acids-fish oil 1 EACH capsule 1 each PO DAILY montelukast 10 MG tablet 10 mg PO DAILY azelastine 137 MCG/0.137 ML bottle 2 spray intranasal BID Rx Instructions: administer into each nostril tiotropium bromide 5 CAP capsule, w/inhalation device 1 cap inhalation DAILY Rx Instructions: puncture 1 cap using device; one dose = 2 inhalations Referrals Follow up/Referrals: Yony Andrews MD [Primary Care Provider] - See instructions Activity Restrictions/Add. Instructions Additional Instructions/Restrictions: Drink plenty of fluids. Take tylenol or ibuprofen for pain or fever. Take the medications as directed. Follow up with your regular doctor. GO TO THE ER FOR ANY WORSENING SYMPTOMS Don't start the oral steroids (prednisone) until tomorrow since you had the shot her Clinical Impressions Clinical Impression: Sinusitis, COPD exacerbation Instructions Patient Instructions: DI for Sinusitis Discharge ED Provider: Frederick Delaney [facility] General Stated complaint: headache, sinus pressure, ears popping Time Seen by Provider: 04/09/24 15:00 Related Data Home Medications Medication Instructions Recorded Confirmed famotidine 20 mg tablet (Acid 20 mg PO DAILYP PRN Heartburn 12/20/20 11/01/23 Parking Meter Servicer (famotidine)) omega-3 fatty acids-fish oil 340 1 each PO DAILY Supplement 07/10/21 11/01/23 mg-1,000 mg capsule hydroxyzine pamoate 25 mg capsule 25 mg PO DAILY NERVES 08/18/21 11/01/23 azelastine 137 mcg (0.1 %) nasal 2 spray intranasal BID Breathing 12/14/21 11/01/23 spray aerosol problems montelukast 10 mg tablet 10 mg PO DAILY ALLERGIES 12/14/21 11/01/23 tiotropium bromide 18 mcg capsule 1 cap inhalation DAILY Breathing 12/14/21 11/01/23 with inhalation device problems duloxetine 30 mg capsule,delayed 60 mg PO DAILY mood 01/30/22 11/01/23 release aspirin 81 mg tablet,delayed 81 mg PO DAILY HEART HEALTH 06/02/22 11/01/23 release clindamycin phosphate 1 % topical 1 applic topical .prn 04/25/23 11/01/23 gel glucosamine-chondroitin 750 mg-600 tab PO .uy 04/25/23 11/01/23 mg tablet Previous Rx's Medication Instructions Recorded ipratropium 0.5 mg-albuterol 3 mg 3 ml inhalation QID PRN shortness 11/01/21 (2.5 mg base)/3 mL nebulization of breath or wheezing #90 mL soln metoprolol succinate 50 mg 50 mg PO BID High blood pressure 11/01/23 tablet,extended release 24 hr #180 tabs albuterol sulfate 90 mcg/actuation 1 inh inhalation QID PRN shortness 01/02/24 aerosol inhaler of breath or wheezing #8.5 grams azelastine 137 mcg (0.1 %) nasal 1 spray intranasal .q6 PRN allergy 01/02/24 spray aerosol symptoms 90 days #30 mL montelukast 10 mg tablet 10 mg PO QPM 90 days #90 tabs 01/02/24 furosemide 40 mg tablet See Rx Instructions .Route 02/18/24 .COMPLEX #90 tabs losartan 50 mg tablet 50 mg PO DAILY High blood pressure 03/18/24 #30 tabs rosuvastatin 5 mg tablet 5 mg PO DAILY Cholesterol #30 tabs 03/18/24 Symbicort 160 mcg-4.5 See Rx Instructions .Route 03/28/24 mcg/actuation HFA aerosol inhaler .COMPLEX #33 grams (budesonide-formoterol) azithromycin 250 mg tablet 250 mg PO UD DOSE PK #6 tabs 04/09/24 (Zithromax) benzonatate 100 mg capsule 100 mg PO TIDP PRN Cough #30 caps 04/09/24 prednisone 10 mg tablet 10 mg PO DIRECTED 9 days #21 04/09/24 tabs Allergies Allergy/AdvReac Type Severity Reaction Status Date / Time meloxicam AdvReac Intermediate raises Verified 11/01/23 13:35 blood pressure acetaminophen [From Percocet] AdvReac Mild bad dreams Verified 11/01/23 13:35 oxycodone [From Percocet] AdvReac Mild bad dreams Verified 11/01/23 13:35 PFSH COUNTS INCLUDE 234 BEDS AT THE [facility] Disclaimer: The information contained in this section may have been updated after the patient was seen, as this information can be updated by other users. Medical History Abnormal cardiovascular stress test Abnormal electrocardiography Allergic rhinitis, unspecified Asthma-COPD overlap syndrome Atypical angina CAD (coronary artery disease) Chest pain COPD (chronic obstructive pulmonary disease) Dyspnea Dyspnea on exertion Elevated left ventricular end-diastolic pressure (LVEDP) History of 2019 novel coronavirus disease (COVID-19) History of colon polyps Moderate persistent asthma Palpitations Pulmonary emphysema Pulmonary nodule 1 cm or greater in diameter Screening for lung cancer Tachycardia Surgical History H/O hernia repair History of arthroscopy of shoulder History of colonoscopy History of lung biopsy History of tonsillectomy Family History Other Cancer Diabetes Heart attack Social History Smoking Status: Former smoker smoking status stop date: 04/24/2013 second hand exposure: No alcohol intake: never substance use type: denies use current occupational status: unemployed and disabled Travel in the last 8 weeks: None household members: spouse housing: house current occupational exposures/hazards: No caffeine: Yes ROS Obtained: Yes All systems reviewed & no additional complaints except as documented Constitutional Constitutional: Reports poor appetite Eyes Eyes: Reports system reviewed and no additional complaints, except as documented ENT Ears, Nose, Mouth, and Throat: Reports as per HPI Cardiovascular Cardiovascular: Reports system reviewed and no additional complaints, except as documented and Denies chest pain Respiratory Respiratory: Denies shortness of breath, Reports chest congestion, Reports cough, Denies stridor and Denies wheezing Gastrointestinal Gastrointestingal: Reports system reviewed and no additional complaints, except as documented; Denies abdominal pain, diarrhea or vomiting Musculoskeletal Musculoskeletal: Reports system reviewed and no additional complaints, except as documented and Denies arthralgias Integumentary/Breasts Skin/Breast: Reports system reviewed and no additional complaints, except as documented and Denies rash Neurologic Neurologic: Denies paresthesias Allergic/Immunologic Allergic/Immunologic: Denies wheezing Physical Exam General General appearance: alert and in no apparent distress Eye Eye exam: Present normal appearance, PERRL and EOMI ENT ENT exam: Present mucous membranes moist and normal external ear exam Expanded ENT Exam External ear exam: Present normal external inspection TM/Canal exam: Bilateral TM: erythema and bulging Nose exam: Absent sinus tenderness Nasal speculum exam: Bilateral: normal Mouth exam: Present normal external inspection; Absent drooling Teeth exam: Present normal inspection Throat exam: Present tonsillar erythema and tonsillomegaly Neck Neck exam: Present normal inspection, full ROM and trachea midline; Absent tenderness, lymphadenopathy or thyromegaly Chest Chest inspection: Present normal inspection and symmetric chest wall rise; Absent tenderness or rash Respiratory Respiratory exam: Present normal lung sounds bilaterally; Absent respiratory distress, wheezes, stridor or accessory muscle use Cardiovascular Cardiovascular exam: Present regular rate, normal rhythm and normal heart sounds Abdominal Exam Abdominal exam: Present soft; Absent distention, tenderness, guarding, rebound or rigidity Extremities Exam Extremities exam: Present normal inspection, full ROM and normal capillary refill; Absent tenderness or calf tenderness Back Exam Back exam: Present normal inspection and full ROM; Absent tenderness Neurological Exam Neurological exam: Present alert and oriented X3 Psychiatric Psychiatric exam: Present normal affect and normal mood Skin Skin exam: Present warm, dry, intact and normal color Lymphatic Lymphatic Findings: no adenopathy Medical Decision Making Medical Records Medical records reviewed: No I reviewed the patient's medical records. Bruno Inquiry Pt receiving controlled substance: No Lab Data Lab Results 04/09/24 14:44: Strep Scn Rapid Clinic Negative Orders (Tests/Meds): ORDERS Category Date Time Status Strep Screen Confirmation Stat Micro 04/09/24 14:44 Received
[2024-04-09] MEDS: DEXAMETHASONE 4MG/ML 1ML VIAL 8 MG IM (15:15)
[2024-04-09 15:34] VITALS: BP 129/85; PULSE 89; RESP 20; TEMP 36.8; O2SAT 96
== END 2024-04-09 15:40 | disposition home or self-care (01) ==
PROVIDERS: Emergency Provider Nurse Practitioner Family; PCP Family Medicine
DX: J44.1 Chronic obstructive pulmonary disease with (acute) exacerbation (principal); J01.90 Acute sinusitis, unspecified; R51.9 Headache, unspecified; H92.03 Otalgia, bilateral; R09.81 Nasal congestion; Z87.891 Personal history of nicotine dependence
CPT/HCPCS: 87880; 96372; 99212; 99214; G0463; J1100

== ENCOUNTER 2024-04-25 15:15 | Outpatient (CLI) | payer MEDICARE, SELFPAY ==
--- NOTE | 2024-04-25 15:23 | CT_ITS ---
FINAL REPORT TECHNIQUE: Axial images were obtained from the lung apex to the mid abdomen by computed tomography. This study was performed with techniques to keep radiation doses as low as reasonably achievable (ALARA). Individualized dose reduction techniques using automated exposure control or adjustment of mA and/or kV according to the patient's size were employed. CLINICAL HISTORY: lung cancer screening former smoker, quit 11 yrs ago smoked 1 ppd, 35 yrs DLP 107.59 COMPARISON: 04/18/2023 FINDINGS: CHEST CT LOW DOSE CTDI vol (mGy): 2.90 DLP (mGy-cm): 107.59 There is no axillary adenopathy. There is no hilar or mediastinal adenopathy. The heart is normal in size. There is mild coronary artery calcification. There is no pericardial or pleural effusion. There is a right middle lobe nodule measuring 5 mm, previously measured 5 mm. This was well seen on image 47. There are a cluster of nodules in the right lower lobe, largest measures 14 mm. Findings are stable since previous. No new mass or nodule is identified. Limited images of the upper abdomen are unremarkable. IMPRESSION: Stable nodules as detailed above. Lung RADS category 2. Recommend 12 month follow-up low-dose chest CT. Reviewed, Interpreted and Dictated by Haroon Scott III, MD Transcribed by Ivanna Palafox Authenticated and [facility]
== END 2024-04-25 23:59 | disposition home or self-care (01) ==
LOC: RAD 15:18
PROVIDERS: PCP Family Medicine; Visit Provider Internal Medicine Pulmonary Disease
DX: F17.210 Nicotine dependence, cigarettes, uncomplicated (principal)
CPT/HCPCS: 71271

== ENCOUNTER 2024-08-16 12:15 | Emergency (ER) | payer MEDICARE, SELFPAY ==
[2024-08-16] VITALS (7 sets, daily range): BP systolic 133–167; BP diastolic 73–97; PULSE 63–92; RESP 18; TEMP 36.7–36.9; O2SAT 96–99; BMI 25.8
--- NOTE | 2024-08-16 12:32 | ED_ITS ---
Discharge Plan Disposition Patient Disposition: Home, Self-Care Prescriptions Prescriptions: New epinephrine [EpiPen 2-Mook] 0.3 mg/0.3 mL auto-injector 0.3 mg IM Q10M PRN (Reason: anaphylaxis) Qty: 2 0RF Rx Instructions: for 2 doses prednisone 20 mg tablet 20 mg PO DAILY 3 Days Qty: 3 0RF No Action famotidine [Acid Field Operator (famotidine)] 20 mg tablet 20 mg PO DAILYP PRN (Reason: Heartburn) duloxetine 30 mg capsule,delayed release(DR/EC) 60 mg PO DAILY hydroxyzine pamoate 25 mg capsule 25 mg PO DAILY ipratropium-albuterol 0.5 mg-3 mg(2.5 mg base)/3 mL solution for nebulization 3 ml inhalation QID PRN (Reason: shortness of breath or wheezing) Qty: 90 6RF budesonide-formoterol [Symbicort] 160-4.5 mcg/actuation HFA aerosol inhaler 2 inh inhalation BID 90 Days Qty: 33 3RF azelastine 137 mcg (0.1 %) spray,non-aerosol 2 spray intranasal HS 90 Days Qty: 30 2RF Rx Instructions: administer into each nostril glucosamine-chondroitin 750-600 mg tablet 1 tab PO .yu albuterol sulfate 90 mcg/actuation HFA aerosol inhaler 1 inh inhalation QID PRN (Reason: shortness of breath or wheezing) Qty: 8.5 12RF furosemide 40 mg tablet See Rx Instructions .ROUTE .COMPLEX Qty: 90 3RF Dose Instruction: TAKE 1 TABLET BY MOUTH DAILY FOR CHF Rx Instructions: TAKE 1 TABLET BY MOUTH DAILY FOR CHF losartan 50 mg tablet See Rx Instructions .ROUTE .COMPLEX Qty: 90 3RF Dose Instruction: TAKE 1 TABLET BY MOUTH DAILY FOR HIGH BLOOD PRESSURE Rx Instructions: TAKE 1 TABLET BY MOUTH DAILY FOR HIGH BLOOD PRESSURE rosuvastatin 5 mg tablet See Rx Instructions .ROUTE .COMPLEX Qty: 90 3RF Dose Instruction: TAKE 1 TABLET BY MOUTH DAILY FOR CHOLESTEROL Rx Instructions: TAKE 1 TABLET BY MOUTH DAILY FOR CHOLESTEROL metoprolol succinate 50 mg tablet extended release 24 hr 50 mg PO BID Qty: 180 3RF aspirin 81 MG tablet,delayed release (DR/EC) 81 mg PO DAILY diclofenac sodium 25 mg tablet,delayed release (DR/EC) 25 mg PO NEEDED PRN (Reason: Pain) Patient Comments: TAKE 1 TABLET BY MOUTH NEEDED 4 TIMES DAILY ketoconazole 2 % cream 1 applic TOPICAL DAILY montelukast 10 MG tablet 10 mg PO DAILY Referrals Follow up/Referrals: Yony Andrews MD [Primary Care Provider] - See instructions Activity Restrictions/Add. Instructions Additional Instructions/Restrictions: Please return to the emergency department if you have 2 or more of the following symptoms trouble breathing, rash, nausea or vomiting. Please follow-up with your PCP in the next couple days. Clinical Impressions Clinical Impression: Rash Print Language Print Language: Kyrgyz Discharge ED Provider: Meng Green Adult HPI General Chief complaint: Allergic Reaction Stated complaint: allergic reaction, rash Time Seen by Provider: 08/16/24 12:20 Mode of Arrival: Ambulatory Source of Information: Patient and Spouse Limitations: No Limitations Description of Symptoms (Recalled from ER Triage Doc. by RN): pt states he thinks he is having an allergic reaction. pt states since about 0130 he has had minimal SOA and severe generalized pruritus. no rash visible, no facial/oral edema. pt states he has not changed meds or used anything new around the house that could be the potential cause. History of Present Illness HPI narrative: Patient is a 64-year-old past medical history of COPD, lung cancer, asthma, pulmonary nodule hypertension presenting for allergic reaction. Patient said last night around 1 AM he noticed he had a rash on his legs that was extremely itchy and some shortness of breath without pharyngeal swelling. Patient said the symptoms have all resolved and he has not had a rash since last night, but was concerned about the symptoms he was having and presented today. Patient said last night he took some Vistaril which cleared all the symptoms he was having. Patient still feels like his legs are itchy, but does not notice a rash anymore. Patient said he took his normal morning meds this morning and has had an allergic reaction before when eating shellfish but has not had any shellfish recently. Patient said that he has had no fevers, changes to medications, environmental changes, detergent changes. Patient's is at bedside and had some itchiness of her hands, but that has resolved as well. Related Data Home Medications ?Medication ?Instructions ?Recorded ?Confirmed famotidine 20 mg tablet (Acid 20 mg PO DAILYP PRN Heartburn 12/20/20 08/16/24 Field Operator (famotidine)) hydroxyzine pamoate 25 mg capsule 25 mg PO DAILY NERVES 08/18/21 08/16/24 montelukast 10 mg tablet 10 mg PO DAILY ALLERGIES 12/14/21 08/16/24 duloxetine 30 mg capsule,delayed 60 mg PO DAILY mood 01/30/22 08/16/24 release aspirin 81 mg tablet,delayed 81 mg PO DAILY HEART HEALTH 06/02/22 08/16/24 release glucosamine-chondroitin 750 mg-600 1 tab PO .yu 04/25/23 08/16/24 mg tablet diclofenac sodium 25 mg 25 mg PO NEEDED PRN Pain 08/16/24 08/16/24 tablet,delayed release ketoconazole 2 % topical cream 1 applic topical DAILY 08/16/24 08/16/24 Previous Rx's ?Medication ?Instructions ?Recorded albuterol sulfate 90 mcg/actuation 1 inh inhalation QID PRN shortness 01/02/24 aerosol inhaler of breath or wheezing #8.5 grams furosemide 40 mg tablet See Rx Instructions .Route 02/18/24 .COMPLEX #90 tabs Symbicort 160 mcg-4.5 2 inh inhalation BID 90 days #33 04/30/24 mcg/actuation HFA aerosol inhaler grams (budesonide-formoterol) azelastine 137 mcg (0.1 %) nasal 2 spray intranasal HS 90 days #30 04/30/24 spray mL ipratropium 0.5 mg-albuterol 3 mg 3 ml inhalation QID PRN shortness 04/30/24 (2.5 mg base)/3 mL nebulization of breath or wheezing #90 mL soln losartan 50 mg tablet See Rx Instructions .Route 08/04/24 .COMPLEX #90 tabs rosuvastatin 5 mg tablet See Rx Instructions .Route 08/04/24 .COMPLEX #90 tabs metoprolol succinate 50 mg 50 mg PO BID High blood pressure 08/07/24 tablet,extended release 24 hr #180 tabs epinephrine 0.3 mg/0.3 mL 0.3 mg (0.3 mL) IM Q10M PRN 08/16/24 injection, auto-injector (EpiPen anaphylaxis #2 ea 2-Mook) prednisone 20 mg tablet 20 mg PO DAILY 3 days #3 tabs 08/16/24 Allergies Allergy/AdvReac Type Severity Reaction Status Date / Time shellfish derived Allergy Anaphylaxis Verified 08/16/24 12:29 meloxicam AdvReac Intermediate raises Verified 08/16/24 12:26 blood pressure acetaminophen [From Percocet] AdvReac Mild bad dreams Verified 08/16/24 12:26 oxycodone [From Percocet] AdvReac Mild bad dreams Verified 08/16/24 12:26 PFSH PFS Disclaimer: The information contained in this section may have been updated after the patient was seen, as this information can be updated by other users. Medical History Pulmonary emphysema History of 2019 novel coronavirus disease (COVID-19) Screening for lung cancer Asthma-COPD overlap syndrome COPD (chronic obstructive pulmonary disease) Allergic rhinitis, unspecified Moderate persistent asthma Dyspnea on exertion Pulmonary nodule 1 cm or greater in diameter History of colon polyps Elevated left ventricular end-diastolic pressure (LVEDP) CAD (coronary artery disease) Abnormal cardiovascular stress test Atypical angina Tachycardia Palpitations Abnormal electrocardiography Chest pain Dyspnea Surgical History H/O hernia repair History of lung biopsy History of arthroscopy of shoulder History of tonsillectomy History of colonoscopy Family History Other Cancer Diabetes Heart attack Social History Smoking Status: Never smoker smoking status stop date: 04/24/2013 second hand exposure: No alcohol intake: never substance use type: denies use current occupational status: unemployed and disabled Travel in the last 8 weeks: None household members: spouse housing: house current occupational exposures/hazards: No caffeine: Yes Other Medical History Have you received the Flu Vaccine for this season: Yes Have you received the Pneumonia Vaccine: Yes ROS Obtained: Yes Systems reviewed as appropriate & no additional complaints except as documented Physical Exam General General appearance: alert and in no apparent distress Eye Eye exam: Present normal appearance ENT ENT exam: Present normal exam, normal oropharynx and mucous membranes moist Chest Chest inspection: Present symmetric chest wall rise Respiratory Respiratory exam: Present normal lung sounds bilaterally; Absent respiratory distress, wheezes or stridor Cardiovascular Cardiovascular exam: Present regular rate Abdominal Exam Abdominal exam: Present soft; Absent tenderness, guarding or rebound Extremities Exam Extremities exam: Present full ROM; Absent tenderness Neurological Exam Neurological exam: Present alert and oriented X3 Psychiatric Psychiatric exam: Present normal affect Skin Skin exam: Present warm, normal color and rash (Pruritic excoriations on bilateral shins, no urticarial or erythematous rash on thorax, back, abdomen, bilateral upper extremities) Medical Decision Making Medical Records Screening: Per USPSTF and CDC recommendations, given the prevalence of disease in our region, it is our hospital?s policy to screen for HIV and viral Hepatitis for all patients aged 18 and over and those with ongoing risk factors. Bruno Inquiry Pt receiving controlled substance: No Vital Signs: 08/16/24 12:19 08/16/24 12:23 08/16/24 12:31 Temperature 98.5 F Temperature Source Oral Pulse Rate 92 H 92 H Pulse Rate [Right] 86 Respiratory Rate 18 Blood Pressure 154/96 H 167/73 H Blood Pressure [Right Arm] 154/96 H Blood Pressure Mean [Right Arm] 115 Blood Pressure Source [Right Arm] Automatic Cuff Blood Pressure Position [Right Arm] Sitting 02 Sat by Pulse Oximetry 99 99 97 Oxygen Delivery Method Room Air Room Air Room Air 08/16/24 13:00 08/16/24 13:30 08/16/24 13:59 Temperature Temperature Source Pulse Rate 73 70 64 Pulse Rate [Right] Respiratory Rate Blood Pressure 142/97 H 133/83 147/89 H Blood Pressure [Right Arm] Blood Pressure Mean [Right Arm] Blood Pressure Source [Right Arm] Blood Pressure Position [Right Arm] 02 Sat by Pulse Oximetry 98 97 99 Oxygen Delivery Method Room Air Room Air Room Air 08/16/24 14:43 Temperature 98.1 F Temperature Source Pulse Rate 63 Pulse Rate [Right] Respiratory Rate 18 Blood Pressure 139/86 Blood Pressure [Right Arm] Blood Pressure Mean [Right Arm] Blood Pressure Source [Right Arm] Blood Pressure Position [Right Arm] 02 Sat by Pulse Oximetry Oxygen Delivery Method Lab Data Lab Results 08/16/24 12:23: HIV 1&2 Antibody Rapid Nonreactive Orders (Tests/Meds): ED MEDICATIONS Discontinued Medications Generic Name Dose Route Start Last Admin Trade Name Freq PRN Reason Stop Dose Admin Diphenhydramine HCl 50 mg 08/16/24 12:51 08/16/24 13:07 Diphenhydramine 50mg Capsule PO 08/16/24 12:52 50 mg ONCE ONE Administration Sodium Chloride 10 ml 08/16/24 13:52 Sodium Chloride 0.9% 10ml Flush Syringe IV 09/15/24 13:51 NEEDED PRN Maintain IV Site ORDERS Category Date Time Status HIV (1&2) Antibody Rapid Stat Lab 08/16/24 12:23 Completed Hep C Ab with Reflex to RNA Stat Lab 08/16/24 12:23 Received Medical Decision Narrative: In summary, this 64-year-old male presents to the emergency department today with allergic reaction. On initial evaluation patient is hemodynamically stable, in no acute respiratory distress alert and oriented. Patient has no urticarial rash on his body, no wheezing, alert and oriented, and no pharyngeal swelling. Patient symptoms have resolved since last night, will start with Benadryl as this helped his symptoms. He has no obvious source of his reaction from last n ight. Will start with Benadryl and observe for allergic symptoms.. Differential diagnosis includes but is not limited to allergic reaction, anaphylaxis, contact dermatitis. Based on these concerns, I ordered Benadryl. Patient received Benadryl for treatment. On reassessment patient's symptoms have not returned and he is having no shortness of air, pharyngeal swelling, wheezing, stridor, urticaria and is alert and oriented. I discussed with patient at bedside signs and symptoms of anaphylaxis and prescribed patient an EpiPen to go home with. I will also give him prednisone for the next couple days. I discussed that he needs to follow-up with his primary care doctor. Patient was otherwise given strict return precautions, all questions were answered patient was discharged in stable co ndition. Patient's prescriptions were reviewed and was prescribed an EpiPen and prednisone. Of note, social determinants of health include poor health literacy. Critical Care Critical Care Time Critical Care Time: No
[2024-08-16] MEDS: diphenhydrAMINE 50MG CAPSULE 50 MG PO (13:07)
--- NOTE | 2024-08-16 13:58 | PC.NURSE ---
Pt ambulatory to bathroom and back to bed
[2024-08-16 17:01] LABS: HIV (1&2) Antibody Rapid NONREACTIVE (NONREACTIVE)
[2024-08-19 05:10] LABS: HCV Ab Non Reactive (Non Reactive)
== END 2024-08-16 14:48 | disposition home or self-care (01) ==
PROVIDERS: Emergency Provider Student in an Organized Health Care Education/Training Program; PCP Family Medicine
DX: R21 Rash and other nonspecific skin eruption (principal); R06.02 Shortness of breath
CPT/HCPCS: 86803; 87389; 99282

== ENCOUNTER 2024-08-27 06:17 | Outpatient (CLI) | payer MEDICARE, SELFPAY ==
--- NOTE | 2024-08-27 06:29 | CT_ITS ---
FINAL REPORT CLINICAL HISTORY: .NECK AND SHOULDER PAIN COMPARISON: None FINDINGS: Axial CT images of the cervical spine were obtained without contrast. Sagittal and coronal reformatted images were also obtained. This study was performed with techniques to keep radiation doses as low as reasonably achievable (ALARA). Individualized dose reduction techniques using automated exposure control or adjustment of mA and/or kV according to the patient's size were employed. There is no evidence of fracture or dislocation. The bony alignment is normal. The disc spaces are preserved. Multilevel osteophytes are present, as well as multilevel mild neuroforaminal narrowing. There is mild central canal stenosis at the C5-6 and C6-7 levels, with the AP canal diameter measuring 9 mm at both levels. No paraspinous soft tissue abnormality is seen. Limited images of the upper thorax revealed mild changes of emphysema and mild scarring in the lung apices. IMPRESSION: No acute bony abnormality is identified. Multilevel osteophytes are present with multilevel mild neuroforaminal narrowing, and mild central canal stenosis at the C5-6 and C6-7 levels. Reviewed, Interpreted and Dictated by Haroon Scott III, MD Transcribed by Michaela Kelly Authenticated and [facility]
== END 2024-08-27 23:59 | disposition home or self-care (01) ==
LOC: RAD 06:18
PROVIDERS: PCP Nurse Practitioner; Visit Provider Nurse Practitioner
DX: M54.2 Cervicalgia (principal)
CPT/HCPCS: 72125

== ENCOUNTER 2024-09-16 09:59 | Day surgery (SDC) | payer MEDICARE, SELFPAY ==
[2024-09-12 13:23] VITALS: BMI 27.8
[2024-09-16] MEDS: LACTATED RINGERS 1000ML 1,000 ML 25 ML IV (10:17)
--- NOTE | 2024-09-16 10:18 | HMH.SCOPE ---
Procedure: Date: 09/16/24 Patient Date of :: 1960 Procedure Performed:: Colonoscopy Indications:: History of colon polyps Note: Colonoscopy in May 2022 was complicated by fairly severe tortuosity. A large/complex sessile serrated adenoma of the right colon was excised. An adenoma at 20 cm was also excised. Performing Provider:: Silvio Norwood MD Referring Provider:: . Sedation:: Monitored anesthesia care Procedure:: After informed consent was obtained the patient was taken to the endoscopy suite. Sedation ensued after the patient was transferred to the left lateral decubitus position. Pulse, blood pressure, and oxygen saturation were monitored throughout the procedure. Digital rectal exam revealed no significant abnormality. The colonoscope was placed in position. The entire colon was evaluated. The colonoscope was carefully removed and the patient was transferred to recovery in stable condition. Please see findings and specimens below for detail. Findings:: Bowel preparation fair to moderate Fairly significant tortuosity Specimens:: None Recommendations:: Repeat colonoscopy 3-5 years secondary to history of polyps, [id number] bowel preparation, and tortuosity. Complications:: No immediate Estimated blood obtained (mL): 0 Colonoscopy Component Colonoscopy Component Was a colonoscopy performed during today's procedure?: Yes Recommended follow up colonoscopy of at least 10 years?: No If no, follow up colonoscopy recommended in ___ years?: (See above) Reason for not recommending >/= 10 yr follow-up interval?: (See above)
[2024-09-16 10:21] VITALS: BP 127/83; PULSE 78; RESP 18; TEMP 36.6; O2SAT 98
--- NOTE | 2024-09-16 10:26 | EXP.ANES.CKL ---
[facility] Disclaimer: The information contained in this section may have been updated after the patient was seen, as this information can be updated by other users. Medical History Infection due to Enterobacter aerogenes Pneumonia due to enterobacter aerogenes Exposure to COVID-19 virus COPD exacerbation Pulmonary emphysema History of 2019 novel coronavirus disease (COVID-19) Asthma-COPD overlap syndrome Allergic rhinitis, unspecified Moderate persistent asthma Dyspnea on exertion Pulmonary nodule 1 cm or greater in diameter History of colon polyps Elevated left ventricular end-diastolic pressure (LVEDP) CAD (coronary artery disease) Abnormal cardiovascular stress test Atypical angina Tachycardia Palpitations Abnormal electrocardiography Chest pain Dyspnea Surgical History H/O hernia repair History of lung biopsy History of arthroscopy of shoulder History of tonsillectomy History of colonoscopy Family History Other Cancer Diabetes Heart attack Social History Smoking Status: Never smoker smoking status stop date: 04/24/2013 second hand exposure: No alcohol intake: never substance use type: denies use current occupational status: unemployed and disabled Travel in the last 8 weeks: None household members: spouse housing: house current occupational exposures/hazards: No caffeine: Yes [facility] Anesthesia Checklist Patient Identification Patient Identification: Arm Band Structural Data Admitted From: Home Planned Operative Procedure/s: Colonoscopy Consent for Planned Operative Procedure(s) Verified: Yes Verified Documents: Surgical Consent and History and Physical NPO Status Verified Time NPO: 00:00 Additional verifications Anesthesia Reactions: No Airway Assessment Mallampati Score:: Class II C-Spine Mobility Assessed: Yes TMJ Mobility Assessed: Yes Dentition: Good Dentition Neurological Assessment Level of Consciousness: Awake, Alert and Appropriate Anesthesia Plan Anesthesia Risk discussed: Yes Anesthesia Plan: Verified ASA Class: II Anesthesia Type: MAC
[2024-09-16 10:35] VITALS: O2SAT 100
[2024-09-16 10:59] VITALS: BP 101/67; PULSE 88; RESP 16; O2SAT 90
[2024-09-16 11:09] VITALS: BP 106/70; PULSE 81; RESP 16; O2SAT 98
[2024-09-16 11:19] VITALS: BP 117/82; PULSE 83; RESP 16; O2SAT 97
[2024-09-16 11:29] VITALS: BP 129/78; PULSE 76; RESP 18; O2SAT 96
== END 2024-09-16 11:34 | disposition home or self-care (01) ==
PROVIDERS: PCP Family Medicine; Visit Provider Surgery
PROC: 0DJD8ZZ Inspection of Lower Intestinal Tract, Via Natural or Artificial Opening Endoscopic (ICD-10-PCS; CPT 45378; principal; 2024-09-16 11:30)
DX: Z09 Encounter for follow-up examination after completed treatment for conditions other than malignant neoplasm (principal); Z86.0101 Personal history of adenomatous and serrated colon polyps
CPT/HCPCS: 45378; J7120

== ENCOUNTER 2024-10-07 16:19 | Outpatient (CLI) | payer MEDICARE, SELFPAY | END 2024-10-07 23:59 | disposition home or self-care (01) | LOC: LAB 16:21 | PROVIDERS: PCP Family Medicine; Visit Provider Allergy & Immunology | DX: Z02.9 Encounter for administrative examinations, unspecified (principal) ==

== ENCOUNTER 2024-10-09 10:32 | Outpatient (CLI) | payer MEDICARE, SELFPAY ==
[2024-10-09 11:13] LABS: Hematocrit 46.8 % (42.0-52.0); Mean Corpuscular Hemoglobin 31.3 pg (27.0-31.2); Mean Corpuscular Volume 91.6 fl (80-94); Red Blood Count 5.11 M/mm3 (4.60-6.20); White Blood Count 11.8 K/mm3 (4.8-10.8)
[2024-10-09 11:14] LABS: Basophils # 0.1 K/mm3 (0-0.2); Basophils % 0.7 % (0.1-2.0); Eosinophils # 0.1 K/mm3 (0.0-0.4); Eosinophils % 0.8 % (0.1-12.0); Lymphocytes # 1.7 K/mm3 (0.7-4.5); Mean Corpuscular HGB Conc 34.2 g/dL (31.8-35.4); Mean Platelet Volume 9.6 fl (7.4-10.4); Monocytes # 0.7 K/mm3 (0.1-1.0); Monocytes % 6.2 % (1.7-9.3); Neutrophils # 9.2 K/mm3 (1.8-7.8); Neutrophils % 77.6 % (37.0-80.0); Platelet Count 242 K/mm3 (142-424); Red Cell Distribution Width 11.7 % (11.5-17.5)
[2024-10-09 11:45] LABS: 25-OH Vitamin D, Total 40.6 ng/mL (30-100)
[2024-10-14 23:08] LABS: F024-IgE Shrimp 1.41 kU/L (Class III); F338-IgE Scallop <0.10 kU/L (Class 0); Immunoglobulin E, Total 134 IU/mL (6-495); O215-IgE Alpha-Gal < 0.10 kU/L (Class 0)
== END 2024-10-09 23:59 | disposition home or self-care (01) ==
LOC: LAB 10:35
PROVIDERS: PCP Family Medicine; Visit Provider Allergy & Immunology
DX: J45.50 Severe persistent asthma, uncomplicated (principal); E55.9 Vitamin D deficiency, unspecified; L29.9 Pruritus, unspecified; Z91.018 Allergy to other foods
CPT/HCPCS: 36415; 82306; 82785; 85025; 86003; 86008

== ENCOUNTER 2024-10-20 14:00 | Outpatient (RCR) | payer MEDICARE, SELFPAY | END 2024-10-20 23:59 | disposition home or self-care (01) | LOC: PT 14:00 | PROVIDERS: Visit Provider Nurse Practitioner | DX: M54.2 Cervicalgia (principal) | CPT/HCPCS: 97014; 97110; 97140; 97163; G0283 ==

== ENCOUNTER 2024-10-30 09:47 | Outpatient (CLI) | payer MEDICARE, SELFPAY ==
[2024-10-30 10:32] LABS: Basophils # 0.1 K/mm3 (0-0.2); Basophils % 1.3 % (0.1-2.0); Eosinophils # 0.3 K/mm3 (0.0-0.4); Eosinophils % 3.9 % (0.1-12.0); Lymphocytes # 1.5 K/mm3 (0.7-4.5); Lymphocytes % 19.8 % (10-50); Mean Corpuscular HGB Conc 34.1 g/dL (31.8-35.4); Mean Corpuscular Hemoglobin 31.4 pg (27.0-31.2); Mean Corpuscular Volume 92.1 fl (80-94); Mean Platelet Volume 9.8 fl (7.4-10.4); Monocytes # 0.6 K/mm3 (0.1-1.0); Monocytes % 8.2 % (1.7-9.3); Neutrophils # 4.9 K/mm3 (1.8-7.8); Neutrophils % 66.1 % (37.0-80.0); Platelet Count 173 K/mm3 (142-424); Red Blood Count 4.78 M/mm3 (4.60-6.20); White Blood Count 7.5 K/mm3 (4.8-10.8)
[2024-10-30 11:08] LABS: Albumin Level 4.3 g/dl (3.5-5.0); Chloride 102 mmol/L (98-107); Potassium 4.8 mmoL/L (3.5-5.1); Sodium 138 mmol/L (136-145)
[2024-10-30 11:11] LABS: Alanine Aminotransferase 43 U/L (12-78); Alkaline Phosphatase 104 U/L (38-126); Anion Gap 14.8 mEq/L (5-15); Aspartate Amino Transferase 36 U/L (17-59); Bilirubin,Direct 0.3 mg/dl (0.0-0.4); Bilirubin,Indirect 0.3 mg/dL (0.0-0.9); Bilirubin,Total 0.6 mg/dl (0.2-1.3); Bilirubin,Unconjugated 0.3 mg/dL (0.0-1.1); Blood Urea Nitrogen 23 mg/dl (9-20); Calcium 9.6 mg/dl (8.4-10.2); Carbon Dioxide 26 mmol/L (22.0-30.0); Cholesterol 138 mg/dl (140-200); Estimated Glomerular Filt Rate 68 ml/min (>60); GFR (African American) 82 ML/MIN (>60); Glucose 142 mg/dl (74-100); Total Protein,Serum 6.7 g/dl (6.3-8.2); Triglycerides 215 mg/dl (30-150); VLDL Cholesterol 43 mg/dL (0-40)
[2024-10-30 11:12] LABS: Chol/HDL Ratio 3.8 (1-3.5); HDL Cholesterol 36 mg/dl (40-60)
[2024-10-30 11:23] LABS: Direct LDL Cholesterol 72.99 mg/dL (100-129)
[2024-10-30 11:35] LABS: Free T4 (Free Thyroxine) 1.11 ng/dl (0.78-2.19)
[2024-10-30] MEDS: ALBUTEROL 0.083% 2.5 MG/3 ML NEB IH (12:52)
[2024-10-30 13:47] LABS: Hemoglobin A1C 6.6 % (4.0-6.0)
== END 2024-10-30 23:59 | disposition home or self-care (01) ==
LOC: RT 09:49
PROVIDERS: Nurse Practitioner; PCP Family Medicine; Visit Provider Internal Medicine Pulmonary Disease
DX: R06.09 Other forms of dyspnea (principal); E78.5 Hyperlipidemia, unspecified; I10 Essential (primary) hypertension; I25.118 Atherosclerotic heart disease of native coronary artery with other forms of angina pectoris; R94.31 Abnormal electrocardiogram [ECG] [EKG]; R07.89 Other chest pain; R73.03 Prediabetes
CPT/HCPCS: 36415; 80048; 80061; 80076; 83036; 83735; 84439; 84443; 85025; 94060; 94618; 94726; 94729; J7613

== ENCOUNTER 2024-11-11 07:11 | Outpatient (CLI) | payer MEDICARE, SELFPAY ==
--- NOTE | 2024-11-11 | CA_ITS ---
APPROVED REPORT Exam: Pharmacologic Technologist: Cherry Weaver Ht: 5 ft 10 in Wt: 197 lbs BSA: 2.07 m2 HR: 65 bpm BP: 128/74 mmHg Stress Test Details Test: Lexiscan HR Resting HR: 65 bpm Max Heart Rate (APMHR): 158.153728 bpm Max HR Achieved: 106 bpm Target HR (85% APMHR): 134.743811 bpm % of APMHR: 67.09 Recovery HR: 75 bpm BP Resting BP: 128.0/74.0 mmHg Max BP: 135.0/83.0 mmHg Recovery BP: 113.0/72.0 mmHg ECG Stress ECG Conclusion Symptoms: Shortness of breath Arrhythmias/Ectopy: - ST-T Changes: Less than [address] depression. Conclusion: EKG portion unremarkable due to Lexiscan infusion. Electronically signed by : Alma Escobar MD 11/12/2024 10:12:29
--- NOTE | 2024-11-11 07:12 | NM_ITS ---
APPROVED REPORT Exam: Nuclear Stress Test Indication: Chest pain, SOB, HTN, High cholesterol, Family history, CAD Patient Location: Outpatient Stress Tech: Cherry Weaver NM Tech:Jayshree Pérez, ARRT, RT (R)(N) Ht: 5 ft 10 in Wt: 197 lbs HR: 65 bpm BP: 128/74 mmHg BSA: 2.07 m2 TID: 1.18 BMI: 28.2 History: Chest pain, SOB, HTN, High cholesterol, Family history, CAD Procedure: Patient received 0.4 mg of intravenous Lexiscan, resting heart rate 65 bpm, resting blood pressure 128/74 mmHg, with Lexiscan maximum heart rate achieved was 104 bpm which is % of the maximum predicted heart rate and blood pressure was 135/83 mmHg. With Lexiscan, patient denied any complaint of chest pain. Cardiac Stress and Resting SPECT Images: Cardiac Stress and Resting SPECT images were obtained using technetium 99m Myoview 32.8 mCi stress and 10.12 mCi at rest. Resting and stress imaging in supine and prone positions demonstrate no evidence of fixed or reversible perfusion defects. Gated imaging demonstrates low normal LV systolic function. LVEF is calculated at 51%. Conclusion: No evidence of fixed or reversible perfusion defects. Gated imaging demonstrates low normal LV systolic function. LVEF is calculated at 51%. Electronically signed by : Alma Escobar MD 11/12/2024 10:10:35
[2024-11-11] MEDS: REGADENOSON 0.4MG/5ML SYRINGE 0.4 MG IV (08:53)
[2024-11-11] MEDS: SODIUM CHLORIDE 0.9% 10ML SYR (RAD ONLY) 10 ML IV ×2 (08:53→08:54)
[2024-11-11] MEDS: ISOTOPE MYOVIEW (PER STUDY) 1 DOSE IV (08:54)
== END 2024-11-11 23:59 | disposition home or self-care (01) ==
LOC: RAD 07:12
PROVIDERS: PCP Family Medicine; Visit Provider Nurse Practitioner
DX: I25.118 Atherosclerotic heart disease of native coronary artery with other forms of angina pectoris (principal); R07.89 Other chest pain; I10 Essential (primary) hypertension; R94.31 Abnormal electrocardiogram [ECG] [EKG]; R06.00 Dyspnea, unspecified; R73.03 Prediabetes; E78.5 Hyperlipidemia, unspecified
CPT/HCPCS: 78452; 93017; 93018; 93306; A9502; J2785

== ENCOUNTER 2024-11-13 13:00 | Outpatient (RCR) | payer MEDICARE, SELFPAY | END 2024-11-13 23:59 | disposition home or self-care (01) | LOC: PT 13:00 | PROVIDERS: Visit Provider Nurse Practitioner | DX: M54.2 Cervicalgia (principal) | CPT/HCPCS: 97014; 97110; 97140; G0283 ==

== ENCOUNTER 2025-04-27 11:02 | Outpatient (CLI) | payer MEDICARE, SELFPAY ==
--- NOTE | 2025-04-27 11:03 | CT_ITS ---
FINAL REPORT CLINICAL HISTORY: lung cancer screening. former smoker quit 13 years ago. smoked 2ppd for 35 years COMPARISON: 04/25/2024 FINDINGS: CTDI vol (mGy): 2.90 DLP: 113.[address] images of the chest were obtained using the low-dose protocol for screening. There are small, scattered mediastinal lymph nodes measuring up to 13 mm in greatest dimension. Mediastinal lymph nodes are slightly more evident than on prior exam. There is a subcarinal lymph node measuring 1.7 cm. No axillary mass or adenopathy is identified. On the lung window images, there is mild biapical pleural and parenchymal scarring. There is a 5 mm right middle lobe nodule seen on image 219 of series 2 which is stable from prior exam. Cluster of nodule seen in the right lower lobe posteriorly are also unchanged. IMPRESSION: Slight increase in mediastinal adenopathy. Stable pulmonary nodules. Lung RADS category 2S. Recommend 12 month followup low-dose CT for further evaluation. Reviewed, Interpreted and Dictated by Carter Vega MD Transcribed by Laqutia Ramirez Authenticated and [facility]
--- OUTSIDE RECORDS SUMMARY | 2025-04-27 11:26 | XMS_ITS | Data Portability ---
Author Organization [facility] ADMIN Address [address] [place] [id number] Assessment Encounter Date Assessment Date Assessment LastModified by Organization Details LastModified Time 03/26/2023 03/26/2023 Evelia CARCAMON Dear Evelia, I want to let you know that I saw James costello in the off state your request. He is a pleasant 62-year-old gentleman who noticed a bulge in his over abdomen some time ago and recently brought it to your attention during his last visit. The patient also has a history of bilateral inguinal hernias that are sometimes problematic as well. You obtained a CT scan of the abdomen pelvis which confirmed the presence of the inguinal hernias but no abdominal wall mass or herniation was noted and given these findings you have asked me to evaluate him and make recommendations. NKDA MEDICATIONS: Documented by the patient and on the chart PAST MEDICAL HISTORY: Positive for high blood pressure asthma history of coronary artery disease history of colonic polyps negative for liver or kidney disease PAST SURGICAL HISTORY: Gynecomastia sinus surgery; spinal fusion; right shoulder surgery FAMILY HISTORY: Positive for cancer diabetes heart disease high blood pressure and stroke SOCIAL HISTORY: Currently denies alcohol or tobacco use REVIEW OF SYSTEMS: General: no malaise, fever, no constitutional symptoms of malignancy Eyes: no blurred vision, no loss of vision no change in vision, no discharge Nose: No drainage, no bleeding, no obstruction Oropharynx: No sore throat, no change in voice, no difficulty swallowing Pulmonary: No shortness of breath, no dyspnea on exertion, no productive cough, no bleeding Cardiac: No chest pain, no palpitation, no racing heartbeat, no dyspnea when lying flat Abdominal: No abdominal pain, no nausea, no vomiting, no diarrhea : No dysuria, no hematuria, no lack of urine, no pain with urination Musculoskeletal: No joint pain, no back pain, no muscle pain, no claudication Integumentary: No rashes, no open sores, no open wounds Hematologic: No history of blood clots, no PEs, no history of free bleeding Endocrine: No cold intolerance, no heat intolerance, no polydipsia Neurologic: No loss of consciousness, no gait imbalance, no loss of function or sensation Remaining 14 point ROS noncontributory PHYSICAL EXAM: VS: Respirations 16 pulse 88 blood pressure 124/76 BMI is 26.5 General: Well-developed, alert orient x3. In no obvious distress. HEENT: Normal cephalic atraumatic extraocular muscles intact. No scleral icterus nasal passages are patent without discharge oropharynx is clear. Neck is soft and supple without lateral cervical adenopathy there is no visualized intraoral lesion. CHEST: No accessory muscle use lungs are clear to auscultation. Heart is regular rate and rhythm without murmur ABDOMEN: Soft, nontender nondistended, positive bowel sounds, no hepatosplenomegaly no masses : Grossly normal anatomy, no inguinal adenopathy. Bilateral indirect inguinal hernias are present EXT: Positive pulses no cyanosis clubbing or edema NEURO: Cranial nerves 2-12 grossly intact no focal or motor sensory deficits ASSESSMENT: I had a long and detailed discussion with the patient about his diagnosis and the treatment options. We discussed the technical aspects of a robotic versus an open inguinal hernia repair and the postoperative recovery as well as the risks. These risks include but are not limited to bleeding, infection, heart attack, stroke, testicular injury and loss, bowel injury, etc.. After thorough and detailed discussion, the patient is interested in proceeding with his hernia repair. I will get him scheduled at his convenience and I will keep you up-to-date on developments in his case. Appreciate you asking me see this nice gentleman. Sincerely, Amaury Gant This document has been prepared with the use of voice recognition software and may contain sound alike and software old missions or errors in punctuate dockery and or spelling, etc. [email or web address] Not available 03/26/2023 14:34:50 04/30/2023 04/30/2023 Mr. Costello returns after robotic bilateral inguinal hernia repair. He is doing very well without serous complaints or issues. The wounds are intact without sign of infection. I have restricted him to another 30 lb weight lifting for another 4 weeks. I will see him back in a month as needed [email or web address] Not available 04/30/2023 13:50:54 Plan of Treatment Reminders Order Date Submit Date Provider Last Modified By Organization Details Last Modified Time Details Appointments None record ed. Lab None record ed. Referral None record ed. Procedures None record ed. Surgeries None record ed. Imaging None record ed. Medication Orders None record ed. Patient TargetsNo targets recorded. Patient InstructionsNo instructions recorded. Reason for Referral None Reported. Results Created Date Observation Date Name Description Value Unit Range Abnormal Flag Note LastModifiedBy Organization Detail LastModifiedTime 04/11/20 23 04/11/2023 CBC AUTO NO DIFF (HEMO GRAM) WBC 7.8 K/uL 4.0-10 .5 Not Available [facility] ([facility]) [address] , [place], [address], 04/11/2023 11:10:16 04/11/20 23 04/11/2023 CBC AUTO NO DIFF (HEMO GRAM) RBC 5.0 M/mm3 4.7-6. 1 Not Available [facility] ([facility]) [address] , [place], [address], 04/11/2023 11:10:16 04/11/20 23 04/11/2023 CBC AUTO NO DIFF (HEMO GRAM) HGB 15.2 gm/dL 13.5-1 8.0 Not Available [facility] ([facility]) [address] , [place], [address], 04/11/2023 11:10:16 04/11/20 23 04/11/2023 CBC AUTO NO DIFF (HEMO GRAM) HCT 45.9 % 42.0-5 2.0 Not Available [facility] ([facility]) [address] [place], [address], 04/11/2023 11:10:16 04/11/20 23 04/11/2023 CBC AUTO NO DIFF (HEMO GRAM) MCV 91.4 fL 78-100 Not Available [facility] ([facility]) [address] [place], [address], 04/11/2023 11:10:16 04/11/20 23 04/11/2023 CBC AUTO NO DIFF (HEMO GRAM) MCH 30.3 pg 27-31 Not Available [facility] ([facility]) [address], [place], [address], 04/11/2023 11:10:16 04/11/20 23 04/11/2023 CBC AUTO NO DIFF (HEMO GRAM) MCHC 33.1 g/dL 32-36 Not Available [facility] ([facility]) [address], [place], [address], 04/11/2023 11:10:16 04/11/20 23 04/11/2023 CBC AUTO NO DIFF (HEMO GRAM) RDW 12.5 % 11.5-1 4.0 Not Available [facility] ([facility]) [address], [place], [address], 04/11/2023 11:10:16 04/11/20 23 04/11/2023 CBC AUTO NO DIFF (HEMO GRAM) platelet count 184 K/uL 150-45 0 Not Available [facility] ([facility]) [address], [place], [address], 04/11/2023 11:10:16 04/11/20 23 04/11/2023 CBC AUTO NO DIFF (HEMO GRAM) manual differential NO Not Available [facility] ([facility]) [address] , [place], [address], 04/11/2023 11:10:16 04/11/20 23 04/11/2023 COMP METAB OLIC PANEL sodium 138 mmol/ L 136-14 5 Not Available [facility] ([facility]) [address] , [place], [address], 04/11/2023 11:39:45 04/11/20 23 04/11/2023 COMP METAB OLIC PANEL potassium 4.0 mmol/ L 3.6-5. 0 Not Available [facility] ([facility]) [address] , [place], [address], 04/11/2023 11:39:45 04/11/20 23 04/11/2023 COMP METAB OLIC PANEL chloride 102 mmol/ L 98-107 Not Available [facility] ([facility]) [address] , [place], [address], 04/11/2023 11:39:45 04/11/20 23 04/11/2023 COMP METAB OLIC PANEL carbon dioxide 29.0 mmol/ L 21.0-3 2.0 Not Available [facility] ([facility]) [address] , [place], [address], 04/11/2023 11:39:45 04/11/20 23 04/11/2023 COMP METAB OLIC PANEL anion gap 11.0 Not Available [facility] ([facility]) [address] , [place], [address], 04/11/2023 11:39:45 04/11/20 23 04/11/2023 COMP METAB OLIC PANEL glucose 119 mg/dL 70-120 Not Available [facility] ([facility]) [address] , [place], [address], 04/11/2023 11:39:45 04/11/20 23 04/11/2023 COMP METAB OLIC PANEL BUN 24 mg/dL 7-18 high Not Available [facility] ([facility]) [address] [place], [address], 04/11/2023 11:39:45 04/11/20 23 04/11/2023 COMP METAB OLIC PANEL creatinine 1.2 mg/dL 0.6-1. 3 Not Available [facility] ([facility]) [address] [place], [address], 04/11/2023 11:39:45 04/11/20 23 04/11/2023 COMP METAB OLIC PANEL glomerular filtration rate >60 mlper min 60- Not Available [facility] ([facility]) [address] , [place], [address], 04/11/2023 11:39:45 04/11/20 23 04/11/2023 COMP METAB OLIC PANEL total protein 7.6 g/dL 6.4-8. 2 Not Available [facility] ([facility]) [address] , [place], [address], 04/11/2023 11:39:45 04/11/20 23 04/11/2023 COMP METAB OLIC PANEL albumin 3.9 g/dL 3.4-5. 0 Not Available [facility] ([facility]) [address] , [place], [address], 04/11/2023 11:39:45 04/11/20 23 04/11/2023 COMP METAB OLIC PANEL globulin 3.7 Not Available [facility] ([facility]) [address] , [place], [address], 04/11/2023 11:39:45 04/11/20 23 04/11/2023 COMP METAB OLIC PANEL alb/glob ratio 1.1 0.7-2 Not Available [facility] ([facility]) [address] , [place], [address], 04/11/2023 11:39:45 04/11/20 23 04/11/2023 COMP METAB OLIC PANEL calcium 9.2 mg/dL 8.5-10 .5 Not Available [facility] ([facility]) [address] , [place], [address], 04/11/2023 11:39:45 04/11/20 23 04/11/2023 COMP METAB OLIC PANEL bilirubin total 0.90 mg/dL 0.10-1 .00 Not Available [facility] ([facility]) [address] , [place], [address], 04/11/2023 11:39:45 04/11/20 23 04/11/2023 COMP METAB OLIC PANEL AST (SGOT) 20 U/L 0-37 Not Available [facility] ([facility]) [address], [place], [address], 04/11/2023 11:39:45 04/11/20 23 04/11/2023 COMP METAB OLIC PANEL ALT (SGPT) 32 U/L 0-65 Not Available [facility] ([facility]) [address], [place], [address], 04/11/2023 11:39:45 04/11/20 23 04/11/2023 COMP METAB OLIC PANEL alk phosphatase 102 U/L 46-116 Not Available [facility] ([facility]) [address], [place], [address], 04/11/2023 11:39:45 Result Notes None recorded. Procedures Surgical History Date Name Laterality Status Provider Name and Address Organization Details Recorded Time 10/22/19 19 lumbar spinal fusion completed [facility] [place] 03/26/2023 13:44:18 10/22/19 15 manipulation of displaced nasal septum completed [facility] 03/26/2023 13:43:37 10/22/19 15 nasal polypectomy completed [facility] [place] 03/26/2023 13:43:56 10/22/18 95 removal of sebaceous cyst completed [facility] [place] 03/26/2023 13:43:01 repair of inguinal hernia completed [facility] [place] 04/30/2023 13:36:12 Imaging Results None recorded. Procedure Notes None recorded. Medical Equipment None Reported. Allergies Allergen ID Allergen Name Allergen Category Reaction Reaction Severity Criticality Documentation Date Start Date Code Code System Note Provider Name and Address Organization Details Recorded Time 88290 acetamino phen / oxycodone medicatio n Not available Not available Not available 03/26/2023 74033 3 RxNorm MORENITA Mendez [facility] & [place] 3 13:33:07 98428 meloxicam medicatio n Not available Not available Not available 03/26/2023 91334 RxNoMORENITA Espinoza [facility] & [place] 3 13:33:30 Medications Name Sig Start Date Stop Date Status Note LastModified by Organization Details LastModified Time losartan 50 mg tablet TAKE 1 TABLET BY MOUTH ONCE DAILY FOR HIGH BLOOD PRESSURE active Not Available Not Available No t Available furosemide 40 mg tablet TAKE 1 TABLET BY MOUTH ONCE DAILY active Not Available Not Available No t Available metoprolol succinate ER 50 mg tablet,exten ded release 24 hr TAKE 1 TABLET BY MOUTH ONCE DAILY FOR HIGH BLOOD PRESSURE active Not Available Not Available No t Available hydrocodone 5 mg-acetamino phen 325 mg tablet TAKE 1 TABLET BY MOUTH EVERY 6 HOURS NEEDED FOR PAIN active Not Available Not Available No t Available montelukast 10 mg tablet TAKE 1 TABLET BY MOUTH ONCE DAILY active Not Available Not Available No t Available hydroxyzine HCl 25 mg tablet Take 1 tablet 3 times a day by oral route. active Not Available Not Available No t Available azelastine 137 mcg (0.1 %) nasal spray active Not Available Not Available Not Available albuterol sulfate HFA 90 mcg/actuatio n aerosol inhaler INHALE 1 PUFF BY MOUTH 4 TIMES DAILY NEEDED FOR SHORTNESS OF BREATH OR WHEEZING active Not Available Not Available Not Available rosuvastatin 5 mg tablet TAKE 1 TABLET BY MOUTH ONCE DAILY FOR CHOLESTEROL active Not Available Not Available Not Available Spiriva with HandiHaler 18 mcg and inhalation capsules INHALE 1 PUFF BY MOUTH ONCE DAILY FOR 90 DAYS. PUNCTURE 1 CAP USING DEVICE; ONE DOSE=2 INHALATIONS active Not Available Not Available Not Available duloxetine 60 mg capsule,daniele yed release TAKE 1 CAPSULE BY MOUTH ONCE DAILY active Not Available Not Available No t Available Fish Oil active Not Available Not Avai lable Not Available famotidine active Not Available Not Av ailable Not Available azelastine active Not Available Not Av ailable Not Available Asprin Ec Low Dose active Not Available Not Available Not Available triamcinolon e (bulk) active Not Available Not Available Not Available duloxetine active Not Available Not Av ailable Not Available Symbicort 160 mcg-4.5 mcg/actuatio n HFA aerosol inhaler INHALE 2 PUFFS BY MOUTH TWICE DAILY active Not Available Not Available No t Available Glucosamine Chondroit Complx Advan 750 mg-100 mg-125 mg-1.65 mg tablet Take by oral route. active Not Available Not Available Not Available ipratropium 0.5 mg-albuterol 2.5 mg/2.5 mL solution for nebulization Inhale by inhalation route. active Not Available Not Available No t Available metoprolol succinate ER 50 mg capsule sprinkle, ext. release 24 hr Take 1 capsule every day by oral route. active Not Available Not Available No t Available clindamycin 1 % gel and sunscreen SPF 50 lotion active Not Available Not Available Not Available albuterol 90 mcg-budesoni de 80 mcg/actuatio n HFA aerosol inhaler Inhale by inhalation route. active Not Available Not Available No t Available Vitals Date Recorded Body weight Body temperature Oxygen saturation Oxygen saturation in Arterial blood by Pulse oximetry Heart rate Body mass index (BMI) Body height Systolic And Diastolic Provider Name and Address Organization Details Last Updated DateTime 3 43192.5 9 g 97.5 [degF] 100 % 100 % 88 /min 26.5 kg/m2 177.8 cm 124/76 mm[Hg] Ford Weaver [facility] 3 13:32:27 Date Recorded Body height Body mass index (BMI) Body weight Body temperature Oxygen saturation Oxygen saturation in Arterial blood by Pulse oximetry Heart rate Systolic And Diastolic Provider Name and Address Organization Details Last Updated DateTime 3 177.8 cm 26.8 kg/m2 85956.7 7 g 98.9 [degF] 98 % 98 % 77 /min 120/82 mm[Hg] Ford Weaver [facility] & [place] 3 13:34:34 Social History Question Answer Notes LastModified by Organizat ion Details LastModified Time Tobacco Smoking Status Former Smoker Ford hernandez [facility] & [place] 03/26/2023 13:45:24 What Is Your Level Of Caffeine Consumption? Moderate Information not available 03/26/2023 When Did You Quit Smoking? 6-10yearssinc [email or web address] e Information not available 03/26/2023 What Was The Date Of Your Most Recent Tobacco Screening? 03/26/2023 Information not available 03/26/2023 Has Tobacco Cessation Counseling Been Provided? No [email or web address] Information not available 03/26/2023 How Many Years Have You Smoked Tobacco? 10 [email or web address] Information not available 03/26/2023 Sex: Unknown Functional Status Question Answer Note LastModified by Organizat ion Details LastModified Time Do you use any illicit or recreational drugs? No [email or web address] Information not available 03/26/2023 Do you or have you ever used any other forms of tobacco or nicotine? No Information not available 03/26/2023 What is your level of alcohol consumption? None [email or web address] Information not available 03/26/2023 Mental Status None recorded. Family History Nothing Reported. Medical History Condition Response Hypertension Y High Cholesterol Y Past Encounters Encounter ID Performer Location Encounter Start Date Encounter Closed Date Diagnosis/Indication Diagnosis SNOMED-CT Code Diagnosis ICD10 Code Diagnosis Note [id number] Amaury Gant MD [facility] General Surgery [address] [place] [phone] 03/26/2023 13:03:15 03/26/2023 14:18:19 Bilateral inguinal hernia 99434887 K40.20 [id number] Amaury Gant MD [facility] General Surgery [address] [place] [phone] 04/30/2023 13:09:56 04/30/2023 14:05:18 Health Concerns Section Related Observation LastModified by Organization Detai ls LastModified Time None Recorded Concern Status LastModified by Organization Details LastModified Time None Recorded Advance Directives Directive None Recorded Payers Insurance Date Sequence Insurance Name Policy Number Policy [place] Covered Member ID [place] Member ID Guarantor Name 05/04/2023 1 [facility] (MEDICARE REPLACEMENT/A DVANTAGE - HMO) [id number] James Costello [id number] James Costello 03/26/2023 1 *SELF PAY* Gordo Costello 05/04/2023 2 [employer] [facility] (MEDICAID HMO) James Costello [id number] James Costello
--- OUTSIDE RECORDS SUMMARY | 2025-04-27 11:26 | XMS_ITS | Clinical Summary ---
Author Organization [facility] Address [address] [place] [address] Care Team Providers Care Fast Food Crew Member Name Role Phone Javier Andrews MD Primary Care Provider [phone] Allergies Active Allergy Reactions Criticality Noted Date Comments Meloxicam Other - please docum ent in the comment field,Palpitations Medium 01/07/2021 elavates BP Oxycodone Hallucinations Medium 08/04/2022 Oxycodone-Acetaminop hen Other - please document in the comment field Low 01/07/2021 wild/vivid dreams Medications albuterol 108 (90 Base) MCG/ACT inhaler INHALE 1 TO 2 PUFFS EVERY 4 TO 6 HOURS NEEDED. 0 Active ProAir HFA 108 (90 Base) MCG/ACT inhaler INHALE 1 PUFF BY MOUTH 4 TIMES DAILY NEEDED FOR SHORTNESS OF BREATH OR WHEEZING 1 Active Azelastine HCl 137 MCG/SPRAY solution USE 2 SPRAY(S) IN EACH NOSTRIL TWICE DAILY NEEDED FOR ALLERGIES 1 Active budesonide-form oterol (Symbicort) 160-4.5 MCG/ACT inhaler Inhale 2 puffs every 12 (twelve) hours. Active ipratropium-alb uterol (Duo-Neb) 0.5-2.5 mg/3 mL nebulizer solution 50 mg. 1 Active montelukast (Singulair) 10 MG tablet Take 1 tablet (10 mg) by mouth every night. 5 Active tiotropium (Spiriva HandiHaler) [address] into inhaler and inhale 1 (one) time each day. Active omega-3 (Fish Oil) 1000 MG capsule Take 1 capsule (1,000 mg) by mouth 2 (two) times a day with meals. Active hydrOXYzine pamoate (Vistaril) 25 MG capsule Take 1 capsule (25 mg) by mouth 3 (three) times a day if needed. 1 Active DULoxetine (Cymbalta) [address] capsule Take 1 capsule (60 mg) by mouth 1 (one) time each day. 2 Active triamcinolone (Kenalog) 0.025 % cream Apply 1 application topically 2 (two) times a day. Active rosuvastatin (Crestor) 5 MG tablet Take 1 tablet (5 mg) by mouth every night. Active metoprolol succinate XL (Toprol-XL) 50 MG 24 hr tablet Take 1 tablet (50 mg) by mouth 1 (one) time each day. Do not crush or chew. Active losartan (Cozaar) 50 MG tablet Take 1 tablet (50 mg) by mouth 1 (one) time each day. Active furosemide (Lasix) 40 MG tablet Take 1 tablet (40 mg) by mouth 1 (one) time each day. Active famotidine (Pepcid) 10 MG tablet Take 1 tablet (10 mg) by mouth 1 (one) time each day if needed for heartburn. Active aspirin 81 MG EC tablet Take 1 tablet (81 mg) by mouth 1 (one) time each day. Active glucosamine-cho ndroitin 500-400 MG tablet Take 1 tablet by mouth 3 (three) times a day. Active acetaminophen (Tylenol 8 Hour) 650 MG ER tablet Take 1 tablet (650 mg) by mouth every 8 (eight) hours if needed for mild pain. Do not crush, chew, or split. Active clindamycin (Clindagel) 1 % gel APPLY GEL TOPICALLY TWICE DAILY TO AFFECTED PIMPLE-LIKE AREAS NEEDED 3 Active doxycycline (Vibramycin) 100 MG capsule TAKE 1 CAPSULE BY MOUTH TWICE DAILY WITH A FULL MEAL FOR 6 WEEKS 3 Active mupirocin (Bactroban) 2 % ointment APPLY TWICE DAILY TO FINGERNAILS, NOSE, AND BELLY BUTTON FOR THE FIRST WEEK OF EACH MONTH FOR 3 MONTHS 3 Active diclofenac (Voltaren) 25 MG EC tablet Take 1 tablet (25 mg) by mouth 2 (two) times a day. 4 Active ketoconazole (NIZOral) 2 % shampoo Apply 1 Application topically 1 (one) time per week. 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 Allergic rhinitis 10/13/2015 GERD (gastroesophageal reflux disease) 5 Immunizations Immunization Administration Dates Next Due Influenza, seasonal, injectable 07/22/2015 Pneumococcal Polysaccharide PPV23 10/22/2012 Family History Medical History Relation Name Comments Cancer Father Heber Munroe Lung cancer Father Heber Munroe FH: lung cancer Osteoporosis Maternal Grandfather Bahman Munroe Cancer Maternal Grandmother Vivienne Munroe Cardiac disorder Other 1 Hypertension Other 2 Other cancer Other 3 Relation Name Status Comments Father Heber Munroe Maternal Grandfather Ed Ludwig Maternal Grandmother Vivienne Munroe Other 1 Other 2 Other 3 Social History Tobacco Use Types Packs/Day Years Used Date Smoking Tobacco: Former Cigarettes 1.5 38.5 0 11/05/1974 - 04/24/2013 Smokeless Tobacco: Current Snuff Tobacco Cessation:Ready to Q uit: Not Asked; Counseling Given: Not Answered Alcohol Use Standard Drinks/Week Comments Not Currently 0 (1 standard drink = 0.6 oz pur e alcohol) Recovering alchoholic PHQ-2 Answer Date Recorded Patient Health Questionnaire-2 Score 0 04/30/2024 Sex and Gender Information Value Date Recorded Sex Assigned at Not on file Legal Sex Male 6:16 PM EDT Gender Identity Not on file Sexual Orientation Straight 10/27/2021 4: 50 PM EST Last Filed Vital Signs Vital Sign Reading Time Taken Comments Blood Pressure 133/85 08/04/2024 2:13 PM EDT Pulse 76 08/04/2024 2:13 PM EDT Temperature 36.3 C (97.3 F) 11/28/2021 11:05 AM EST Respiratory Rate 20 06/18/2023 3:26 PM EDT Oxygen Saturation 97% 08/04/2024 2:13 PM EDT Inhaled Oxygen Concentration - - Weight 85.3 kg (188 lb) 08/04/2024 2:13 PM EDT Height 177.8 cm (5' 10 ) 08/04/2024 2:13 PM EDT Body Mass Index 26.98 08/04/2024 2:13 PM EDT Plan of Treatment Health Maintenance Due Date Last Done Comments [facility]-HIV Screening 1962 [facility]-Hepatitis C Screening 1962 [facility]-Medicare Annual Wellness (AWV) 1962 [facility]-Infant/Child/Adol SDOH Screenings 1962 [facility]- SDOH Screenings 1980 [facility]-Adult SDOH Screenings 1980 CT Colonography 2007 Colonoscopy 2007 FIT-DNA 2007 FIT 2007 FOBT 2007 Sigmoidoscopy 2007 [facility]-Colorectal Cancer Screening 2007 [facility]-Pneumococcal Vaccine: 50+ Years (2 of 2 - PCV) 08/30/2017 08/30/2016, 10/22/2012 [facility]-Zoster Vaccines (2 of 2) 08/05/2021 06/10/2021 [facility]-Lung Cancer Screening 04/15/20222020, 04/15/2021, 04/15/2021, Additional history exists [id number] Vaccine (1 - 2023- season) 2024 [facility]-Depression Screening 04/30/2025 04/30/2024 [facility]-Influenza Vaccine (#1) 06/22/202506/27, 06/20/2023, 06/07/2021, Additional history exists [facility]-DTaP,Tdap,and Td Vaccines (2 - Td or Tdap) 06/20/2033 06/20/2023, 08/30/2016 [facility]-RSV Vaccine: 60+ Years or (1 - 1-dose 75+ series) 2037 [facility]-Obesity Intervention Completed 024, 04/30/2024, 01/30/2024, Additional history exists HPV Vaccines Aged Out No longer eligi ble based on patient's age to complete this topic [facility]-HIB Vaccines Aged Out No longer e ligible based on patient's age to complete this topic [facility]-Hepatitis A Vaccines Aged Out No longer eligible based on patient's age to complete this topic [facility]-IPV Vaccines Aged Out No longer e ligible based on patient's age to complete this topic [facility]-Rotavirus Vaccines Aged Out No lo nger eligible based on patient's age to complete this topic Procedures Procedure Name Priority Date/Time Associated Diagnosis Comments CT CHEST WO IV CONTRAST Routine 04/15/2021 10:10 AM EDT Encounter for other specified special examinations from Last 3 Months or Most Recently Relevant to Health Maintenance Results * CT Chest wo IV Contrast (04/15/2021 10:10 AM EDT) Narrative IMAGING - 04/15/2021 10:10 AM EDT This study was performed at an outside facility and has been loaded into the PACS system for reference only. This order has been auto-finalized and does not contain a result. 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
--- OUTSIDE RECORDS SUMMARY | 2025-04-27 11:26 | XMS_ITS | Patient Health Record ---
Author Organization [facility] Address [address], [place] [id number] Care Team Providers Care Mail Processing Machine Operator Name Role Phone Rik Paulino Primary Care Provider [phone] Reason For Referral No Information Medications Medication SIG (Take, Route, Frequency, Duration) Notes Start Date End Date Status Ibuprofen (MigRx)tablets b y mouth 1-4 times daily 03/19/2013 Active Claritin (MigRx)1 tablet by mouth daily 03/19/2013 Active Problems Problem Type SNOMED Code ICD Code Onset Dates Problem Status W/U Status Risk Notes Problem Acute frontal sinusitis (461.1) 3 Active confirmed (Chavez) Problem Acute upper respiratory infection (17485126) Acute upper respiratory infections of unspecified site (465.9) 3 Active confirmed (Chavez) Plan Of Treatment No Information Insurance Providers Payer Name Payer Address Payer Phone Subscriber Number Group Number Insured Name Patient Relationship to Insured Coverage Start Date Coverage End Date [place] [facility] [address] [place] [phone] [id number] James Munroe Self - patient is the insured
== END 2025-04-27 23:59 | disposition home or self-care (01) ==
LOC: RAD 11:02
PROVIDERS: PCP Family Medicine; Visit Provider Internal Medicine Pulmonary Disease
DX: R91.8 Other nonspecific abnormal finding of lung field (principal); R59.0 Localized enlarged lymph nodes; F17.210 Nicotine dependence, cigarettes, uncomplicated; Z12.2 Encounter for screening for malignant neoplasm of respiratory organs
CPT/HCPCS: 71271

== ENCOUNTER 2025-09-10 16:38 | Emergency (ER) | payer MEDICARE, SELFPAY ==
[2025-09-10 16:49] VITALS: BP 141/85; PULSE 91; RESP 20; TEMP 36.6; O2SAT 100; BMI 24.0
--- NOTE | 2025-09-10 17:26 | XR_ITS ---
PROCEDURE INFORMATION: Exam: XR Chest Exam date and time: 09/10/2025 5:41 PM Age: 65 years old Clinical indication: Shortness of breath; Additional info: Short of breath TECHNIQUE: Imaging protocol: Radiologic exam of the chest. Views: 1 view. Total images: 1 COMPARISON: CT LUNG SCREENING 04/27/2025 11:11 AM FINDINGS: Lungs: Bilateral hyperinflation is present. Atelectatic changes right lung base. No focal pneumonia. Pleural spaces: No pleural effusion. No pneumothorax. Heart/Mediastinum: No cardiomegaly. Bones/joints: Rightward curvature of the thoracic spine with mild degenerative changes. IMPRESSION: 1. Bilateral hyperinflation is present. 2. Atelectatic changes right lung base. 3. No focal pneumonia.
--- NOTE | 2025-09-10 17:34 | PC.NURSE ---
respiratory notified of VBG specimen at lab
--- NOTE | 2025-09-10 17:35 | ED_ITS ---
<Statement entered by Alisia De La Rosa DO - 09/10/25 22:27> I was consulted by the KARRIE, and we discussed the complexity of the problems being addressed. I approved the treatment and management plan for this patient's care in the emergency department, thus performing a substantive portion of the medical decision making. Alisia De La Rosa DO Discharge Plan Disposition Chief Complaint: Hyper/Hypoglycemia Prescriptions Prescriptions: No Action famotidine [Acid Proj Engineer (famotidine)] 20 mg tablet 20 mg PO DAILYP PRN (Reason: Heartburn) hydroxyzine pamoate 25 mg capsule 25 mg PO DAILY azelastine 137 mcg (0.1 %) spray,non-aerosol 2 spray intranasal HS 90 Days Qty: 30 2RF Rx Instructions: administer into each nostril fluticasone propionate 50 mcg/actuation spray,suspension 1 spray intranasal DAILY 90 Days Qty: 16 3RF Rx Instructions: administer into each nostril montelukast 10 mg tablet 10 mg PO QPM 90 Days Qty: 90 2RF glucosamine-chondroitin 750-600 mg tablet 1 tab PO BID Patient Comments: 1,500mg-1,200mg 2 times daily ipratropium-albuterol 0.5 mg-3 mg(2.5 mg base)/3 mL solution for nebulization 3 ml inhalation QID PRN (Reason: shortness of breath or wheezing) Qty: 90 6RF duloxetine 60 mg capsule,delayed release(DR/EC) 60 mg PO DAILY Patient Comments: TAKE 1 CAPSULE BY MOUTH ONCE DAILY budesonide-formoterol [Symbicort] 160-4.5 mcg/actuation HFA aerosol inhaler 2 inh inhalation BID 90 Days Qty: 33 3RF albuterol sulfate 90 mcg/actuation HFA aerosol inhaler 1 inh inhalation QID PRN (Reason: shortness of breath or wheezing) Qty: 8.5 12RF loratadine [Claritin] 10 mg tablet 10 mg PO DAILY PRN (Reason: allergy symptoms) Qty: 30 3RF furosemide 40 mg tablet See Rx Instructions .ROUTE .COMPLEX Qty: 90 3RF Dose Instruction: TAKE 1 TABLET BY MOUTH DAILY FOR CHF Rx Instructions: TAKE 1 TABLET BY MOUTH DAILY FOR CHF metoprolol succinate 50 mg tablet extended release 24 hr 50 mg PO BID Qty: 180 3RF losartan 50 mg tablet See Rx Instructions .ROUTE .COMPLEX Qty: 90 3RF Dose Instruction: TAKE 1 TABLET BY MOUTH DAILY FOR HIGH BLOOD PRESSURE Rx Instructions: TAKE 1 TABLET BY MOUTH DAILY FOR HIGH BLOOD PRESSURE rosuvastatin 5 mg tablet See Rx Instructions .ROUTE .COMPLEX Qty: 90 3RF Dose Instruction: TAKE 1 TABLET BY MOUTH DAILY FOR CHOLESTEROL Rx Instructions: TAKE 1 TABLET BY MOUTH DAILY FOR CHOLESTEROL aspirin 81 MG tablet,delayed release (DR/EC) 81 mg PO DAILY diclofenac sodium 25 mg tablet,delayed release (DR/EC) 25 mg PO NEEDED PRN (Reason: Pain) Patient Comments: TAKE 1 TABLET BY MOUTH NEEDED 4 TIMES DAILY ketoconazole 2 % cream 1 applic TOPICAL DAILY epinephrine [EpiPen 2-Mook] 0.3 mg/0.3 mL auto-injector 0.3 mg IM Q10M PRN (Reason: anaphylaxis) Qty: 2 0RF Rx Instructions: for 2 doses montelukast 10 MG tablet 10 mg PO DAILY Referrals Follow up/Referrals: Yony Andrews MD [Primary Care Provider, Medical] - See instructions Instructions Patient Instructions: DI for Hyperglycemia in Adults Print Language Print Language: Maltese Discharge ED Provider: Alisia De La Rosa General Adult HPI <Leyla Dunham (ED), SEGMENT ASSEMBLER - Last Filed: 09/10/25 20:17> General Chief complaint: Hyper/Hypoglycemia Stated complaint: High Blood Sugars Time Seen by Provider: 09/10/25 16:53 Mode of Arrival: Ambulatory Source of Information: Patient and Spouse Description of Symptoms (Recalled from ER Triage Doc. by RN): patient presents for high sugar levels . he was diagnosed with type 2 diabetes 2 days ago at his PCP adn prescribed metformin. he stated this monring it was 394 and he checked it 20 minutes PEANUT SEPARATOR which was 511. triage glucose 443. History of Present Illness HPI narrative: 65-year-old male presents to the ED today for complaint of having elevated glucose levels. He was placed on metformin 2 days ago for an A1c of 12.2. He started the morning with a 394 glucose and checked it 20 minutes prior to arrival here and it was 511. They checked it again in triage and it was 443. Patient said he started to feel like his vision was changing and he was feeling tired. Patient ate brown sugar in his baked beans earlier. He said otherwise he has eaten cauliflower and baked chicken today. He has no other symptoms. Related Data Home Medications ?Medication ?Instructions ?Recorded ?Confirmed famotidine 20 mg tablet (Acid 20 mg PO DAILYP PRN Hear tburn 12/20/20 08/04/25 Proj Engineer (famotidine)) hydroxyzine pamoate 25 mg capsule 25 mg PO DAILY NERVE S 08/18/21 08/04/25 montelukast 10 mg tablet 10 mg PO DAILY ALLERGIES 08/04/25 aspirin 81 mg tablet,delayed 81 mg PO DAILY HEART HEAL TH 06/02/22 08/04/25 release diclofenac sodium 25 mg 25 mg PO NEEDED PRN Pain 08/16/24 08/04/25 tablet,delayed release ketoconazole 2 % topical cream 1 applic topical DAILY 08/16/24 08/04/25 duloxetine 60 mg capsule,delayed 60 mg PO DAILY 08/04/25 release glucosamine-chondroitin 750 mg-600 1 tab PO BID 08/04/25 mg tablet Previous Rx's ?Medication ?Instructions ?Recorded azelastine 137 mcg (0.1 %) nasal 2 spray intranasal HS 90 days #30 04/30/24 spray mL epinephrine 0.3 mg/0.3 mL 0.3 mg (0.3 mL) IM Q10M PRN 08/16/24 injection, auto-injector (EpiPen anaphylaxis #2 ea 2-Mook) ipratropium 0.5 mg-albuterol 3 mg 3 ml inhalation QID PRN shortness 10/30/24 (2.5 mg base)/3 mL nebulization of breath or wheezing #90 mL soln furosemide 40 mg tablet See Rx Instructions .Route 0 04/27/25 .COMPLEX #90 tabs Symbicort 160 mcg-4.5 2 inh inhalation BID 90 days #33 05/04/25 mcg/actuation HFA aerosol inhaler grams (budesonide-formoterol) albuterol sulfate 90 mcg/actuation 1 inh inhalation QI D PRN shortness 05/04/25 aerosol inhaler of breath or wheezing #8.5 g le loratadine 10 mg tablet (Claritin) 10 mg PO DAILY PRN allergy 05/04/25 symptoms #30 tabs losartan 50 mg tablet See Rx Instructions .Route 0 07/06/25 .COMPLEX #90 tabs metoprolol succinate 50 mg 50 mg PO BID High blood pre ssure 07/06/25 tablet,extended release 24 hr #180 tabs rosuvastatin 5 mg tablet See Rx Instructions .Route 0 07/06/25 .COMPLEX #90 tabs fluticasone propionate 50 1 spray intranasal DAILY 90 days 08/04/25 mcg/actuation nasal #16 grams spray,suspension montelukast 10 mg tablet 10 mg PO QPM 90 days #90 tab s 08/04/25 Allergies Allergy/AdvReac Type Severity Reaction Status Date / Time shellfish derived Allergy Anaphylaxis Verified 08/04/25 14:12 meloxicam AdvReac Intermediate raises Verified 08/04/25 14:12 blood pressure acetaminophen (From Percocet) AdvReac Mild bad dreams Verified 08/04/25 14:12 oxycodone (From Percocet) AdvReac Mild bad dreams Verified 08/04/25 14:12 [facility] <Leyla Dunham (ED), SEGMENT ASSEMBLER - Last Filed: 09/10/25 20:17> [facility] Disclaimer: The information contained in this section may have been updated after the patient was seen, as this information can be updated by other users. Medical History Borderline diabetes Diastolic dysfunction Infection due to Enterobacter aerogenes Pneumonia due to enterobacter aerogenes Exposure to COVID-19 virus COPD exacerbation Pulmonary emphysema History of 2019 novel coronavirus disease (COVID-19) Asthma-COPD overlap syndrome Allergic rhinitis, unspecified Moderate persistent asthma Dyspnea on exertion Pulmonary nodule 1 cm or greater in diameter History of colon polyps Elevated left ventricular end-diastolic pressure (LVEDP) CAD (coronary artery disease) Abnormal cardiovascular stress test Atypical angina Tachycardia Palpitations Abnormal electrocardiography Chest pain Dyspnea Surgical History H/O hernia repair History of lung biopsy History of arthroscopy of shoulder History of tonsillectomy History of colonoscopy Family History Other Cancer Diabetes Heart attack Social History Smoking Status: Never smoker smoking status stop date: 04/24/2013 second hand exposure: No alcohol intake: never substance use type: denies use current occupational status: unemployed and disabled Travel in the last 8 weeks?: None household members: spouse housing: house current occupational exposures/hazards: No caffeine: Yes Have you lived/traveled outside [place] in past 30 days?: No Contact w/someone who lives/traveled outside [place] past 30 days?: No Exposure to someone with infectious disease in past 14 days?: No Do you have a fever (greater than 100.4 F or 38 C)?: No Have you tested positive for COVID-19?: No Exposed to someone with COVID-19 in past 14 days?: No Do you have a sore throat?: No Do you have a cough?: No Do you have any weakness?: No Do you have any diarrhea?: No Are you experiencing any unusual bleeding?: No Do you have any muscle aches/pain?: No Do you have any abdominal pain?: No Are you experiencing loss of taste or smell?: No Other Medical History Have you received the Flu Vaccine for this season: Yes Have you received the Pneumonia Vaccine: Yes <Leyla Dunham (ED), SEGMENT ASSEMBLER - Last Filed: 09/10/25 20:17> ROS Obtained: Yes Systems reviewed as appropriate & no additional complaints except as documented Constitutional Constitutional: Reports as per HPI Physical Exam <Leyla Dunham (ED), SEGMENT ASSEMBLER - Last Filed: 09/10/25 20:17> General General appearance: alert and in no apparent distress Head Head exam: normocephalic Eye Eye exam: Present PERRL and EOMI ENT ENT exam: Present normal oropharynx and mucous membranes moist Neck Neck exam: Present full ROM and trachea midline Respiratory Respiratory exam: Present normal lung sounds bilaterally Cardiovascular Cardiovascular exam: Present regular rate, normal rhythm, normal heart sounds, +S1 and +S2 Abdominal Exam Abdominal exam: Present soft and normal bowel sounds Extremities Exam Extremities exam: Present normal inspection, full ROM and normal capillary refill Neurological Exam Neurological exam: Present alert and oriented X3 Skin Skin exam: Present warm and dry Medical Decision Making <Leyla Dunham (ED), SEGMENT ASSEMBLER - Last Filed: 09/10/25 20:17> Medical Records Screening: Per USPSTF and CDC recommendations, given the prevalence of disease in our region, it is our hospital?s policy to screen for HIV and viral Hepatitis for all patients aged 18 and over and those with ongoing risk factors. Bruno Inquiry Pt receiving controlled substance: No Bruno was queried for this patient: No Vital Signs: 09/10/25 16:49 09/10/25 18:17 Temperature 97.8 F 98.5 F Temperature Source Oral Oral Pulse Rate 103 H Pulse Rate [Right Radial] 91 H Respiratory Rate 20 18 Blood Pressure 109/63 L Blood Pressure [Right Arm] 141/85 H Blood Pressure Mean [Right Arm] 103 Blood Pressure Source Automatic Cuff Blood Pressure Source [Right Arm] Automatic Cuff Blood Pressure Position Sitting Blood Pressure Position [Right Arm] Sitting 02 Sat by Pulse Oximetry 100 96 Oxygen Delivery Method Room Air Room Air Lab Data Lab Results 09/10/25 17:29: WBC 6.1, RBC 4.39 L, Hgb 14.0 L, Hct 38.8 L, MCV 88.4, MCH 31.9 H, MCHC 36.1 H, RDW 11.5, Plt Count 186, MPV 10.6 H, Neut % (Auto) 69.9, Lymph % (Auto) 19.7, Tompkins % (Auto) 7.8, Eos % (Auto) 1.5, Baso % (Auto) 0.8, Neut # (Auto) 4.2, Lymph # (Auto) 1.2, Tompkins # (Auto) 0.5, Eos # (Auto) 0.1, Baso # (Auto) 0.1, VBG pH 7.42 H, VBG pCO2 32.6 L, VBG pO2 44.8 H, VBG HCO3 20.6 L, VBG Total CO2 21.6 L, VBG O2 Saturation 82.9 H, VBG Base Excess -3.9 L, VBG Lactic Acid 1.7, Sodium 124 L, Potassium 4.2, Chloride 96 L, Carbon Dioxide 21 L, Anion Gap 11.2, BUN 32 H, Creatinine 1.00, Estimated Creat Clear 83, Estimated GFR 75, Est GFR ( Amer) 91, Glucose 414 H*, Hemoglobin A1c 11.1 H, Calcium 9.5, Phosphorus 3.6, Magnesium 2.0, Total Bilirubin 0.7, AST 27, ALT 32, Alkaline Phosphatase 133 H, Total Protein 6.4, Albumin 4.2, Globulin 2.2, A lbumin/Globulin Ratio 1.9 H, Lipase 150, Acetone Level None detected 09/10/25 18:40: POC Glucose 377 H* 09/10/25 17:29 09/10/25 17:29 Orders (Tests/Meds): ED MEDICATIONS Generic Name Dose Route Start Last Admin Trade Name Argelia PRN Reason Stop Dose Admin Empagliflozin 25 mg 09/10/25 20:14 Empagliflozin 25mg Tablet PO 09/10/25 20:15 DAILY ONE Metformin HCl 850 mg 09/10/25 20:14 Metformin 850mg Tablet PO 09/10/25 20:15 ONCE ONE Discontinued Medications Generic Name Dose Route Start Last Admin Trade Name Freq PRN Reason Stop Dose Admin Sodium Chloride 1,000 mls @ 999 mls/hr 09/10/25 17:26 09/10/25 18:54 Sod Chlor 0.9% 1000ml Bag IV 09/10/25 18:26 Not Given .Q1H1M ONE Sodium Chloride 2,000 mls @ 999 mls/hr 09/10/25 17:30 09/10/25 18:08 Sod Chlor 0.9% 1000ml Bag IV 10/10/25 17:29 999 mls/hr .Q2H1M [place] Administration ORDERS Category Date Time Status Chest XR -- portable [XR chest portable] Stat Exams 09/10/25 17:26 Completed Acetone, Serum (Rapid) Stat Lab 09/10/25 17:29 Completed CBC [Complete Blood Count Auto Diff] Stat Lab 09/10/25 17:29 Completed Comprehensive Metabolic Panel Stat Lab 09/10/25 17:29 Completed Hemoglobin A1C Stat Lab 09/10/25 17:29 Completed Lipase Stat Lab 09/10/25 17:29 Completed Magnesium Stat Lab 09/10/25 17:29 Completed POC Glucose,Bedside Routine Lab 09/10/25 18:40 Completed Phosphorous Stat Lab 09/10/25 17:29 Completed Urinalysis and Microscopic Stat Lab 09/10/25 18:13 Received Venous Blood Gas Stat RT 09/10/25 17:29 Completed Medical Decision Narrative: patient is a 65-year-old male presenting to the emergency department for evaluation of elevated glucose at 511 20 minutes prior to arrival. Patient is hemodynamically stable and nontoxic-appearing upon arrival, afebrile. Differential diagnosis includes DKA hyperglycemia. Workup will be conducted with hematologic labs, specific imaging, provocative tests. Initial inventions include crystalloid bolus, analgesics, antibiotics. Initial workup reviewed by ne hematologic labs are remarkable for White blood cell count of 6.1, pH of 7.42, potassium 4.2 gap of 11.2 creatinine 1 BUN was little high at 32 initial glucose was 414 his current glucose is 177 A1c is 11.1 no acetone. Patient was given 2 L of IV fluids to get his glucose down he was also given his home metformin and Jardiance. He will see his PCP on Sunday <Alisia De La Rosa, DO - Last Filed: 09/10/25 18:12> Vital Signs: 09/10/25 16:49 09/10/25 18:17 Temperature 97.8 F 98.5 F Temperature Source Oral Oral Pulse Rate 103 H Pulse Rate [Right Radial] 91 H Respiratory Rate 20 18 Blood Pressure 109/63 L Blood Pressure [Right Arm] 141/85 H Blood Pressure Mean [Right Arm] 103 Blood Pressure Source Automatic Cuff Blood Pressure Source [Right Arm] Automatic Cuff Blood Pressure Position Sitting Blood Pressure Position [Right Arm] Sitting 02 Sat by Pulse Oximetry 100 96 Oxygen Delivery Method Room Air Room Air Lab Data Lab Results 09/10/25 17:29: WBC 6.1, RBC 4.39 L, Hgb 14.0 L, Hct 38.8 L, MCV 88.4, MCH 31.9 H, MCHC 36.1 H, RDW 11.5, Plt Count 186, MPV 10.6 H, Neut % (Auto) 69.9, Lymph % (Auto) 19.7, Tompkins % (Auto) 7.8, Eos % (Auto) 1.5, Baso % (Auto) 0.8, Neut # (Auto) 4.2, Lymph # (Auto) 1.2, Tompkins # (Auto) 0.5, Eos # (Auto) 0.1, Baso # (Auto) 0.1, VBG pH 7.42 H, VBG pCO2 32.6 L, VBG pO2 44.8 H, VBG HCO3 20.6 L, VBG Total CO2 21.6 L, VBG O2 Saturation 82.9 H, VBG Base Excess -3.9 L, VBG Lactic Acid 1.7, Sodium 124 L, Potassium 4.2, Chloride 96 L, Carbon Dioxide 21 L, Anion Gap 11.2, BUN 32 H, Creatinine 1.00, Estimated Creat Clear 83, Estimated GFR 75, Est GFR ( Amer) 91, Glucose 414 H*, Hemoglobin A1c 11.1 H, Calcium 9.5, Phosphorus 3.6, Magnesium 2.0, Total Bilirubin 0.7, AST 27, ALT 32, Alkaline Phosphatase 133 H, Total Protein 6.4, Albumin 4.2, Globulin 2.2, A lbumin/Globulin Ratio 1.9 H, Lipase 150, Acetone Level None detected 09/10/25 18:40: POC Glucose 377 H* Orders (Tests/Meds): ED MEDICATIONS Generic Name Dose Route Start Last Admin Trade Name Freq PRN Reason Stop Dose Admin Empagliflozin 25 mg 09/10/25 20:14 Empagliflozin 25mg Tablet PO 09/10/25 20:15 DAILY ONE Metformin HCl 850 mg 09/10/25 20:14 Metformin 850mg Tablet PO 09/10/25 20:15 ONCE ONE Discontinued Medications Generic Name Dose Route Start Last Admin Trade Name Freq PRN Reason Stop Dose Admin Sodium Chloride 1,000 mls @ 999 mls/hr 09/10/25 17:26 09/10/25 18:54 Sod Chlor 0.9% 1000ml Bag IV 09/10/25 18:26 Not Given .Q1H1M ONE Sodium Chloride 2,000 mls @ 999 mls/hr 09/10/25 17:30 09/10/25 18:08 Sod Chlor 0.9% 1000ml Bag IV 10/10/25 17:29 999 mls/hr .Q2H1M [place] Administration ORDERS Category Date Time Status Chest XR -- portable [XR chest portable] Stat Exams 09/10/25 17:26 Completed Acetone, Serum (Rapid) Stat Lab 09/10/25 17:29 Completed CBC [Complete Blood Count Auto Diff] Stat Lab 09/10/25 17:29 Completed Comprehensive Metabolic Panel Stat Lab 09/10/25 17:29 Completed Hemoglobin A1C Stat Lab 09/10/25 17:29 Completed Lipase Stat Lab 09/10/25 17:29 Completed Magnesium Stat Lab 09/10/25 17:29 Completed POC Glucose,Bedside Routine Lab 09/10/25 18:40 Completed Phosphorous Stat Lab 09/10/25 17:29 Completed Urinalysis and Microscopic Stat Lab 09/10/25 18:13 Received Venous Blood Gas Stat RT 09/10/25 17:29 Completed ECG Data Tracing #1: I reviewed this ECG and interpreted as documented below: I independently interpreted EKG at 1742 and noted sinus rhythm with a ventricular of [address] changes concerning for STEMI. Normal intervals ECG initial impression date: 09/10/25 ECG initial impression time: 17:42 Critical Care <Leyla Dunham (ED), SEGMENT ASSEMBLER - Last Filed: 09/10/25 20:17> Critical Care Time Critical Care Time: No
[2025-09-10 17:38] LABS: Hematocrit 38.8 % (42.0-52.0); Hemoglobin 14.0 g/dL (14.1-18.0); Immature Granulocytes % 0.3 %; Lactate Venous 1.7 mmol/L (0.4-2.0); Mean Corpuscular HGB Conc 36.1 g/dL (31.8-35.4); Mean Corpuscular Hemoglobin 31.9 pg (27.0-31.2); Mean Corpuscular Volume 88.4 fl (80-94); Nucleated Red Blood Cells % 0 %; Platelet Count 186 K/mm3 (142-424); Red Blood Count 4.39 M/mm3 (4.60-6.20); Red Cell Distribution Width-SD 37.1 fL; VBG HCO3 20.6 mmol/L (23-30); VBG PCO2 32.6 mmol/L (35-51); VBG PH 7.42 mmol/L (7.31-7.41); VBG PO2 44.8 mmol/L (28-40); White Blood Count 6.1 K/mm3 (4.8-10.8)
--- NOTE | 2025-09-10 17:38 | ECG_ITS ---
APPROVED REPORT Exam: Resting ECG HR:78 bpm ECG Measurements Heart Rate 78 AXES AL 144 P 61 QRSd 88 QRS 14 QT 364 T 58 QTc 397 Conclusion SINUS RHYTHM NORMAL ECG Electronically signed by : OVIDIO MASON, 09/10/2025 23:05:58
--- NOTE | 2025-09-10 17:41 | PC.NURSE ---
PT TO XR
[2025-09-10 18:00] LABS: Acetone, Serum (Rapid) None Detected (None Detect)
[2025-09-10 18:06] LABS: Phosphorous 3.6 mg/dl (2.5-4.5)
[2025-09-10 18:07] LABS: Alanine Aminotransferase 32 U/L (12-78); Albumin Level 4.2 g/dl (3.5-5.0); Albumin/Globulin Ratio 1.9 (1.1-1.8); Alkaline Phosphatase 133 U/L (38-126); Anion Gap 11.2 mEq/L (5-15); Aspartate Amino Transferase 27 U/L (17-59); Bilirubin,Total 0.7 mg/dl (0.2-1.3); Blood Urea Nitrogen 32 mg/dl (9-20); Calcium 9.5 mg/dl (8.4-10.2); Carbon Dioxide 21 mmol/L (22.0-30.0); Chloride 96 mmol/L (98-107); Creatinine Clearance Estimated 83 mL/min (50-200); Creatinine,Serum 1.00 mg/dl (0.66-1.25); Estimated Glomerular Filt Rate 75 ml/min (>60); GFR (African American) 91 ML/MIN (>60); Globulin 2.2 g/dL (1.3-3.2); Lipase 150 U/L (23-300); Magnesium 2.0 mg/dl (1.6-2.3); Potassium 4.2 mmoL/L (3.5-5.1); Sodium 124 mmol/L (136-145); Total Protein,Serum 6.4 g/dl (6.3-8.2)
[2025-09-10] MEDS: 0.9 % SODIUM CHLORIDE 1000ML 2,000 ML 999 ML IV (18:08)
[2025-09-10 18:11] LABS: Glucose 414 mg/dl (74-100)
[2025-09-10 18:17] VITALS: BP 109/63; PULSE 103; RESP 18; TEMP 36.9; O2SAT 96
[2025-09-10 18:50] LABS: POC Glucose,Bedside 377 gm/dL (70-110)
[2025-09-10 18:56] LABS: Hemoglobin A1C 11.1 % (4.0-6.0)
[2025-09-10 20:07] LABS: Microscopic, Urine URINE MICROSCOPIC (MICROSCOPIC)
[2025-09-10 20:09] LABS: Bilirubin,Urine Negative (Negative); Color,Urine YELLOW (Yellow); Glucose,Urine (UA) 3+ (Negative); Ketones,Urine Negative (Negative); Leukocyte Esterase,Urine Negative (Negative); PH,Urine 5.5 (5.0-8.5); Protein,Urine Negative (Negative); Specific Gravity, Urine 1.015 (1.005-1.030); Urobilinogen,Urine 0.2 EU/dl (0.2)
[2025-09-10 20:16] LABS: POC Glucose,Bedside 335 gm/dL (70-110)
[2025-09-10 20:36] VITALS: BP 111/60; PULSE 74; RESP 14; TEMP 36.6; O2SAT 100
[2025-09-10 20:40] LABS: Bacteria,Urine Trace /lpf
[2025-09-15 15:25] LABS: POC Glucose,Bedside 443 gm/dL (70-110)
== END 2025-09-10 20:36 | disposition home or self-care (01) ==
PROVIDERS: Nurse Practitioner; Emergency Provider Emergency Medicine; PCP Family Medicine
DX: E11.65 Type 2 diabetes mellitus with hyperglycemia (principal); E87.1 Hypo-osmolality and hyponatremia; H53.8 Other visual disturbances; R53.83 Other fatigue; Z79.84 Long term (current) use of oral hypoglycemic drugs
CPT/HCPCS: 71045; 80053; 81001; 82009; 82803; 82962; 83036; 83690; 83735; 84100; 85025; 93005; 96360; 99285; J7030